=== PATIENT | female | born 1940 | race Caucasian/White ===

== ENCOUNTER 2020-07-22 04:14 | Inpatient (IN) | payer OTHER ==
--- OUTSIDE RECORDS SUMMARY | 2020-07-22 04:17 | XMS REPORT | Continuity of Care Document ---
:1940 Author Organization [facility] Address [address] [place] [address] Dr. Noriega [address] [place] [id number] Care Team Providers Name Role Phone Familia PRIETO Primary Care Physician Unavailable SANDRA Attending Clinician Unavailable Jessica MANCERA Attending Clinician Unavailable Keshia THAKKAR Attending Clinician Unavailable Familia PRIETO Attending Clinician Unavailable Ronaldo BRIZUELA Attending Clinician Unavailable TONY Attending Clinician Unavailable ROSENDA Attending Clinician Unavailable Keshia THAKKAR Admitting Clinician Unavailable Payers Payer Name Policy Type Policy Number Effective Date Expiration Date S estrellita [employer] MEDICARE [id number] 2013 PPO 00:00:00 MEDICARE [id number] ADVANTAGE GENERIC 00:00:00 Problems This patient has no known problems. Allergies, Adverse Reactions, Alerts This patient has no known allergies or adverse reactions. Medications This patient has no known medications. Vital Signs Vital Name Observation Time Observation Value Comments Source HEIGHT 2020-06-14 13:01:08 159 cm WEIGHT 2020-06-14 13:01:08 57.8 kg WEIGHT 2020-05-23 13:15:00 57.9 kg Procedures This patient has no known procedures. Encounters Start End Encounter Admission Attending Care Care Encounter Source Date/Time Date/Time Type Type Clinicians Facility Department ID 2020-07-03 2020-07-03 Outpatient STEPHANIE FLORES MDA MDA [id number] 11:06:14 11:06:14 GIANNI nelson 2020-07-03 2020-07-03 Outpatient STEPHANIE FLORSE MDA MDA [id number] FISCHER 10:21:07 10:21:07 GIANNI nelson 2020-06-14 2020-06-14 Outpatient STEPHANIE CAMARGO MDA, MDA [id number] 14:00:00 23:59:00 S, Sd nelson 2020-06-14 2020-06-14 Outpatient EL MARY JO MDA MDA [id number] 12:55:15 15:26:39 S, Sd nelson 2020-05-23 2020-05-23 Outpatient STEPHANIE THAKKAR, MDA Doretha/Hep/Nu 10 [id number] 12:43:00 19:05:00 CHASTITY nelson 2020-05-22 2020-05-22 Outpatient STEPHANIE PRIETO, MDA MDA [id number] 07:13:44 07:13:44 MATIAS nelson 2020-05-21 2020-05-21 Outpatient STEPHANIE PRIETO, MDA MDA [id number] 11:30:44 12:10:01 MATIAS nelson 2020-05-16 2020-05-16 Outpatient CHELLE BRIZUELA MDA MDA [id number] 08:22:43 08:22:43 Sd nelson 2020-03-29 2020-03-29 Outpatient [facility], MDA MDA [id number] MD 15:10:05 15:10:05 FRED Sd nelson 2020-03-28 2020-03-28 Outpatient CHELLE BRIZUELA MDA MDA [id number] 08:17:03 08:17:03 Sd nelson 2015-10-30 2015-10-30 Outpatient STEPHANIE HERZOG, MDA MDA [id number] 07:45:41 07:45:41 THONY nelson Results This patient has no known results.
[2020-07-22 04:46] LABS: Protime INR 0.95
[2020-07-22 04:47] LABS: Absolute Lymphocytes (CBC) 2.5 K/uL (0.7-4.9); Basophils % 0.8 % (0-1.3); Hematocrit 33.8 % (36.0-45.0); Lymphocytes % 27.5 % (15.3-44.8); MPV 8.5 fL (7.6-11.3); RBC Red Blood Cell Count 3.69 M/uL (3.86-4.86)
[2020-07-22] MEDS ORDERED: ALBUTEROL INHALER 60 PUFF/8 GM IH ONE (04:59)
[2020-07-22 05:05] LABS: ALT/SGPT 57 U/L (12-78); AST/SGOT 50 U/L (15-37); Albumin 2.9 g/dL (3.4-5.0); Alkaline Phosphatase 82 U/L (45-117); BUN Blood Urea Nitrogen 15 mg/dL (7-18); Bicarbonate 26 mmol/L (21-32); Bilirubin Direct 0.1 mg/dL (0-0.2); Bilirubin Total 0.4 mg/dL (0.2-1.0); Glucose Level 120 mg/dL (74-106); Magnesium 2.5 mg/dL (1.8-2.4); NT PRO-BNP 2519 pg/mL (<450); Potassium 3.3 mmol/L (3.5-5.1); Protein, Total 6.3 g/dL (6.4-8.2); Sodium Level 140 mmol/L (136-145); Troponin (Emerg Dept Use Only) < 0.02 ng/mL (0.0-0.045)
--- NOTE | 2020-07-22 05:28 | ER ---
Nurse's Notes [facility] Name: Estefany Ryder Age: 79 yrs Sex: Female : 1940 Arrival Date: 07/22/2020 Time: 04:21 Bed 5 Private MD: Diagnosis: Acute systolic (congestive) heart failure Presentation: 07/22 04:24 Chief complaint: EMS states: she has difficulty breathing all day , on nebs at home. mg2 she is also complaining of bilateral leg swelling. Coronavirus screen: Client denies travel out of the [place] in the last 14 days. Client presents with at least one sign or symptom that may indicate coronavirus-19. Standard/surgical mask placed on the client. Provider contacted for isolation considerations. Ebola Screen: No symptoms or risks identified at this time. Initial Sepsis Screen: Does the patient meet any 2 criteria? No. Patient's initial sepsis screen is negative. Does the patient have a suspected source of infection? No. Patient's initial sepsis screen is negative. Risk Assessment: Do you want to hurt yourself or someone else? Patient reports no desire to harm self or others. Onset of symptoms was July 21, 2020. 04:24 Method Of Arrival: EMS: [facility] mg2 04:24 Acuity: DERIK 3 mg2 Triage Assessment: 04:33 General: Appears in no apparent distress. Behavior is calm, cooperative. Pain: Denies mg2 pain. EENT: No signs and/or symptoms were reported regarding the EENT system. Neuro: Level of Consciousness is awake, alert, obeys commands, Oriented to person, place, time, situation. Cardiovascular: Capillary refill < 3 seconds Patient's skin is warm and dry. Respiratory: Reports shortness of breath at rest Onset: The symptoms/episode began/occurred today, the patient has mild shortness of breath. GI: No signs and/or symptoms were reported involving the gastrointestinal system. : No signs and/or symptoms were reported regarding the genitourinary system. Derm: Skin is intact, is healthy with good turgor, Skin is pink, warm \T\ dry. normal. Musculoskeletal: Circulation, motion, and sensation intact. Capillary refill < 3 seconds. Historical: - Allergies: 04:33 Ibuprofen; mg2 04:33 Indocin; mg2 04:33 Codeine; mg2 04:33 promine; mg2 04:33 E.E.S. 400; mg2 04:33 nalfon 600; mg2 04:33 adenosine; mg2 04:33 chemical stress test; mg2 04:33 caffeine; mg2 04:33 sodium pentaathol; mg2 04:33 fulvicin; mg2 04:33 Naprosyn; mg2 04:33 Clarithromycin; mg2 04:33 sumycin; mg2 04:33 achromycin; mg2 04:33 TETRACYCLINES; mg2 04:33 Keflex; mg2 04:33 keftab; mg2 04:33 Erythromycin; mg2 04:33 Flagyl; mg2 04:33 neodecadron opthalmic soln; mg2 04:33 Maxitrol; mg2 04:33 Cephalosporins; mg2 04:33 Ceclor; mg2 04:33 Cefaclor; mg2 04:33 Cephalexin; mg2 04:33 Biaxin; mg2 04:33 amox TR K CLV; mg2 04:33 Bactrim; mg2 04:33 NSAIDS; mg2 04:33 Advil; mg2 04:33 Aleve; mg2 - PMHx: 04:33 BReast CA; lymphoma; lung CA; COPD; mg2 - PSHx: 04:33 Lobectomy; right breast mastectomy; mg2 - Immunization history:: Flu vaccine status is unknown. - Social history:: Smoking status: Patient/guardian denies using tobacco. Screenin:34 Abuse screen: Denies threats or abuse. Denies injuries from another. Nutritional mg2 screening: No deficits noted. Tuberculosis screening: No symptoms or risk factors identified. Fall Risk IV access (20 points). Assessment: 04:34 General: see triage assessment. mg2 04:35 Cardiovascular: Rhythm is regular. Respiratory: Airway is patent Respiratory effort is mg2 even. 06:24 Respiratory: Breath sounds with crackles bilaterally. rv Vital Signs: 04:24 BP 161 / 82; Pulse 62; Resp 26; Temp 98.5; Pulse Ox 97% on R/A; Weight 57.61 kg; Height mg2 5 ft. 4 in. (162.56 cm); 07:00 BP 124 / 64; Pulse 83; Resp 17; Pulse Ox 100% ; sv 08:00 BP 110 / 50; Pulse 77; Resp 18; Pulse Ox 100% ; sv 09:00 BP 98 / 49; Pulse 87; Resp 19; Pulse Ox 100% ; sv 10:00 BP 99 / 59; Pulse 93; Resp 21; Pulse Ox 100% ; sv 04:24 Body Mass Index 21.80 (57.61 kg, 162.56 cm) mg2 ED Course: 04:20 Inserted saline lock: 20 gauge in right antecubital area, using aseptic technique. rv Blood collected. 04:20 Initial lab(s) drawn, by me, sent to lab. EKG done, by ED staff, reviewed by Federico Torre MD. 04:21 Patient arrived in ED. cf2 04:22 Federico Torre MD is Attending Physician. mh7 04:22 Viet Bishop, RN is Primary Nurse. rv 04:26 Triage completed. mg2 04:34 Arm band placed on. mg2 04:34 Patient has correct armband on for positive identification. consumer insight analyst on. Pulse mg2 ox on. NIBP on. Door closed. Warm blanket given. 04:35 No provider procedures requiring assistance completed. mg2 04:35 COVID swab sent to lab. mg2 04:38 XRAY Chest (1 view) In Process Unspecified. EDMS 05:27 Justina Washburn MD is Hospitalizing Provider. mh7 06:24 IV is patent, with fluids infusing freely, Patient admitted, IV remains in place. rv 06:27 Malone cath inserted, using sterile technique, 16 Fr., by me, balloon inflated, to rv gravity drainage, returned clear yellow urine. Patient tolerated well. 07:33 Basic Metabolic Panel Sent. sv 07:33 CBC with Diff Sent. sv 07:33 LFT's Sent. sv 07:33 Magnesium Sent. sv 09:01 Primary Nurse role handed off by Viet Bishop, MICHEL sv 09:01 Wlima Weir, MICHEL is Primary Nurse. sv Administered Medications: 05:01 Not Given (Patient Refused): Albuterol HFA Inhaler 2 puffs Inhalation once mg2 05:21 Drug: Lasix (furosemide) 20 mg Route: IVP; Site: left antecubital; rv 06:24 Follow up: Response: No adverse reaction rv Outcome: 05:28 Decision to Hospitalize by Provider. mh7 06:24 Admitted to ER Hold. Please see [facility] for further documentation. rv 06:24 Condition: good 06:24 Instructed on the need for admit. 16:03 Patient left the ED. sv Signatures: Dispatcher [employer] EDMS Carmella, Wilma, MICHEL RN Joey Levine RN RN [facility] Viet Bishop RN RN Clemencia Morillo [facility] Federico Torre MD MD 7
--- NOTE | 2020-07-22 05:28 | EDPHYS ---
Physician Documentation [facility] Name: Estefany Ryder Age: 79 yrs Sex: Female : 1940 Arrival Date: 07/22/2020 Time: 04:21 Bed 5 Private MD: ED Physician Federico Torre HPI: 07/22 04:39 This 79 yrs old Female presents to ER via EMS with complaints of Shortness Of mh7 Breath. 04:39 The patient has shortness of breath with light activity. Onset: The symptoms/episode mh7 began/occurred yesterday. Duration: The symptoms are intermittent, with no pattern. The patient's shortness of breath is aggravated by light activity, is alleviated by nothing. Associated signs and symptoms: Pertinent negatives: chest pain, non-productive cough, productive cough, diaphoresis, dizziness, fever, hemoptysis, loss of consciousness, nausea, numbness in extremities, visual changes, vomiting. Severity of symptoms: At their worst the symptoms were moderate last night, in the emergency department the symptoms have improved mildly. Historical: - Allergies: 04:33 Ibuprofen; mg2 04:33 Indocin; mg2 04:33 Codeine; mg2 04:33 promine; mg2 04:33 E.E.S. 400; mg2 04:33 nalfon 600; mg2 04:33 adenosine; mg2 04:33 chemical stress test; mg2 04:33 caffeine; mg2 04:33 sodium pentaathol; mg2 04:33 fulvicin; mg2 04:33 Naprosyn; mg2 04:33 Clarithromycin; mg2 04:33 sumycin; mg2 04:33 achromycin; mg2 04:33 TETRACYCLINES; mg2 04:33 Keflex; mg2 04:33 keftab; mg2 04:33 Erythromycin; mg2 04:33 Flagyl; mg2 04:33 neodecadron opthalmic soln; mg2 04:33 Maxitrol; mg2 04:33 Cephalosporins; mg2 04:33 Ceclor; mg2 04:33 Cefaclor; mg2 04:33 Cephalexin; mg2 04:33 Biaxin; mg2 04:33 amox TR K CLV; mg2 04:33 Bactrim; mg2 04:33 NSAIDS; mg2 04:33 Advil; mg2 04:33 Aleve; mg2 - PMHx: 04:33 BReast CA; lymphoma; lung CA; COPD; mg2 - PSHx: 04:33 Lobectomy; right breast mastectomy; mg2 - Immunization history:: Flu vaccine status is unknown. - Social history:: Smoking status: Patient/guardian denies using tobacco. ROS: 04:39 Constitutional: Negative for fever, chills, and weight loss, Eyes: Negative for injury, mh7 pain, redness, and discharge, ENT: Negative for injury, pain, and discharge, Neck: Negative for injury, pain, and swelling, Cardiovascular: Negative for chest pain, palpitations, and edema, Abdomen/GI: Negative for abdominal pain, nausea, vomiting, diarrhea, and constipation, Back: Negative for injury and pain, : Negative for injury, bleeding, discharge, and swelling. 04:39 Skin: Negative for injury, rash, and discoloration, Neuro: Negative for headache, weakness, numbness, tingling, and seizure, Psych: Negative for depression, anxiety, suicide ideation, homicidal ideation, and hallucinations, Allergy/Immunology: Negative for hives, rash, and allergies, Endocrine: Negative for neck swelling, polydipsia, polyuria, polyphagia, and marked weight changes, Hematologic/Lymphatic: Negative for swollen nodes, abnormal bleeding, and unusual bruising. 04:39 MS/extremity: Positive for swelling. Exam: 04:39 Head/Face: Normocephalic, atraumatic. Eyes: Pupils equal round and reactive to light, mh7 extra-ocular motions intact. Lids and lashes normal. Conjunctiva and sclera are non-icteric and not injected. Cornea within normal limits. Periorbital areas with no swelling, redness, or edema. Neck: Trachea midline, no thyromegaly or masses palpated, and no cervical lymphadenopathy. Supple, full range of motion without nuchal rigidity, or vertebral point tenderness. No Meningismus. Chest/axilla: Normal chest wall appearance and motion. Nontender with no deformity. No lesions are appreciated. Cardiovascular: Regular rate and rhythm with a normal S1 and S2. No gallops, murmurs, or rubs. Normal PMI, no JVD. No pulse deficits. 04:39 Abdomen/GI: Soft, non-tender, with normal bowel sounds. No distension or tympany. No guarding or rebound. No evidence of tenderness throughout. Back: No spinal tenderness. No costovertebral tenderness. Full range of motion. Skin: Warm, dry with normal turgor. Normal color with no rashes, no lesions, and no evidence of cellulitis. MS/ Extremity: Pulses equal, no cyanosis. Neurovascular intact. Full, normal range of motion. Neuro: Awake and alert, GCS 15, oriented to person, place, time, and situation. Cranial nerves II-XII grossly intact. Motor strength 5/5 in all extremities. Sensory grossly intact. Cerebellar exam normal. Normal gait. Psych: Awake, alert, with orientation to person, place and time. Behavior, mood, and affect are within normal limits. 04:39 Constitutional: The patient appears alert, awake, uncomfortable. 04:39 Respiratory: mild respiratory distress is noted, Respirations: tachypnea, that is mild, Breath sounds: rhonchi, that are mild, are scattered, wheezing: expiratory that is mild, is scattered, Respiratory rate: 26 Vital Signs: 04:24 BP 161 / 82; Pulse 62; Resp 26; Temp 98.5; Pulse Ox 97% on R/A; Weight 57.61 kg; Height mg2 5 ft. 4 in. (162.56 cm); 07:00 BP 124 / 64; Pulse 83; Resp 17; Pulse Ox 100% ; sv 08:00 BP 110 / 50; Pulse 77; Resp 18; Pulse Ox 100% ; sv 09:00 BP 98 / 49; Pulse 87; Resp 19; Pulse Ox 100% ; sv 10:00 BP 99 / 59; Pulse 93; Resp 21; Pulse Ox 100% ; sv 04:24 Body Mass Index 21.80 (57.61 kg, 162.56 cm) mg2 MDM: 05:26 Differential diagnosis: Anemia Anxiety Reaction asthma, Bronchitis CHF exacerbation, mh7 Chronic Obstructive Pulmonary Disease Myocardial Infarction pneumonia, Pneumothorax Psychogenic pulmonary edema, reactive airway disease. Data reviewed: vital signs, nurses notes, EMS record, lab test result(s), cardiac enzymes, CBC, electrolytes, EKG, radiologic studies, plain films. Data interpreted: Pulse oximetry: on 2L(s) per nasal canula, is 97 %. Interpretation: acceptable. Counseling: I had a detailed discussion with the patient and/or guardian regarding: the historical points, exam findings, and any diagnostic results supporting the discharge/admit diagnosis, the presence of at least one elevated blood pressure reading (>120/80) during this emergency department visit, lab results, radiology results, the need for further work-up and treatment in the hospital. 05:28 Patient medically screened. [facility] 07/22 04:23 Order name: Basic Metabolic Panel [facility] 07/22 04:23 Order name: CBC with Diff [facility] 07/22 04:23 Order name: LFT's [facility] 07/22 04:23 Order name: Magnesium [facility] 07/22 04:23 Order name: NT PRO-BNP; Complete Time: 05:09 [facility] 07/22 04:23 Order name: PT-INR; Complete Time: 05:09 [facility] 07/22 04:23 Order name: Troponin (emerg Dept Use Only); Complete Time: 05:09 [facility] 07/22 04:23 Order name: Basic Metabolic Panel; Complete Time: 05:09 EDMS 07/22 04:23 Order name: CBC with Automated Diff; Complete Time: 05:09 MS 07/22 04:23 Order name: Liver (Hepatic) Function; Complete Time: 05:09 EDVT 07/22 04:23 Order name: Magnesium; Complete Time: 05:09 MS 07/22 05:36 Order name: SARS-COV-2 RT PCR [facility] 07/22 08:15 Order name: CBC with Automated Diff [facility] 07/22 04:23 Order name: XRAY Chest (1 view) [facility] 07/22 04:23 Order name: EKG; Complete Time: 04:24 [facility] 07/22 08:15 Order name: CONS Physician Consult [facility] 07/22 08:15 Order name: Heart Healthy [facility] 07/22 08:15 Order name: Echo with Doppler [facility] 07/22 08:15 Order name: CBC with Automated Diff [facility] 07/22 08:15 Order name: Comprehensive Metabolic Panel [facility] 07/22 08:15 Order name: Comprehensive Metabolic Panel [facility] 07/22 08:15 Order name: Magnesium EDMS 07/22 08:15 Order name: Magnesium EDMS 07/22 08:15 Order name: NT PRO-BNP MS 07/22 08:15 Order name: NT PRO-BNP EDMS 07/22 08:15 Order name: Phosphorus MS 07/22 08:15 Order name: Phosphorus MS 07/22 04:23 Order name: Cardiac monitoring; Complete Time: 04:32 [facility] 07/22 04:23 Order name: EKG - Nurse/Tech; Complete Time: 04:32 7 07/22 04:23 Order name: IV Saline Lock; Complete Time: :32 7 07/22 04:23 Order name: Labs collected and sent; Complete Time: :32 7 07/22 04:23 Order name: O2 Per Protocol; Complete Time: 04:32 mh7 07/22 04:23 Order name: O2 Sat Monitoring; Complete Time: :32 mh7 Administered Medications: 05:01 Not Given (Patient Refused): Albuterol HFA Inhaler 2 puffs Inhalation once mg2 05:21 Drug: Lasix (furosemide) 20 mg Route: IVP; Site: left antecubital; rv 06:24 Follow up: Response: No adverse reaction rv Disposition: 07/22/20 05:28 Hospitalization ordered by Justina Washburn for Inpatient Admission. Preliminary diagnosis is Acute systolic (congestive) heart failure. - Bed requested for Telemetry/MedSurg (Inpatient). - Status is Inpatient Admission. sv - Condition is Stable. - Problem is new. - Symptoms have improved. Signatures: Dispatcher [employer] EDVT Wilma Weir RN RN sv Webb, Martha, RN RN Teri Madrid RN RN Vivian Garcia Michele RN MICHEL [facility] Viet Bishop RN Federico Hernandez MD MD mh7 Corrections: (The following items were deleted from the chart) 04:46 04:31 CORONAVIRUS+MR.LAB.BRZ ordered. [facility] EDVT 05:33 05:28 Hospitalization Ordered by Justina Washburn MD for Inpatient Admission. Preliminary diagnosis is Acute systolic (congestive) heart failure. Bed requested for Telemetry/MedSurg (Inpatient). Status is Inpatient Admission. Condition is Stable. Problem is new. Symptoms have improved. 7 07:08 05:33 07/22/2020 05:28 Hospitalization Ordered by Justina Washburn MD for Inpatient ss Admission. Preliminary diagnosis is Acute systolic (congestive) heart failure. Bed requested for [facility] ER HOLD. Status is Inpatient Admission. Condition is Stable. Problem is new. Symptoms have improved. mw 07:10 07:08 07/22/2020 05:28 Hospitalization Ordered by Justina Washburn MD for Inpatient ss Admission. Preliminary diagnosis is Acute systolic (congestive) heart failure. Bed requested for Telemetry/MedSurg (observation). Status is Inpatient Admission. Condition is Stable. Problem is new. Symptoms have improved. ss 08:51 07:10 07/22/2020 05:28 Hospitalization Ordered by Justina aWshburn MD for Inpatient eb Admission. Preliminary diagnosis is Acute systolic (congestive) heart failure. Bed requested for Telemetry/MedSurg (Inpatient). Status is Inpatient Admission. Condition is Stable. Problem is new. Symptoms have improved. ss 14:27 08:51 07/22/2020 05:28 Hospitalization Ordered by Justina Washburn MD for Inpatient sv Admission. Preliminary diagnosis is Acute systolic (congestive) heart failure. Bed requested for [facility] ER HOLD. Status is Inpatient Admission. Condition is Stable. Problem is new. Symptoms have improved. eb 16:03 14:27 07/22/2020 05:28 Hospitalization Ordered by Justina Washburn MD for Inpatient sv Admission. Preliminary diagnosis is Acute systolic (congestive) heart failure. Bed requested for Telemetry/MedSurg (Inpatient). Status is Inpatient Admission. Condition is Stable. Problem is new. Symptoms have improved. sv
[2020-07-22] MEDS ORDERED: FUROSEMIDE 20 MG/ 2ML VIAL ONE (05:36)
[2020-07-22] MEDS ORDERED: ONDANSETRON 4 MG/2 ML VIAL IV PRN (08:10)
[2020-07-22] MEDS ORDERED: ACETAMINOPHEN 500 MG TAB PO PRN (08:10)
[2020-07-22] MEDS: FUROSEMIDE 40 MG/4 ML VIAL IV SCH ×2 (09:00→16:56)
[2020-07-22] MEDS ORDERED: NA CHLORIDE 0.9% 1,000 ML IV SCH (09:00)
[2020-07-22] MEDS: ENOXAPARIN 40 MG/0.4 ML SQ SCH (09:00)
--- NOTE | 2020-07-22 10:15 | EKG ---
Test Date: 2020-07-22 Test Time: 04:24:57 Node Js Developer: KARL MEASUREMENT RESULTS: Intervals: Rate: 101 PA: 166 QRSD: 82 QT: 348 QTc: 451 Altair: P: 76 PA: 166 QRS: 71 T: 59 INTERPRETIVE STATEMENTS: Sinus tachycardia with premature atrial complexes Otherwise normal ECG Compared to ECG 01/13/2006 09:54:42 Atrial premature complex(es) now present Sinus rhythm no longer present Electronically Signed On 07-22-20 10:15:03 CDT by Emerson Palacios
[2020-07-22 10:18] VITALS: BMI 21.5
--- NOTE | 2020-07-22 12:19 | RAD REPORT ---
EXAM DESCRIPTION: RAD - Chest Single View - 07/22/2020 4:40 am CLINICAL HISTORY: SOB, lung cancer COMPARISON: February 2017 TECHNIQUE: AP portable chest image was obtained 07/22/2020 4:40 am . FINDINGS: Right lung field fibrotic changes are present. Interstitial and patchy alveolar opacities are present in the lower right lung field increased over the prior study. Stranding in the upper righ t lung field is not clearly different and probably scarring. Fullness of the right hilum is present b ut not clearly different from comparison. Left apical fluid or pleural thickening has not changed. Postsurgical changes are noted in the left h ilum and left suprahilar region. Left-sided Port-A-Cath has been removed since prior imaging. Left he midiaphragm tenting is present. Heart and vasculature are normal. No measurable pleural effusion and no pneumothorax. No acute bony a bnormality seen. No acute aortic findings suspected. IMPRESSION: Suspected patchy pneumonia in the lower right lung field superimposed on a chronic old h as not. Chronic fibrotic and postsurgical changes to the left hemithorax.
[2020-07-22] MEDS ORDERED: POTASSIUM CL SA 10 MEQ TAB PO ONE ×2 (14:46→15:18)
[2020-07-22] MEDS: Levofloxacin500mg IV 500 MG/100 ML BAG IV SCH (15:00)
[2020-07-22] MEDS ORDERED: Levofloxacin500mg IV 500 MG/100 ML BAG IV ONE (15:18)
[2020-07-22] MEDS: ALBUTEROL 2.5 MG/3 ML NEB SOL NEB SCH ×2 (16:00→20:05)
[2020-07-22] MEDS: IPRATROPIUM BROM 0.5MG/2.5ML NEB SCH ×2 (16:00→20:05)
[2020-07-22] MEDS: METHYLPREDNISOLONE 40 MG INJ IV SCH ×2 (16:58→17:00)
[2020-07-22] MEDS: METOPROLOL TAR 50 MG TAB PO SCH (21:16)
[2020-07-23] MEDS: FUROSEMIDE 40 MG/4 ML VIAL IV SCH ×2 (00:49→08:54)
[2020-07-23] MEDS: METHYLPREDNISOLONE 40 MG INJ IV SCH ×2 (00:50→08:54)
[2020-07-23] MEDS: ALBUTEROL 2.5 MG/3 ML NEB SOL NEB SCH ×3 (01:35→13:13)
[2020-07-23] MEDS: IPRATROPIUM BROM 0.5MG/2.5ML NEB SCH ×3 (01:35→13:13)
[2020-07-23 06:10] LABS: Absolute Lymphocytes (CBC) 0.8 K/uL (0.7-4.9); Basophils % 0.2 % (0-1.3); Hematocrit 33.8 % (36.0-45.0); Lymphocytes % 14.3 % (15.3-44.8); MPV 9.2 fL (7.6-11.3); RBC Red Blood Cell Count 3.68 M/uL (3.86-4.86)
[2020-07-23 06:25] LABS: Albumin 2.5 g/dL (3.4-5.0); Bilirubin Total 0.3 mg/dL (0.2-1.0); Magnesium 2.2 mg/dL (1.8-2.4); Phosphorus 2.2 mg/dL (2.5-4.9); Potassium 3.3 mmol/L (3.5-5.1); Protein, Total 5.8 g/dL (6.4-8.2)
[2020-07-23] MEDS: POTASS/SODIUM PHOSPHATE 1 PKT POWD.PACK PO SCH ×3 (08:53→11:04)
[2020-07-23] MEDS: ENOXAPARIN 40 MG/0.4 ML SQ SCH (08:54)
[2020-07-23] MEDS: METOPROLOL TAR 50 MG TAB PO SCH (08:55)
[2020-07-23] MEDS ORDERED: METOPROLOL TAR 50 MG TAB PO SCH (09:00)
[2020-07-23] MEDS ORDERED: POTASSIUM CL SA 10 MEQ TAB PO ONE (09:00)
--- NOTE | 2020-07-23 10:23 | CON ---
Date of Consultation: 07/22/2020 Reason For Consultation: Possible congestive heart failure. History Of Present Illness: Ms. Ryder is a 79-year-old woman, who has not had any previous cardiac history before, except for palpitations. She came in with shortness of breath. Denied any chest leo n. Denied any PND, orthopnea, pedal edema, palpitations, or syncope. She denied any fever or chills . Symptoms have been going on for a couple of weeks. She had already ruled out for an TN. Her BNP was 2519 and she was hypokalemic with a potassium of 3.3. Allergies: HER ALLERGY LIST IS VERY EXTENSIVE, BUT INCLUDE ADHESIVE CAFFEINE, CEFACLOR, AND CEPHALEX IN. Past Medical History: Includes COPD, Martino esophagus, lymphoma, breast cancer, lung cancer. Past Surgical History: She is status post lobectomy. Medications: At home include inhalers, metoprolol, and Synthroid. Review of Systems: Negative. Social History: Negative. Family History: Noncontributory. Physical Examination: Vital Signs: Stable. She was in sinus rhythm with PACs. HEENT: Negative. Neck: Supple without any bruit, lymphadenopathy, JVD, or thyromegaly. Chest: Revealed expiratory wheezing. No rales. Cardiac: Revealed a regular rhythm and rate with occasional ectopy, but no murmurs, gallops, or rubs . Abdomen: Benign. Extremities: Revealed no clubbing, cyanosis, or edema. Diagnostic Data: EKG showed sinus tachycardia with PACs. Chest x-ray was unremarkable. Potassium o f 3.3. BNP was 2519. Troponin was negative. Impression And Plan: Shortness of breath, but I believe is probably more secondary to chronic obstru ctive pulmonary disease rather than congestive heart failure. Echocardiogram is pending. We will co ntinue that as an outpatient. I would continue her on metoprolol and thyroid medicine. I would add nebulizer treatment for her and correct her potassium, give her a low dose Lasix and see how she resp onds, but as far as I am concerned, she can go home today and I will see her in the office and set he r up for an echocardiogram and maybe a Lexiscan. NB/MODL Voice ID: [id number] Report ID: [id number]
--- NOTE | 2020-07-23 13:03 | PN ---
Date of Progress Note: 07/23/2020 Ms. Ryder yesterday was admitted with a combination of COPD, possible congestive heart failure, rece ived Lasix, nebulized treatment. Overnight, she is doing better. I think she is good for discharge today on her home medication plus a low-dose Lasix. I think she should be taking her Advair Diskus i nhalers at home. 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 She should come to my office in the near future and get a 2D echocardiogram and a followup. FILIPPO/VY Voice ID: [id number] Report ID: [id number]
[2020-07-23 13:26] VITALS: BP 149/62; TEMP 97.7
[2020-07-23 14:45] VITALS: O2SAT 98
[2020-07-23] MEDS: Levofloxacin500mg IV 500 MG/100 ML BAG IV SCH (15:00)
--- NOTE | 2020-07-24 07:17 | EKG ---
Test Date: 2020-07-22 Test Time: 20:30:23 Regional Engagement Consultant: RT-O MEASUREMENT RESULTS: Intervals: Rate: 111 AK: 164 QRSD: 76 QT: 346 QTc: 470 [place]: P: 74 AK: 164 QRS: 33 T: 57 INTERPRETIVE STATEMENTS: Sinus tachycardia with frequent premature ventricular complexes Otherwise normal ECG Compared to ECG 07/22/2020 04:24:57 Ventricular premature complex(es) now present Atrial premature complex(es) no longer present Electronically Signed On 07-24-20 07:14:25 CDT by Emerson Palacios
--- NOTE | 2020-07-26 19:40 | P.HP ---
Certification for Inpatient Patient admitted to: Inpatient With expected LOS: >2 Midnights Patient will require the following post-hospital care: None Practitioner: I am a practitioner with admitting privileges, knowledge of patient current condition, hospital course, and medical plan of care. Services: Services provided to patient in accordance with Admission requirements found in Title 42 Section 412.3 of the Code of Federal Regulations Patient History Date of Service: 07/22/20 Reason for admission: Acute COPD exacerbation vs. acute CHF exacerbation History of Present Illness: Patient is a 79-year-old female who came into the hospital with difficulty breathing. Patient had family coming over for her 80th birthday which is tomorrow. She was Brought into the emergency room and chest x-ray revealed pulmonary edema. Patient also with a history of COPD. Patient has wheezing. Patient may have a COPD exacerbation. We will go ahead and start patient on nebs and steroid treatments. Continue with gentle diuresis. Cardiology consultation as well. Patient will be admitted to the hospital for further evaluation. Allergies adenosine Allergy (Verified 07/22/20 07:55) Rash caffeine Allergy (Verified 07/22/20 07:55) Rash cefaclor Allergy (Verified 07/22/20 07:55) Rash cephalexin Allergy (Verified 07/22/20 07:55) Rash Cephalosporins Allergy (Verified 07/22/20 07:55) Rash clarithromycin Allergy (Verified 07/22/20 07:55) Rash codeine Allergy (Verified 07/22/20 07:55) Rash dexamethasone [From Maxitrol] Allergy (Verified 07/22/20 07:55) Rash erythromycin base Allergy (Verified 07/22/20 07:55) Rash ibuprofen Allergy (Verified 07/22/20 07:55) Rash indomethacin [From Indocin] Allergy (Verified 07/22/20 07:55) Rash metronidazole [From Flagyl] Allergy (Verified 07/22/20 07:55) Rash naproxen [From Naprosyn] Allergy (Verified 07/22/20 07:55) Rash neomycin [From Maxitrol] Allergy (Verified 07/22/20 07:55) Rash NSAIDS (Non-Steroidal Anti-Inflamma Allergy (Verified 07/22/20 07:55) Rash polymyxin B [From Maxitrol] Allergy (Verified 07/22/20 07:55) Rash Sulfa (Sulfonamide Antibiotics) Allergy (Verified 07/22/20 07:55) Rash tetracycline [From Sumycin] Allergy (Verified 07/22/20 07:55) Rash Tetracyclines Allergy (Verified 07/22/20 07:55) Rash amox tr-k clv 500-125 Allergy (Uncoded 07/22/20 07:55) Rash Chemical stress test Allergy (Uncoded 07/22/20 07:55) Rash EES 400 Allergy (Uncoded 07/22/20 07:55) Rash fulvicin Allergy (Uncoded 07/22/20 07:55) Rash naflon 600 Allergy (Uncoded 07/22/20 07:55) Rash neodecadron ophthalmic soln Allergy (Uncoded 07/22/20 07:55) Rash promine Allergy (Uncoded 07/22/20 07:55) Rash Sodium pentathol Allergy (Uncoded 07/22/20 07:55) Rash Home Medications: Albuterol Inhaler [Ventolin Inhaler*] 2 puff IH Q6H PRN #1 hfa.aer.ad 07/22/20 Albuterol Sulfate [Albuterol Sulfate 0.083% Neb Soln] 2.5 mg IH PRN PRN 07/22/20 Balanced Essentials 1 tab PO PRN PRN 07/22/20 Colloidal Silver 2 - 4 oz PO TID 07/22/20 Wilberto's 100% Aloe Vera 4.5 misc PO DAILY 07/22/20 Levofloxacin [Levaquin] 500 mg PO DAILY #7 tablet 07/22/20 Levothyroxine Sodium [Levothyroxine] 100 mcg PO DAILY 07/22/20 Metoprolol Succinate [Toprol Xl*] 25 mg PO BID 07/22/20 Multivitamin 1 each PO DAILY 07/22/20 Nutribiotic Defense Plus Vegan 250 mg PO DAILY 07/22/20 Tiotropium [Spiriva Handihaler*] 18 mcg IH BEDTIME 07/22/20 predniSONE [Prednisone*] 20 mg PO BID #11 tab 07/22/20 Furosemide [Lasix] 40 mg PO DAILY 30 Days #30 tab 07/23/20 - Past Medical/Surgical History -: Breast cancer -: Lymphoma -: Lung cancer -: COPD -: Lobectomy -: R breast mastectomy - Family History Father Family History: Reviewed- Non-Contributory - Social History Smoking Status: Unknown if ever smoked Alcohol use: No CD- Drugs: No Review of Systems 10-point ROS is otherwise unremarkable Physical Examination - Vital Signs Temperature: 97.7 F Blood Pressure: 149/62 Pulse: 88 Respirations: 19 Pulse Ox (%): 93 - Physical Exam General: Alert, In no apparent distress, Oriented x3 HEENT: Atraumatic, PERRLA, Mucous membr. moist/pink, EOMI, Sclerae nonicteric Neck: Supple, 2+ carotid pulse no bruit, No LAD, Without JVD or thyroid abnormality Respiratory: Diminished, Expiratory wheezes Cardiovascular: Regular rate/rhythm, Normal S1 S2 Gastrointestinal: Normal bowel sounds, Soft and benign, Non-distended, No tenderness Musculoskeletal: No tenderness Integumentary: No rashes Neurological: Normal gait, Normal speech, Normal strength at 5/5 x4 extr, Normal tone, Sensation intact, Cranial nerves 3-12 intact, Normal affect Lymphatics: No axilla or inguinal lymphadenopathy Assessment & Plan - Problems (Diagnosis) (1) Acute exacerbation of CHF (congestive heart failure) Status: Acute (2) Acute exacerbation of COPD with asthma Status: Acute (3) Anxiety disorder Status: Acute - Plan Plan: 1. Continue with nebs and steroids and antibiotics 2. Continue with diuretics 3. Echocardiogram which if cannot be done this we can outpatient cardiology office 4. Monitor room air oxygenation 5. Monitor orthostatics 6. Out of bed and ambulate 7. GI and DVT prophylaxis Discharge Plan: Home Plan to discharge in: Greater than 2 days - Advance Directives Does patient have a Living Will: Yes Does patient have a Durable POA for Healthcare: Yes - Code Status/Comfort Care Code Status Assessed: Yes Code Status: Full Code Critical Care: No Time Spent Managing PTS Care (In Minutes): 45
--- NOTE | 2020-07-26 19:42 | P.DS ---
Discharge Date: 07/23/20 Disposition: ROUTINE DISCHARGE Discharge Condition: GOOD Reason for Admission: Acute COPD exacerbation vs. acute CHF exacerbation - Problems (1) Acute exacerbation of CHF (congestive heart failure) Status: Acute (2) Acute exacerbation of COPD with asthma Status: Acute (3) Anxiety disorder Status: Acute Brief History of Present Illness: Patient is a 79-year-old female who came into the hospital with difficulty breathing. Patient had family coming over for her 80th birthday which is tomorrow. She was Brought into the emergency room and chest x-ray revealed pulmonary edema. Patient also with a history of COPD. Patient has wheezing. Patient may have a COPD exacerbation. We will go ahead and start patient on nebs and steroid treatments. Continue with gentle diuresis. Cardiology consultation as well. Patient will be admitted to the hospital for further evaluation. Hospital Course: Patient has done well during hospital stay. Patient is clinically improving. Patient is stable for discharge at this time. Patient will continue with low dose diuretics along with steroids and antibiotic creams. Outpatient follow up with cardiology. Vital Signs/Physical Exam: Temp Pulse Resp BP Pulse Ox 97.7 F 88 19 149/62 H 93 07/26/20 19:40 07/26/20 19:40 07/26/20 19:40 07/26/20 19:40 07/26/20 19:40 General: Alert, In no apparent distress, Oriented x3 Laboratory Data at Discharge: WBC 5.60 K/uL (4.3-10.9) D 07/23/20 05:57 Hgb 11.0 g/dL (12.0-15.0) L 07/23/20 05:57 Hct 33.8 % (36.0-45.0) L 07/23/20 05:57 Plt Count 219 K/uL (152-406) 07/23/20 05:57 PT 10.9 SECONDS (9.5-12.5) 07/22/20 04:20 INR 0.95 07/22/20 04:20 Sodium 139 mmol/L (136-145) 07/23/20 15:01 Potassium 4.0 mmol/L (3.5-5.1) 07/23/20 15:01 BUN 21 mg/dL (7-18) H 07/23/20 15:01 Creatinine 1.23 mg/dL (0.55-1.3) 07/23/20 15:01 Glucose 146 mg/dL (74-106) H 07/23/20 15:01 Phosphorus 2.2 mg/dL (2.5-4.9) L 07/23/20 05:57 Magnesium 2.2 mg/dL (1.8-2.4) 07/23/20 05:57 Total Bilirubin 0.3 mg/dL (0.2-1.0) 07/23/20 05:57 AST 34 U/L (15-37) 07/23/20 05:57 ALT 50 U/L (12-78) 07/23/20 05:57 Alkaline Phosphatase 79 U/L (45-117) 07/23/20 05:57 Home Medications: Albuterol Inhaler [Ventolin Inhaler*] 2 puff IH Q6H PRN #1 hfa.aer.ad 07/22/20 Albuterol Sulfate [Albuterol Sulfate 0.083% Neb Soln] 2.5 mg IH PRN PRN 07/22/20 Balanced Essentials 1 tab PO PRN PRN 07/22/20 Colloidal Silver 2 - 4 oz PO TID 07/22/20 Wilberto's 100% Aloe Vera 4.5 misc PO DAILY 07/22/20 Levofloxacin [Levaquin] 500 mg PO DAILY #7 tablet 07/22/20 Levothyroxine Sodium [Levothyroxine] 100 mcg PO DAILY 07/22/20 Metoprolol Succinate [Toprol Xl*] 25 mg PO BID 07/22/20 Multivitamin 1 each PO DAILY 07/22/20 Nutribiotic Defense Plus Vegan 250 mg PO DAILY 07/22/20 Tiotropium [Spiriva Handihaler*] 18 mcg IH BEDTIME 07/22/20 predniSONE [Prednisone*] 20 mg PO BID #11 tab 07/22/20 Furosemide [Lasix] 40 mg PO DAILY 30 Days #30 tab 07/23/20 New Medications: Furosemide [Lasix] 40 mg PO DAILY 30 Days #30 tab Levofloxacin [Levaquin] 500 mg PO DAILY #7 tablet predniSONE [Prednisone*] 20 mg PO BID #11 tab Albuterol Inhaler [Ventolin Inhaler*] 2 puff IH Q6H PRN #1 hfa.aer.ad PRN Reason: Shortness Of Breath Physician Discharge Instructions: OK TO DC IV AND DC HOME FOLLOW-UP WITH PRIMARY CARE PROVIDER IN 1-2 WEEKS FOLLOW-UP WITH CARDIOLOGY & pulmonary IN 1-2 WEEKS RETURN TO THE ER IF symptoms worsen CALL or TEXT DR. GUILLERMO AT [phone] IF ANY QUESTIONS REGARDING HOSPITAL STAY. PLEASE CALL THE FLOOR AT [phone] IF ANY MEDICATION OR NURSING QUESTIONS. Diet: AHA Activity: Fall precautions Followup: Emerson Palacios MD [ACTIVE - CAN ADMIT] - NONE,NONE [Primary Care Provider] - Time spent managing pt's care (in minutes): 35
== END 2020-07-23 15:49 | disposition home or self-care (01) | DRG 190 ==
LOC: ER 04:14 → ERHOLD 08:11 → 2ND 15:27
PROVIDERS: ADMIT Hospitalist; ATTEND Hospitalist
DX: J44.1 Chronic obstructive pulmonary disease with (acute) exacerbation (principal); I50.23 Acute on chronic systolic (congestive) heart failure; B37.81 Candidal esophagitis; E87.6 Hypokalemia; F41.9 Anxiety disorder, unspecified; Z88.1 Allergy status to other antibiotic agents; Z88.5 Allergy status to narcotic agent; Z88.8 Allergy status to other drugs, medicaments and biological substances; Z91.018 Allergy to other foods; Z85.3 Personal history of malignant neoplasm of breast; Z85.118 Personal history of other malignant neoplasm of bronchus and lung; Z79.890 Hormone replacement therapy; Z90.11 Acquired absence of right breast and nipple; Z79.52 Long term (current) use of systemic steroids; Z20.822 Contact with and (suspected) exposure to COVID-19
CPT/HCPCS: 36415; 51702; 71045; 80048; 80053; 80076; 83735; 83880; 84100; 84484; 85025; 85610; 93005; 94640; 96374; 99285; J1650; J1940; J2920; U0003

== ENCOUNTER 2022-05-29 15:38 | Emergency (ER) | payer OTHER ==
--- OUTSIDE RECORDS SUMMARY | 2022-05-29 15:48 | XMS REPORT | Continuity of Care Document ---
:1940 Author Organization [facility] t Address [address] [place] [address] [address]. [address]. [address] [place] [address] Care Team Providers Name Role Phone [phone] Primary Care Physician Unavailable VEENA GOLDBERG Attending Clinician Unavailable Rey Asencio Attending Clinician CHASTITY THAKKAR Attending Clinician Unavailable Bridgette Lara MD Attending Clinician BRIDGETTE LARA Attending Clinician Unavailable Doctor Unassigned, [place] Attending Clinician Unavailable GIANNI CASANOVA Attending Clinician Unavailable MATIAS PRIETO I Attending Clinician Unavailable KARLY BHATIA Attending Clinician Unavailable VINCENZO LORA Attending Clinician Unavailable CHELLE BRIZUELA Attending Clinician Unavailable TOMY MANCERA Attending Clinician Unavailable FRED JIMENEZ Attending Clinician Unavailable THONY HERZOG Attending Clinician Unavailable VEENA GOLDBERG Admitting Clinician Unavailable VINCENZO LORA Admitting Clinician Unavailable CHASTITY THAKKAR Admitting Clinician Unavailable Payers Payer Name Policy Type Policy Number Effective Date Expiration Date S estrellita AETNA MEDICARE [id number] 2021 PPO 00:00:00 MEDICARE [id number] ADVANTAGE GENERIC 00:00:00 Problems Condition Condition Condition Status Onset Resolution Last Treating Co mments Source Name Details Category Date Date Treatment Clinician Date Right arm Right arm Disease Active 2014-04 Uni vers pain pain -06 ity of 00:: [place] [id number] [facility] [place] Back pain Back pain Disease Active 2014-04 Uni vers 04-19 ity of 00:00: [place] 00 [facility] 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:38:36 l failure failure [place] (disorder) (disorder) Active Problem 03/15/2022 [facility] Past Past Problem Active 2022-03-15 Memor ia history of history of 00:38:36 l clinical clinical Ryland n finding finding (context-d (context-d ependent ependent category) category) Active Problem 03/15/2022 [facility] Hypothyroi Problem Active 2022-03-15 M emoria dism Hypothyroi 00:38:36 l (disorder) dism [place] n (disorder) Active Problem 03/15/2022 [facility] Peripheral Periphera Problem Active 2022-03-15 Memoria nerve l nerve 00:38:36 l disease disease [place] (disorder) (disorder) Active Problem 03/15/2022 [facility] Restless Restless Problem Active 2022-03-15 Memoria legs legs 00:38:36 l (disorder) (disorder) He rmann Active Problem 03/15/2022 [facility] Allergies, Adverse Reactions, Alerts Allergy Allergy Status Severity Reaction(s) Onset Inactive Treating Comm ents Source Name Type Date Date Clinician n Propensi Active ty to 6-15 adverse 00:00: reaction 00 to drug Naprosyn Propensi Active - Oral ty to 3-03 adverse 00:00: reaction 00 to drug erythrom Propensi Active ycin ty to 2-23 ethylsuc adverse 00:00: cinate reaction 00 (Not to drug Checked) NYSTATIN DRUG Active 2018- MD INGREDI 7-25 Anderso 00:00: n 00 OMEPRAZO DRUG Active 2019-0 MD LE INGREDI 7-25 Anderso 00:00: n 00 PANTOPRA DRUG Active 2019- MD ZOLE INGREDI 7-25 Anderso 00:00: n 00 SULFAMET DRUG Active 2019-0 MD HOXAZOLE 7-25 Anderso -TRIMETH 00:00: n OPRIM 00 ACHROMYC DRUG Active 2019-0 MD IN 7-25 Anderso 00:00: n 00 NAPROXEN DRUG Active 2018-0 MD SODIUM INGREDI 7-25 Anderso 00:00: n 00 CEPHALEX DRUG Active 2019-0 MD IN HCL INGREDI 7-25 Anderso 00:00: n 00 MAGNESIU DRUG Active 2019-0 MD M INGREDI 7-25 Anderso CITRATE 00:00: n 00 NYSTATIN DRUG Active 2019-0 MD INGREDI 7-25 Anderso 00:00: n 00 OMEPRAZO DRUG Active 2019-0 MD LE INGREDI 7-25 Anderso 00:00: n 00 PANTOPRA DRUG Active 2019-0 MD ZOLE INGREDI 7-25 Anderso 00:00: n 00 SULFAMET DRUG Active 2019-0 MD HOXAZOLE 7-25 Anderso -TRIMETH 00:00: n OPRIM 00 ACHROMYC DRUG Active 2019-0 MD IN 7-25 Anderso 00:00: n 00 NAPROXEN DRUG Active 2019-0 MD SODIUM INGREDI 7-25 Anderso 00:00: n 00 CEPHALEX DRUG Active 2019-0 MD IN HCL INGREDI 7-25 Anderso 00:00: n 00 MAGNESIU DRUG Active 2019-0 MD M INGREDI 7-25 Anderso CITRATE 00:00: n 00 NYSTATIN DRUG Active 2019-0 MD INGREDI 7-25 Anderso 00:00: n 00 OMEPRAZO DRUG Active 2019-0 MD LE INGREDI 7-25 Anderso 00:00: n 00 PANTOPRA DRUG Active 2019-0 MD ZOLE INGREDI 7-25 Anderso 00:00: n 00 SULFAMET DRUG Active 2019-0 MD HOXAZOLE 7-25 Anderso -TRIMETH 00:00: n OPRIM 00 ACHROMYC DRUG Active 2019-0 MD IN 7-25 Anderso 00:00: n 00 NAPROXEN DRUG Active 2019-0 MD SODIUM INGREDI 7-25 Anderso 00:00: n 00 CEPHALEX DRUG Active 2019-0 MD IN HCL INGREDI 7-25 Anderso 00:00: n 00 MAGNESIU DRUG Active 2019-0 MD M INGREDI 7-25 Anderso CITRATE 00:00: n 00 NYSTATIN DRUG Active 2019-0 MD INGREDI 7-25 Anderso 00:00: n 00 OMEPRAZO DRUG Active 2019-0 MD LE INGREDI 7-25 Anderso 00:00: n 00 PANTOPRA DRUG Active 2019-0 MD ZOLE INGREDI 7-25 Anderso 00:00: n 00 SULFAMET DRUG Active 2019-0 MD HOXAZOLE 11-05 Anderso -TRIMETH 00:00: n OPRIM 00 ACHROMYC DRUG Active 2018- MD IN 11-05 Anderso 00:00: n 00 NAPROXEN DRUG Active 2018- MD SODIUM INGREDI 11-05 Anderso 00:00: n 00 CEPHALEX DRUG Active 2018- MD IN HCL INGREDI 11-05 Anderso 00:00: n 00 MAGNESIU DRUG Active MD M INGREDI 11-05 Anderso CITRATE 00:00: n 00 FLUCONAZ DRUG Active 2018- MD OLE INGREDI 11-02 Anderso 00:00: n 00 FLUCONAZ DRUG Active MD OLE INGREDI 11-02 Anderso 00:00: n 00 FLUCONAZ DRUG Active 2018- MD OLE INGREDI 11-02 Anderso 00:00: n 00 FLUCONAZ DRUG Active MD OLE INGREDI 11-02 Anderso 00:00: n 00 NSAIDS Drug Active MD (NON-MICHEAL Class 2-11 Anderso ROIDAL 00:00: n ANTI-INF 00 LAMMATOR Y DRUG) PROTAMIN DRUG Active MD E INGREDI 2-11 Anderso 00:00: n 00 QUINOLON Drug Active MD ES Class 2-11 Anderso 00:00: n 00 TETRACYC DRUG Active 0 MD LINE INGREDI 2-11 Anderso 00:00: n 00 TETRACYN DRUG Active 0 MD 2-11 Anderso 00:00: n 00 THIOPENT DRUG Active Other 2015- MD AL INGREDI 2-11 Anderso SODIUM 00:00: n 00 ERYTHROM DRUG Active Low Rash 2015-0 MD YCIN 2-11 Anderso 00:00: n 00 PREDNISO DRUG Active Low Anxiety 2015-0 MD NE INGREDI 2-11 Anderso 00:00: n 00 ADENOSIN DRUG Active 2015-0 MD E INGREDI 2-11 Anderso 00:00: n 00 CHLORDIA DRUG Active 2015-0 MD ZEPOXIDE INGREDI 2-11 Anderso 00:00: n 00 CLARITHR DRUG Active MD OMYCIN INGREDI 2-11 Anderso 00:00: n 00 CODEINE DRUG Active MD INGREDI 2-11 Anderso 00:00: n 00 DEXAMETH DRUG Active MD ASONE INGREDI 2-11 Anderso 00:00: n 00 GRISEOFU DRUG Active MD LVIN INGREDI 2-11 Anderso ULTRAMIC 00:00: n ROSIZE 00 IBUPROFE DRUG Active MD N INGREDI 2-11 Anderso 00:00: n 00 INDOMETH DRUG Active MD ACIN INGREDI 2-11 Anderso 00:00: n 00 LEVOFLOX DRUG Active MD ACIN INGREDI 2-11 Anderso 00:00: n 00 LINEZOLI DRUG Active MD D INGREDI 2-11 Anderso 00:00: n 00 METHADON DRUG Active Other MD E INGREDI 211 Anderso 00:00: n 00 METRONID DRUG Active MD AZOLE INGREDI 211 Anderso 00:00: n 00 FENOPROF DRUG Active MD EN INGREDI 2-11 Anderso 00:00: n 00 NAPROXEN DRUG Active MD INGREDI 2-11 Anderso 00:00: n 00 NEOMYCIN DRUG Active MD -DEXAMET 2-11 Anderso HASONE 00:00: n 00 NEOMYCIN DRUG Active MD -POLYMYX 2-11 Anderso IN 00:00: n B-DEXAME 00 TH NSAIDS Drug Active MD (NON-MICHEAL Class 2-11 Anderso ROIDAL 00:00: n ANTI-INF 00 LAMMATOR Y DRUG) PROTAMIN DRUG Active MD E INGREDI 2-11 Anderso 00:00: n 00 QUINOLON Drug Active MD ES Class 2-11 Anderso 00:00: n 00 TETRACYC DRUG Active MD LINE INGREDI 2-11 Anderso 00:00: n 00 TETRACYN DRUG Active 2015- MD 2-11 Anderso 00:00: n 00 THIOPENT DRUG Active Other MD AL INGREDI 2-11 Anderso SODIUM 00:00: n 00 ERYTHROM DRUG Active Low Rash MD YCIN 2-11 Anderso 00:00: n 00 PREDNISO DRUG Active Low Anxiety MD NE INGREDI 2-11 Anderso 00:00: n 00 ADENOSIN DRUG Active MD E INGREDI 2-11 Anderso 00:00: n 00 CHLORDIA DRUG Active MD ZEPOXIDE INGREDI 2-11 Anderso 00:00: n 00 CLARITHR DRUG Active MD OMYCIN INGREDI 2-11 Anderso 00:00: n 00 CODEINE DRUG Active MD INGREDI 2-11 Anderso 00:00: n 00 DEXAMETH DRUG Active MD ASONE INGREDI 2-11 Anderso 00:00: n 00 GRISEOFU DRUG Active MD LVIN INGREDI 2-11 Anderso ULTRAMIC 00:00: n ROSIZE 00 IBUPROFE DRUG Active MD N INGREDI 2-11 Anderso 00:00: n 00 INDOMETH DRUG Active MD ACIN INGREDI 2-11 Anderso 00:00: n 00 LEVOFLOX DRUG Active MD ACIN INGREDI 2-11 Anderso 00:00: n 00 LINEZOLI DRUG Active MD D INGREDI 2-11 Anderso 00:00: n 00 METHADON DRUG Active Other MD E INGREDI 2-11 Anderso 00:00: n 00 METRONID DRUG Active MD AZOLE INGREDI 2-11 Anderso 00:00: n 00 FENOPROF DRUG Active MD EN INGREDI 2-11 Anderso 00:00: n 00 NAPROXEN DRUG Active MD INGREDI 2-11 Anderso 00:00: n 00 NEOMYCIN DRUG Active MD -DEXAMET 2-11 Anderso HASONE 00:00: n 00 NEOMYCIN DRUG Active MD -POLYMYX 2-11 Anderso IN 00:00: n B-DEXAME 00 TH NSAIDS Drug Active MD (NON-MICHEAL Class 2-11 Anderso ROIDAL 00:00: n ANTI-INF 00 LAMMATOR Y DRUG) PROTAMIN DRUG Active MD E INGREDI 2-11 Anderso 00:00: n 00 QUINOLON Drug Active MD ES Class 2-11 Anderso 00:00: n 00 TETRACYC DRUG Active MD LINE INGREDI 2-11 Anderso 00:00: n 00 TETRACYN DRUG Active MD 2-11 Anderso 00:00: n 00 THIOPENT DRUG Active Other 2015- MD AL INGREDI 2-11 Anderso SODIUM 00:00: n 00 ERYTHROM DRUG Active Low Rash 2015- MD YCIN 2-11 Anderso 00:00: n 00 PREDNISO DRUG Active Low Anxiety 2015- MD NE INGREDI 2-11 Anderso 00:00: n 00 ADENOSIN DRUG Active MD E INGREDI 2-11 Anderso 00:00: n 00 CAFFEINE DRUG Active MD INGREDI 2-11 Anderso 00:00: n 00 CHLORDIA DRUG Active MD ZEPOXIDE INGREDI 2-11 Anderso 00:00: n 00 CLARITHR DRUG Active MD OMYCIN INGREDI 2-11 Anderso 00:00: n 00 CODEINE DRUG Active MD INGREDI 2-11 Anderso 00:00: n 00 DEXAMETH DRUG Active MD ASONE INGREDI 2-11 Anderso 00:00: n 00 GRISEOFU DRUG Active MD LVIN INGREDI 2-11 Anderso ULTRAMIC 00:00: n ROSIZE 00 IBUPROFE DRUG Active MD N INGREDI 2-11 Anderso 00:00: n 00 INDOMETH DRUG Active MD ACIN INGREDI 2-11 Anderso 00:00: n 00 LEVOFLOX DRUG Active MD ACIN INGREDI 2-11 Anderso 00:00: n 00 LINEZOLI DRUG Active MD D INGREDI 2-11 Anderso 00:00: n 00 METHADON DRUG Active Other 2015- MD E INGREDI 2-11 Anderso 00:00: n 00 METRONID DRUG Active MD AZOLE INGREDI 2-11 Anderso 00:00: n 00 FENOPROF DRUG Active MD EN INGREDI 2-11 Anderso 00:00: n 00 NAPROXEN DRUG Active MD INGREDI 2-11 Anderso 00:00: n 00 NEOMYCIN DRUG Active MD -DEXAMET 2-11 Anderso HASONE 00:00: n 00 NEOMYCIN DRUG Active MD -POLYMYX 2-11 Anderso IN 00:00: n B-DEXAME 00 TH NSAIDS Drug Active MD (NON-MICHEAL Class 2-11 Anderso ROIDAL 00:00: n ANTI-INF 00 LAMMATOR Y DRUG) PROTAMIN DRUG Active MD E INGREDI 2-11 Anderso 00:00: n 00 QUINOLON Drug Active MD ES Class 2-11 Anderso 00:00: n 00 TETRACYC DRUG Active MD LINE INGREDI 2-11 Anderso 00:00: n 00 TETRACYN DRUG Active MD 2-11 Anderso 00:00: n 00 THIOPENT DRUG Active Other MD AL INGREDI 2-11 Anderso SODIUM 00:00: n 00 ERYTHROM DRUG Active Low Rash MD YCIN 2-11 Anderso 00:00: n 00 PREDNISO DRUG Active Low Anxiety MD NE INGREDI 2-11 Anderso 00:00: n 00 ADENOSIN DRUG Active MD E INGREDI 2-11 Anderso 00:00: n 00 CHLORDIA DRUG Active MD ZEPOXIDE INGREDI 2-11 Anderso 00:00: n 00 CLARITHR DRUG Active MD OMYCIN INGREDI 2-11 Anderso 00:00: n 00 CODEINE DRUG Active MD INGREDI 2-11 Anderso 00:00: n 00 DEXAMETH DRUG Active MD ASONE INGREDI 2-11 Anderso 00:00: n 00 GRISEOFU DRUG Active MD LVIN INGREDI 2-11 Anderso ULTRAMIC 00:00: n ROSIZE 00 IBUPROFE DRUG Active MD N INGREDI 2-11 Anderso 00:00: n 00 INDOMETH DRUG Active MD ACIN INGREDI 2-11 Anderso 00:00: n 00 LEVOFLOX DRUG Active MD ACIN INGREDI 2-11 Anderso 00:00: n 00 LINEZOLI DRUG Active MD D INGREDI 2-11 Anderso 00:00: n 00 METHADON DRUG Active Other MD E INGREDI 2-11 Anderso 00:00: n 00 METRONID DRUG Active MD AZOLE INGREDI 2-11 Anderso 00:00: n 00 FENOPROF DRUG Active 2015- MD EN INGREDI 2-11 Anderso 00:00: n 00 NAPROXEN DRUG Active 2015- MD INGREDI 2-11 Anderso 00:00: n 00 NEOMYCIN DRUG Active MD -DEXAMET 2-11 Anderso HASONE 00:00: n 00 NEOMYCIN DRUG Active MD -POLYMYX 2-11 Anderso IN 00:00: n B-DEXAME 00 TH Codeine Propensi Active Unknown - 2014-04 Univ ers ty to See comments 1-06 ity of adverse 00:00: [place] reaction 00 [facility] s Branch ACHROMYC DRUG Active Unknown-Cmnt 2014-04 Un mark IN V 1-06 ity of 00:00: [place] 00 [facility] ADENOSIN DRUG Active Unknown-Cmnt 2014-04 Un mark E INGREDI 1-06 ity of 00:00: [place] 00 [facility] Erythrom Propensi Active Unknown - 2014-04 Uni vers ycin ty to See comments 1-06 ity of adverse 00:00: [place] reaction 00 Medical s Branch NAPROXEN DRUG Active Unknown-Cmnt 2014-04 Un mark SODIUM INGREDI 1-06 ity of 00:00: [place] 00 [facility] CLARITHR DRUG Active Unknown-Cmnt 2014-04 Un mark OMYCIN INGREDI 1-06 ity of 00:00: [place] 00 [facility] CAFFEINE DRUG Active Unknown-Cmnt 2014-04 Un mark INGREDI 1-06 ity of 00:00: [place] 00 [facility] CEFACLOR DRUG Active Unknown-Cmnt 2014-04 Un mark INGREDI 1-06 ity of 00:00: [place] 00 [facility] CEPHALEX DRUG Active Unknown-Cmnt 2014-04 Un mark IN HCL INGREDI 1-06 ity of 00:00: [place] 00 [facility] CEPHALOS Drug Active Unknown-Cmnt 2014-04 Un mark PORINS Class 1-06 ity of 00:00: [place] 00 [facility] CODEINE DRUG Active Unknown-Cmnt 2014-04 Uni vers INGREDI 1-06 ity of 00:00: [place] 00 [facility] ERYTHROM DRUG Active Unknown-Cmnt 2014-04 Un mark YCIN 1-06 ity of 00:00: [place] 00 [facility] METRONID DRUG Active Unknown-Cmnt 2014-04 Un mark AZOLE INGREDI 1-06 ity of HCL 00:00: [place] 00 [facility] FULVICIN DRUG Active Unknown-Cmnt 2014-04 Un mark P/G 1-06 ity of 00:00: [place] 00 [facility] Metronid Propensi Active Unknown - 2014-04 Uni vers azole ty to See comments 04-19 ity of Hcl adverse 00:00: [place] reaction 00 Medical s Branch IBUPROFE DRUG Active Unknown-Cmnt 2014-04 Un mark N INGREDI 1-06 ity of 00:00: [place] 00 [facility] INDOMETH DRUG Active Unknown-Cmnt 2014-04 Un mark ACIN INGREDI 1-06 ity of SODIUM 00:00: [place] 00 [facility] CEPHALEX DRUG Active Unknown-Cmnt 2014-04 Un mark IN INGREDI 1-06 ity of 00:00: [place] 00 [facility] NEOMYCIN DRUG Active Unknown-Cmnt 2014-04 Un mark -POLYMYX -06 ity of IN 00:00: [place] B-DEXAME 00 Medical TH Branch FENOPROF DRUG Active Unknown-Cmnt 2014-04 Un mark EN INGREDI 1-06 ity of CALCIUM 00:00: [place] 00 [facility] NAPROXEN DRUG Active Unknown-Cmnt 2014-04 Un mark INGREDI 1-06 ity of 00:00: [place] 00 [facility] NSAIDS Drug Active Unknown-Cmnt 2014-04 Univ ers (NON-MICHEAL Class 1-06 ity of ROIDAL 00:00: [place] ANTI-INF 00 Medical LAMMATOR Branch Y DRUG) THIOPENT DRUG Active Unknown-Cmnt 2014-04 Un mark AL INGREDI 1-06 ity of SODIUM 00:00: [place] 00 [facility] SULFAMET DRUG Active Unknown-Cmnt 2014-04 Un mark HOXAZOLE INGREDI 1-06 ity of 00:00: [place] 00 [facility] TETRACYC DRUG Active Unknown-Cmnt 2014-04 Un mark LINE HCL INGREDI 1-06 ity of 00:00: [place] 00 [facility] Fulvicin Propensi Active Unknown - 2014-04 Uni vers P/G ty to See comments 06 ity of adverse 00:00: [place] reaction 00 Medical s Branch TETRACYC Drug Active Unknown-Cmnt 2014-04 Un mark LIC Class 1-06 ity of ANTIDEPR 00:00: [place] ESSANTS 00 Medical Branch Indometh Propensi Active Unknown - 2014-04 Uni vers acin ty to See comments 04-19 ity of Sodium adverse 00:00: [place] reaction 00 Medical s Branch Cephalex Propensi Active Unknown - 2014-04 Uni vers in ty to See comments 04-19 ity of adverse 00:00: [place] reaction 00 Medical s Branch Neomycin Propensi Active Unknown - 2014-04 Uni vers -Polymyx ty to See comments 04-19 it y of in adverse 00:00: [place] B-Dexame reaction 00 Medica l th s Branch Ibuprofe Propensi Active Unknown - 2014-04 Motrin Pt Univers n ty to See comments 04-19 stated ity of adverse 00:00: that she [place] reaction 00 thinks it Medic al s made her Branch "[employer] stop working" Fenoprof Propensi Active Unknown - 2014-04 Uni vers en ty to See comments 04-19 ity of Calcium adverse 00:00: [place] reaction 00 Medical s Branch Naproxen Propensi Active Unknown - 2014-04 Uni vers ty to See comments 04-19 ity of adverse 00:00: [place] reaction 00 Medical s Branch Achromyc Propensi Active Unknown - 2014-04 Uni vers in V ty to See comments 04-19 ity of adverse 00:00: [place] reaction 00 Medical s Branch Nsaids Propensi Active Unknown - 2014-04 Unive rs (Non-Micheal ty to See comments 04-19 it y of roidal adverse 00:00: [place] Anti-Inf reaction 00 Medica l lammator s Branch y Drug) Thiopent Propensi Active Unknown - 2014-04 Uni vers al ty to See comments 04-19 ity of Sodium adverse 00:00: [place] reaction 00 Medical s Branch Sulfamet Propensi Active Unknown - 2014-04 Uni vers hoxazole ty to See comments 04-19 it y of adverse 00:00: [place] reaction 00 [facility] s Branch Tetracyc Propensi Active Unknown - 2014-04 Uni vers line Hcl ty to See comments 04-19 it y of adverse 00:00: [place] reaction 00 Medical s Branch Tetracyc Propensi Active Unknown - 2014-04 Uni vers lic ty to See comments 04-19 ity of Antidepr adverse 00:00: [place] essants reaction 00 Medical s Branch Adenosin Propensi Active Unknown - 2014-04 Uni vers e ty to See comments 04-19 ity of adverse 00:00: [place] reaction 00 Medical s Branch Naproxen Propensi Active Unknown - 2014-04 Uni vers Sodium ty to See comments 04-19 ity of adverse 00:00: [place] reaction 00 Medical s Branch Clarithr Propensi Active Unknown - 2014-04 Uni vers omycin ty to See comments 04-19 ity of adverse 00:00: [place] reaction Medical s Branch Caffeine Propensi Active Unknown - 2014-04 Uni vers ty to See comments 04-19 ity of adverse 00:00: [place] reaction 00 Medical s Branch Cefaclor Propensi Active Unknown - 2014-04 Uni vers ty to See comments 04-19 ity of adverse 00:00: [place] reaction 00 [facility] s Branch Cephalex Propensi Active - 2014-04 Uni vers in Hcl ty to See comments 04-19 ity of adverse 00:00: [place] reaction 00 Medical s Branch Cephalos Propensi Active Unknown 2014-04 Uni vers porins ty to See comments 04-19 ity of adverse 00:00: [place] reaction Medical s Branch ibuprofe ibuprofe Active Memori a n n l [place] tetracyc tetracyc Active Memori a line line l [place] erythrom erythrom Active Memori a ycin ycin l [place] cefaclor cefaclor Active Memori a l [place] amoxicil amoxicil Active Memori a rey rey l [place] cephalex cephalex Active Memori a in in l [place] roger coryithr Active Memori a omycin omycin l [place] omeprazo omeprazo Active Memori a le le l [place] magnesiu magnesiu Active Memori a m m l citrate citrate [place] nystatin nystatin Active Memori a l [place] caffeine caffeine Active Memori a l [place] Maxitrol Maxitrol Active Memori a l [place] Flagyl Flagyl Active Memoria l [place] Nalfon Nalfon Active Memoria l [place] Naprosyn Naprosyn Active Memori a l [place] Indocin Indocin Active Memoria l [place] pantopra pantopra Active Memori a zole zole l [place] NSAIDs NSAIDs Active Memoria l [place] cephalos cephalos Active Memori a porins porins l [place] codeine codeine Active Memoria l [place] Social History Social Habit Start Date Stop Date Quantity Comments Source Social History 2022-03-05 2022-03-05 Brian isaacs 15:51:11 15:51:11 Exposure to 2021-09-23 2021-10-03 Not sure [facility] SARS-CoV-2 (event) 00:00:00 07:56:00 Medica l Branch Alcohol intake 2021-09-12 2021-09-12 0 /d [facility] 00:00:00 00:00:00 Medical Branch Tobacco use and 2021-09-12 2021-09-12 Never used [facility] exposure 00:00:00 00:00:00 Medical Branch Smoking Status Start Date Stop Date Source Tobacco smoking status 2022-01-23 13:34:37 2022-01-23 13:34:37 [facility] [place] Medications Ordered Filled Start Stop Current Ordering Indication Dosage Frequency Signature Comments Components Source Medication Medication Date Date Medication? Clinician (SIG) Name Name Chanell 2021-04 Yes 20 mg = 1 M [facility]oria mg oral 0-12 cap, PO, l delayed 14:24: Daily, # Ryland n release 00 30 cap, 2 capsule Refill(s), Pharmacy: [id number], 160.02, cm, 01/23/22 8:38:00 CDT, Height, 54.091, kg, 01/23/22 8:38:00 CDT, Weight Chanell 2021-04 Yes 20 mg = 1 M emoria mg oral 0-12 cap, PO, l delayed 14:24: Daily, # Ryland n release 00 30 cap, 2 capsule Refill(s), Pharmacy: [id number], 160.02, cm, 01/23/22 8:38:00 CDT, Height, 54.091, kg, 01/23/22 8:38:00 CDT, Weight Chanell 2021-04 Yes 20 mg = 1 M emoria mg oral 0-12 cap, PO, l delayed 14:24: Daily, # Ryland n release 00 30 cap, 2 capsule Refill(s), Pharmacy: [id number], 160.02, cm, 01/23/22 8:38:00 CDT, Height, 54.091, kg, 01/23/22 8:38:00 CDT, Weight Chanell 20 2021-04 Yes 20 mg = 1 M emoria mg oral 0-12 cap, PO, l delayed 14:24: Daily, # Ryland n release 00 30 cap, 2 capsule Refill(s), Pharmacy: [id number], 160.02, cm, 01/23/22 8:38:00 CDT, Height, 54.091, kg, 01/23/22 8:38:00 CDT, Weight Vitamin D3 0 Yes 0 Memoria 8-31 Refill(s) l 22:27: [place] lutein 2021-0 Yes PO, Daily, Memor ia 8-31 0 l 22:27: Refill(s) Vitamin D3 0 Yes 0 Memoria 8-31 Refill(s) l 22:27: [place] lutein 2021-0 Yes PO, Daily, Memor ia 8-31 0 l 22:27: Refill(s) Vitamin D3 0 Yes 0 Memoria 8-31 Refill(s) l 22:27: [place] lutein 2021-0 Yes PO, Daily, Memor ia 8-31 0 l 22:27: Refill(s) Vitamin D3 0 Yes 0 Memoria 8-31 Refill(s) l 22:27: [place] lutein 2021-0 Yes PO, Daily, Memor ia 8-31 0 l 22:27: Refill(s) Spiriva 2021-0 Yes 18 Memoria 8-31 microgram, l 22:26: INHALATION [place] 00 , Daily, # 30 ea, 0 Refill(s) Spiriva 0 Yes 18 Memoria 8-31 microgram, l 22:26: INHALATION [place] 00 , Daily, # 30 ea, 0 Refill(s) Spiriva 2021-0 Yes 18 Memoria 8-31 microgram, l 22:26: INHALATION [place] 00 , Daily, # 30 ea, 0 Refill(s) Spiriva 2021-0 Yes 18 Memoria 8-31 microgram, l 22:26: INHALATION [place] 00 , Daily, # 30 ea, 0 Refill(s) albuterol-i 2022-0 Yes 3 mL, NEB, Memoria pratropium 8-31 QID, 0 l 2.5-0.5 mg 22:25: Refill(s) [place] r[place] inhalation 00 solution metoprolol 2021-0 Yes 25 mg = 1 Me moria succinate 8-31 cap, PO, l 25 mg oral 22:25: Daily, 0 Her westfall capsule, 00 Refill(s) extended release albuterol-i 2021-0 Yes 3 mL, NEB, Memoria pratropium 8-31 QID, 0 l 2.5-0.5 mg 22:25: Refill(s) [place] r[place] inhalation 00 solution metoprolol 2021-0 Yes 25 mg = 1 Me moria succinate 8-31 cap, PO, l 25 mg oral 22:25: Daily, 0 Her [place] capsule, 00 Refill(s) extended release albuterol-i 2021-0 Yes 3 mL, NEB, Memoria pratropium 8-31 QID, 0 l 2.5-0.5 mg 22:25: Refill(s) He rmann inhalation 00 solution metoprolol 2021-0 Yes 25 mg = 1 Me moria succinate 8-31 cap, PO, l 25 mg oral 22:25: Daily, 0 Her [place] capsule, 00 Refill(s) extended release albuterol-i 2021-0 Yes 3 mL, NEB, Memoria pratropium 8-31 QID, 0 l 2.5-0.5 mg 22:25: Refill(s) [place] r[place] inhalation 00 solution metoprolol 2021-0 Yes 25 mg = 1 Me moria succinate 8-31 cap, PO, l 25 mg oral 22:25: Daily, 0 Her [place] capsule, 00 Refill(s) extended release metoprolol 2021-0 Yes BID, 0 Memor ia tartrate 8-30 Refill(s) l 19:34: [place] 00 citric 2021-0 Yes 2 tab, PO, Memor ia acid/potass 8-30 Q4H, 0 l ium 19:34: Refill(s) [place] bicarbonate 00 /Na bicarb 1000 mg-344 mg-1050 mg oral tablet, effervescen t potassium 0 Yes 0 Memoria chloride 8-30 Refill(s) l 19:34: [place] 00 Spiriva 0 Yes 18 Memoria 8-30 microgram, l 19:34: INHALATION [place] 00 , Daily, # 30 ea, 0 Refill(s) metoprolol 2021-0 Yes BID, 0 Memor ia tartrate 8-30 Refill(s) l 19:34: [place] citric 0 Yes 2 tab, PO, Memor ia acid/potass 8-30 Q4H, 0 l ium 19:34: Refill(s) [place] bicarbonate 00 /Na bicarb 1000 mg-344 mg-1050 mg oral tablet, effervescen t potassium 0 Yes 0 Memoria chloride 8-30 Refill(s) l 19:34: [place] 00 Spiriva 0 Yes 18 Memoria 8-30 microgram, l 19:34: INHALATION [place] 00 , Daily, # 30 ea, 0 Refill(s) metoprolol 2021-0 Yes BID, 0 [facility] ia tartrate 8-30 Refill(s) l 19:34: [place] citric 0 Yes 2 tab, PO, Memor ia acid/potass 8-30 Q4H, 0 l ium 19:34: Refill(s) [place] bicarbonate 00 /Na bicarb 1000 mg-344 mg-1050 mg oral tablet, effervescen t potassium 0 Yes 0 [facility] chloride 8-30 Refill(s) l 19:34: [place] 00 Spiriva 0 Yes 18 Memoria 8-30 microgram, l 19:34: INHALATION [place] 00 , Daily, # 30 ea, 0 Refill(s) metoprolol 2021-0 Yes BID, 0 Memor ia tartrate 8-30 Refill(s) l 19:34: [place] 00 citric 2021-0 Yes 2 tab, PO, Mem[facility] ia acid/potass 8-30 Q4H, 0 l ium 19:34: Refill(s) [place] bicarbonate 00 /Na bicarb 1000 mg-344 mg-1050 mg oral tablet, effervescen t potassium 0 Yes 0 [facility] chloride 8-30 Refill(s) l 19:34: [place] 00 Spiriva 2021-0 Yes 18 [facility] 8-30 microgram, l 19:34: INHALATION [place] 00 , Daily, # 30 ea, 0 Refill(s) levothyroxi 2021-0 Yes 88 Memori a ne 88 mcg 8-30 microgram l (0.088 mg) 19:33: = 1 tab, [facility] [place] oral tablet 00 PO, Daily, 0 Refill(s) Advair 2021-0 Yes INHALATION Memor ia Diskus 250 8-30 , BID, 0 l mcg-50 mcg 19:33: Refill(s) [place] [facility] inhalation 00 powder levothyroxi 2021-0 Yes 88 Memori a ne 88 mcg 8-30 microgram l (0.088 mg) 19:33: = 1 tab, Her [place] oral tablet 00 PO, Daily, 0 Refill(s) Advair 2021-0 Yes INHALATION [facility] Diskus 250 8-30 , BID, 0 l mcg-50 mcg 19:33: Refill(s) [facility] inhalation 00 powder levothyroxi 2021-0 Yes 88 Mem[facility] a ne 88 mcg 8-30 microgram l (0.088 mg) 19:33: = 1 tab, [facility] [place] oral tablet 00 PO, Daily, 0 Refill(s) Advair 2021-0 Yes INHALATION [facility] Diskus 250 8-30 , BID, 0 l mcg-50 mcg 19:33: Refill(s) [place] inhalation 00 powder levothyroxi 2021-0 Yes 88 Memori a ne 88 mcg 8-30 microgram l (0.088 mg) 19:33: = 1 tab, [facility] [place] oral tablet 00 PO, Daily, 0 Refill(s) Advair 2021-0 Yes INHALATION [facility] Diskus 250 8-30 , BID, 0 l mcg-50 mcg 19:33: Refill(s) [place] inhalation 00 powder Dose 2021-0 No Unknown 8-12 00:00: 00 Dose 2021-0 No Unknown - 00:00: 00 Advair 2021-0 No 1mcg/do Diskus 250 6-22 se mcg-50 00:00: mcg/dose 00 powder for inhalation Lasix 40 mg 2021-0 No 1mg tablet 6- 00:00: 00 metoprolol 2021-0 No 1mg succinate 6- ER 25 mg 00:00: tablet,exte 00 nded release 24 hr levothyroxi 2022-0 No 1mcg ne 88 mcg 6-22 tablet 00:00: 00 potassium 0 No 1mEq chloride ER 622 10 mEq 00:00: tablet,exte 00 nded release Spiriva No 1mcg with 10-03 HandiHaler 00:00: 18 mcg and 00 inhalation capsules sodium 0 No 1% chloride 7 6-22 % for 00:00: nebulizatio 00 n albuterol 0 No 3/3 mL sulfate 2.5 6-22 (0.083 mg/3 mL 00:00: %) (0.083 %) 00 solution for nebulizatio n levalbutero No 3mg/3 l 1.25 mg/3 6-22 mL mL solution 00:00: for 00 nebulizatio n &lt 2021-0 No 6-22 00:00: 00 &lt 2021-0 No 6-15 00:00: 00 &lt 2021-0 No 6-15 00:00: 00 pantoprazol Yes Take by Uni vers e sodium 6-01 mouth. ity of (PROTONIX 14:38: [place] ORAL) [facility] pantoprazol Yes Take by Uni vers e sodium 6-01 mouth. ity of (PROTONIX 14:38: [place] ORAL) [facility] pantoprazol Yes Take by Uni vers e sodium 6-01 mouth. ity of (PROTONIX 14:38: [place] ORAL) [facility] ADVAIR Yes Univers DISKUS 5-24 ity of 250-50 00:00: [place] mcg/dose 00 Medical inhalation Branch disk ADVAIR Yes [facility] DISKUS 5-24 ity of 250-50 00:00: [place] mcg/dose 00 Medical inhalation Branch disk ADVAIR Yes Univers DISKUS 5-24 ity of 250-50 00:00: [place] mcg/dose 00 Medical inhalation Branch disk Advair No 1mcg/do Diskus 250 3-23 se mcg-50 00:00: mcg/dose 00 powder for inhalation Lasix 40 mg 0 No 1mg tablet 3-23 00:00: 00 metoprolol 0 No 1mg succinate 3-23 ER 25 mg 00:00: tablet,exte 00 nded release 24 hr potassium 2-0 No 1mEq chloride ER 3-23 10 mEq 00:00: tablet,exte 00 nded release levothyroxi 2-0 No 1mcg ne 88 mcg 3-23 tablet 00:00: 00 gabapentin 2-0 No 1mg 100 mg 3-23 capsule 00:00: 00 Spiriva 2-0 No 1mcg with 3-23 HandiHaler 00:00: 18 mcg and 00 inhalation capsules sodium 2021-0 No 1% chloride 7 3-23 % for 00:00: nebulizatio 00 n albuterol 2021-0 No 3/3 mL sulfate 2.5 3-23 (0.083 mg/3 mL 00:00: %) (0.083 %) 00 solution for nebulizatio n levothyroxi 2021-0 No 1mcg ne 88 mcg 3-19 tablet 00:00: 00 Lasix 40 mg 2021-0 No 1mg tablet 3-18 00:00: 00 metoprolol 2-0 No 1mg succinate 3-18 ER 25 mg 00:00: tablet,exte 00 nded release 24 hr potassium 2021-0 No 1mEq chloride ER 3-18 10 mEq 00:00: tablet,exte 00 nded release Dose 2021-0 No Unknown 3-16 00:00: 00 Dose 2-0 No Unknown 3-16 00:00: 00 Dose 2-0 No Unknown 3-16 00:00: 00 Dose 2-0 No Unknown 3-16 00:00: 00 Dose 2022-0 No Unknown 3-16 00:00: 00 Dose 2-0 No Unknown 3-16 00:00: 00 Dose 2-0 No Unknown 3-16 00:00: 00 Dose 2-0 No Unknown 3-16 00:00: 00 Dose 2-0 No Unknown 3-16 00:00: 00 Dose 2-0 No Unknown 3-16 00:00: 00 Dose 2-0 No Unknown 3-16 00:00: 00 Dose 2-0 No Unknown 3-16 00:00: 00 Dose 2022-0 No Unknown 3-16 00:00: 00 Dose 2022-0 No Unknown 3-16 00:00: 00 Dose 2022-0 No Unknown 3-16 00:00: 00 Dose 2022-0 No Unknown 3-16 00:00: 00 Dose 2022-0 No Unknown 3-16 00:00: 00 Dose 2022-0 No Unknown 3-16 00:00: 00 Dose 2022-0 No Unknown 3-16 00:00: 00 Dose 2022-0 No Unknown 3-16 00:00: 00 Dose 2022-0 No Unknown 3-16 00:00: 00 Dose 2022-0 No Unknown 3-16 00:00: 00 Dose 2022-0 No Unknown 3-16 00:00: 00 Dose 2022-0 No Unknown 3-16 00:00: 00 Dose 2022-0 No Unknown 3-16 00:00: 00 Dose 2022-0 No Unknown 3-16 00:00: 00 Dose 2022-0 No Unknown 3-16 00:00: 00 Dose 2022-0 No Unknown 3-16 00:00: 00 Dose 2022-0 No Unknown 3-16 00:00: 00 Dose 2022-0 No Unknown 3-16 00:00: 00 Dose 2022-0 No Unknown 3-16 00:00: 00 Dose 2022-0 No Unknown 3-16 00:00: 00 Dose 2022-0 No Unknown 3-16 00:00: 00 Dose 2022-0 No Unknown 3-16 00:00: 00 Dose 2022-0 No Unknown 3-16 00:00: 00 Dose 2022-0 No Unknown 3-16 00:00: 00 Dose 2022-0 No Unknown 3-16 00:00: 00 Dose 2022-0 No Unknown 3-16 00:00: 00 Dose 2022-0 No Unknown 3-16 00:00: 00 Dose 2022-0 No Unknown 3-16 00:00: 00 Dose 2022-0 No Unknown 3-16 00:00: 00 Dose 2022-0 No Unknown 3-16 00:00: 00 Dose 2022-0 No Unknown 3-16 00:00: 00 Dose 2022-0 No Unknown 3-16 00:00: 00 Dose 2022-0 No Unknown 3-16 00:00: 00 Dose 2022-0 No Unknown 3-16 00:00: 00 Dose 2022-0 No Unknown 3-16 00:00: 00 Dose 2022-0 No Unknown 3-16 00:00: 00 Dose 2022-0 No Unknown 3-16 00:00: 00 Dose 2022-0 No Unknown 3-16 00:00: 00 Dose 2022-0 No Unknown 3-16 00:00: 00 Dose 2022-0 No Unknown 3-16 00:00: 00 Dose 2022-0 No Unknown 3-16 00:00: 00 Dose 2022-0 No Unknown 3-16 00:00: 00 Dose 2022-0 No Unknown 3-16 00:00: 00 Dose 2022-0 No Unknown 3-16 00:00: 00 Dose 2022-0 No Unknown 3-16 00:00: 00 Dose 2022-0 No Unknown 3-16 00:00: 00 Dose 2022-0 No Unknown 3-16 00:00: 00 Dose 2022-0 No Unknown 3-16 00:00: 00 Dose 2022-0 No Unknown 3-16 00:00: 00 Dose 2022-0 No Unknown 3-16 00:00: 00 Dose 2022-0 No Unknown 3-16 00:00: 00 Dose 2022-0 No Unknown 3-16 00:00: 00 Dose 2022-0 No Unknown 3-16 00:00: 00 Dose 2022-0 No Unknown 3-16 00:00: 00 Dose 2022-0 No Unknown 3-16 00:00: 00 Dose 2022-0 No Unknown 3-16 00:00: 00 Dose 2022-0 No Unknown 3-16 00:00: 00 Dose 2022-0 No Unknown 3-16 00:00: 00 Dose 2022-0 No Unknown 3-16 00:00: 00 Dose 2022-0 No Unknown 3-16 00:00: 00 Dose 2022-0 No Unknown 3-16 00:00: 00 Dose 2022-0 No Unknown 3-16 00:00: 00 Dose 2022-0 No Unknown 3-16 00:00: 00 Dose 2022-0 No Unknown 3-16 00:00: 00 Dose 2022-0 No Unknown 3-16 00:00: 00 Dose 2022-0 No Unknown 3-16 00:00: 00 Dose 2022-0 No Unknown 3-16 00:00: 00 Dose 2022-0 No Unknown 3-16 00:00: 00 Dose 2022-0 No Unknown 3-16 00:00: 00 Dose 2022-0 No Unknown 3-16 00:00: 00 Dose 2-0 No Unknown 3-16 00:00: 00 Dose 2-0 No Unknown 3-16 00:00: 00 Dose 2-0 No Unknown 3-16 00:00: 00 Dose 2-0 No Unknown 3-16 00:00: 00 Dose 2-0 No Unknown 3-16 00:00: 00 Dose 2-0 No Unknown 3-16 00:00: 00 Dose 2-0 No Unknown 3-16 00:00: 00 Dose 2-0 No Unknown 3-16 00:00: 00 Dose 2-0 No Unknown 3-16 00:00: 00 Dose 2-0 No Unknown 3-16 00:00: 00 Dose 2-0 No Unknown 3-16 00:00: 00 Dose 2-0 No Unknown 3-16 00:00: 00 Dose 2-0 No Unknown 3-16 00:00: 00 Dose 2-0 No Unknown 3-16 00:00: 00 Dose 2-0 No Unknown 3-16 00:00: 00 Dose 2-0 No Unknown 3-16 00:00: 00 Advair 2021-0 No 1mcg/do Diskus 250 2-22 se mcg-50 00:00: mcg/dose 00 powder for inhalation Dose 2021-0 No Unknown 2-22 00:00: 00 Dose 2021-0 No Unknown 2-22 00:00: 00 gabapentin 2-0 No 1mg 100 mg 2-22 capsule 00:00: 00 Spiriva 2021-0 No 1mcg with 2-22 HandiHaler 00:00: 18 mcg and 00 inhalation capsules sodium 2021-0 No 1% chloride 7 2-22 % for 00:00: nebulizatio 00 n albuterol 2021-0 No 3/3 mL sulfate 2.5 2-22 (0.083 mg/3 mL 00:00: %) (0.083 %) 00 solution for nebulizatio n amoxicillin 2020-04 No 1mg 500 mg 1-22 capsule 00:00: 00 Dose 2020-1 No Unknown 1-18 00:00: 00 Dose 2020-1 No Unknown 1-18 00:00: 00 Dose 2020- No Unknown 1-18 00:00: 00 Dose 2020- No Unknown 1-18 00:00: 00 Dose 2020- No Unknown 1-18 00:00: 00 Dose 2020- No Unknown 1-18 00:00: 00 Dose 2020- No Unknown 1-18 00:00: 00 Advair 2020-04 No 1mcg/do Diskus 250 1-17 se mcg-50 00:00: mcg/dose 00 powder for inhalation potassium 2020-04 No 1mEq chloride ER 1-17 10 mEq 00:00: tablet,exte 00 nded release levothyroxi 2020-04 No 1mcg ne 100 mcg 1-17 tablet 00:00: 00 gabapentin 2020-04 No 1mg 100 mg 1-17 capsule 00:00: 00 Spiriva 2020-04 No 1mcg with 1-17 HandiHaler 00:00: 18 mcg and 00 inhalation capsules sodium 2020-04 No 1% chloride 7 1-17 % for 00:00: nebulizatio 00 n sodium 2020-04 No 1% chloride 7 1-17 % for 00:00: nebulizatio 00 n albuterol 2020-04 No 3/3 mL sulfate 2.5 1-17 (0.083 mg/3 mL 00:00: %) (0.083 %) 00 solution for nebulizatio n Dose 0 No Unknown 5-26 00:00: 00 Advair 0 No 1mcg/do Diskus 250 5-26 se mcg-50 00:00: mcg/dose 00 powder for inhalation Dose 0 No Unknown 5-26 00:00: 00 potassium 2020-0 No 1mEq chloride ER 5-26 10 mEq 00:00: tablet,exte 00 nded release levothyroxi 0 No 1mcg ne 100 mcg 5-26 tablet 00:00: 00 gabapentin 2020-0 No 1mg 100 mg 5-26 capsule 00:00: 00 Spiriva 2020-0 No 1mcg with 5-26 HandiHaler 00:00: 18 mcg and 00 inhalation capsules sodium 2020-0 No 1% chloride 7 5-26 % for 00:00: nebulizatio 00 n levalbutero 0 No 3mg/3 l 1.25 mg/3 5-26 mL mL solution 00:00: for 00 nebulizatio n albuterol 2020-0 No 3/3 mL sulfate 2.5 5-26 (0.083 mg/3 mL 00:00: %) (0.083 %) 00 solution for nebulizatio n Lasix 40 mg 2020-0 No 1mg tablet 08-08 00:00: 00 tramadol 50 2020-0 No 1mg mg tablet 08-08 00:00: 00 potassium 2020-0 No 1mEq chloride ER 08-08 10 mEq 00:00: tablet,exte 00 nded release ProAir HFA 2020-0 No 1mcg/ac 90 3-31 tuation mcg/actuati 00:00: on aerosol 00 inhaler Advair 2020-0 No 1mcg/do Diskus 250 -31 se mcg-50 00:00: mcg/dose 00 powder for inhalation posaconazol 2020-0 No 3mg e 100 mg - tablet,boyd 00:00: yed release 00 metoprolol 2020-0 No 1mg succinate 3-31 ER 25 mg 00:00: tablet,exte 00 nded release 24 hr levothyroxi 2020-0 No 1mcg ne 100 mcg -31 tablet 00:00: 00 gabapentin 2020-0 No 1mg 100 mg 3-31 capsule 00:00: 00 Spiriva 2020-0 No 1mcg with 3-31 HandiHaler 00:00: 18 mcg and 00 inhalation capsules sodium 2020-0 No 1% chloride 7 3-31 % for 00:00: nebulizatio 00 n albuterol 2020-0 No 3/3 mL sulfate 2.5 3-31 (0.083 mg/3 mL 00:00: %) (0.083 %) 00 solution for nebulizatio n levalbutero 2020-0 No 3mg/3 l 1.25 mg/3 3-31 mL mL solution 00:00: for 00 nebulizatio n albuterol 2020-0 No 1/3 mL sulfate 2.5 1-26 (0.083 mg/3 mL 00:00: %) (0.083 %) 00 solution for nebulizatio n Alphagan P 2020-1 No 1% 0.1 % eye 2-01 drops 00:00: 00 ProAir HFA 2020-1 No 1mcg/ac 90 2-01 tuation mcg/actuati 00:00: on aerosol 00 inhaler Advair 2020-1 No 1mcg/do Diskus 250 2-01 se mcg-50 00:00: mcg/dose 00 powder for inhalation metoprolol 2020-1 No 1mg succinate 2-01 ER 25 mg 00:00: tablet,exte 00 nded release 24 hr levothyroxi 2020-1 No 1mcg ne 100 mcg 2-01 tablet 00:00: 00 gabapentin 2020-1 No 1mg 100 mg 2-01 capsule 00:00: 00 Spiriva 2020-1 No 1mcg with 2-01 HandiHaler 00:00: 18 mcg and 00 inhalation capsules sodium 2019-1 No 1% chloride 7 2-01 % for 00:00: nebulizatio 00 n albuterol 2020-1 No 1/3 mL sulfate 2.5 2-01 (0.083 mg/3 mL 00:00: %) (0.083 %) 00 solution for nebulizatio n levalbutero 2020-1 No 1mg/3 l 1.25 mg/3 2-01 mL mL solution 00:00: for 00 nebulizatio n Alphagan P 2020-0 No 1% 0.1 % eye 9-08 drops 00:00: 00 ProAir HFA 2020-0 No 1mcg/ac 90 9-08 tuation mcg/actuati 00:00: on aerosol 00 inhaler Advair 2020-0 No 1mcg/do Diskus 250 9-08 se mcg-50 00:00: mcg/dose 00 powder for inhalation metoprolol 2020-0 No 1mg succinate 9-08 ER 25 mg 00:00: tablet,exte 00 nded release 24 hr levothyroxi 2020-0 No 1mcg ne 100 mcg 9-08 tablet 00:00: 00 gabapentin 2020-0 No 1mg 100 mg 9-08 capsule 00:00: 00 Spiriva 2020-0 No 1mcg with 9-08 HandiHaler 00:00: 18 mcg and 00 inhalation capsules sodium 2020-0 No 1% chloride 7 9-08 % for 00:00: nebulizatio 00 n albuterol 2020-0 No 1/3 mL sulfate 2.5 9-08 (0.083 mg/3 mL 00:00: %) (0.083 %) 00 solution for nebulizatio n levalbutero 2020-0 No 1mg/3 l 1.25 mg/3 9-08 mL mL solution 00:00: for 00 nebulizatio n Alphagan P 2020-0 No 1% 0.1 % eye 6-17 drops 00:00: 00 ProAir HFA 2020-0 No 1mcg/ac 90 6-17 tuation mcg/actuati 00:00: on aerosol 00 inhaler Advair 2020-0 No 1mcg/do Diskus 250 6-17 se mcg-50 00:00: mcg/dose 00 powder for inhalation metoprolol 2020-0 No 1mg succinate 6-17 ER 25 mg 00:00: tablet,exte 00 nded release 24 hr levothyroxi 2020-0 No 1mcg ne 100 mcg 6-17 tablet 00:00: 00 gabapentin 2020-0 No 1mg 100 mg 6-17 capsule 00:00: 00 Spiriva 2020-0 No 1mcg with 6-17 HandiHaler 00:00: 18 mcg and 00 inhalation capsules sodium 2020-0 No 1% chloride 7 6-17 % for 00:00: nebulizatio 00 n albuterol 2020-0 No 1/3 mL sulfate 2.5 6-17 (0.083 mg/3 mL 00:00: %) (0.083 %) 00 solution for nebulizatio n levalbutero 2020-0 No 1mg/3 l 1.25 mg/3 6-17 mL mL solution 00:00: for 00 nebulizatio n Alphagan P 2020-0 No 1% 0.1 % eye 4-30 drops 00:00: 00 ProAir HFA 2020-0 No 1mcg/ac 90 4-30 tuation mcg/actuati 00:00: on aerosol 00 inhaler Advair 2020-0 No 1mcg/do Diskus 250 4-30 se mcg-50 00:00: mcg/dose 00 powder for inhalation metoprolol 2020-0 No 1mg succinate 4-30 ER 25 mg 00:00: tablet,exte 00 nded release 24 hr levothyroxi 2020-0 No 1mcg ne 100 mcg 4-30 tablet 00:00: 00 gabapentin 2020-0 No 1mg 100 mg 4-30 capsule 00:00: 00 Spiriva 2020-0 No 1mcg with 4-30 HandiHaler 00:00: 18 mcg and 00 inhalation capsules sodium 2020-0 No 1% chloride 7 4-30 % for 00:00: nebulizatio 00 n albuterol 2020-0 No 1/3 mL sulfate 2.5 4-30 (0.083 mg/3 mL 00:00: %) (0.083 %) 00 solution for nebulizatio n Advair 2020-0 No 1mcg/do Diskus 250 2-24 se mcg-50 00:00: mcg/dose 00 powder for inhalation Advair 2020-0 No 1mcg/do Diskus 250 2-24 se mcg-50 00:00: mcg/dose 00 powder for inhalation sodium 2020-0 No 1% chloride 7 2-24 % for 00:00: nebulizatio 00 n sodium 2020-0 No 1% chloride 7 2-24 % for 00:00: nebulizatio 00 n albuterol 2020-0 No 1/3 mL sulfate 2.5 2-24 (0.083 mg/3 mL 00:00: %) (0.083 %) 00 solution for nebulizatio n albuterol 2020-0 No 1/3 mL sulfate 2.5 2-24 (0.083 mg/3 mL 00:00: %) (0.083 %) 00 solution for nebulizatio n albuterol 2020-0 No 1mg/3 sulfate 2-24 mL 0.63 mg/3 00:00: mL solution 00 for nebulizatio n albuterol 2020-0 No 1mg/3 sulfate 2-24 mL 0.63 mg/3 00:00: mL solution 00 for nebulizatio n Advair 2020-0 No 1mcg/do Diskus 250 2-06 se mcg-50 00:00: mcg/dose 00 powder for inhalation metoprolol 2020-0 No 1mg succinate 2-06 ER 25 mg 00:00: tablet,exte 00 nded release 24 hr levothyroxi 2020-0 No 1mcg ne 100 mcg 2-06 tablet 00:00: 00 gabapentin 2020-0 No 1mg 100 mg 2-06 capsule 00:00: 00 Spiriva 2020-0 No 1mcg with 2-06 HandiHaler 00:00: 18 mcg and 00 inhalation capsules Spiriva 2020-0 No 1mcg with 2-06 HandiHaler 00:00: 18 mcg and 00 inhalation capsules albuterol 2020-0 No 1/3 mL sulfate 2.5 2-06 (0.083 mg/3 mL 00:00: %) (0.083 %) 00 solution for nebulizatio n levalbutero 2020-0 No 1mg/3 l 1.25 mg/3 2-06 mL mL solution 00:00: for 00 nebulizatio n Spiriva 2020-0 No 1mcg with 1-09 HandiHaler 00:00: 18 mcg and 00 inhalation capsules albuterol 2020-0 No 1/3 mL sulfate 2.5 1-09 (0.083 mg/3 mL 00:00: %) (0.083 %) 00 solution for nebulizatio n cefpodoxime 2019-0 No 1mg 200 mg - tablet 00:00: 00 Advair 2019-0 No 1mcg/do Diskus 250 04-22 se mcg-50 00:00: mcg/dose 00 powder for inhalation metoprolol 2019-0 No 1mg succinate 04-22 ER 25 mg 00:00: tablet,exte 00 nded release 24 hr levothyroxi 2019-0 No 1mcg ne 100 mcg - tablet 00:00: 00 Nitrofurant 2019-0 Yes [id number] 100mg Take 1 Univers oin&Nit. 5-07 capsule by ity o [place] 00:[place] ([place]CR[place] (two) Medical 100 mg times Branch capsule daily. Nitrofurant 2018- Yes [id number] 100mg Take 1 Univers oin&Nit. 5-07 capsule by ity o f [place] 00:[place]: [place] (MACROBID[place] 00 (two) Medical 100 mg times Branch capsule daily. Nitrofurant 2018- Yes [id number] 100mg Take 1 Univers oin&Nit. 5-07 capsule by ity o f [place] 00:[place]: [place] 2 [place] (MACROBID[place] 00 (two) Medical 100 mg times Branch capsule daily. methylPREDN 2014-04 Yes 84mg Take 21 Uni vers ISolone 1-06 Tabs by ity of (MEDROL, 00:00: mouth [place] CORY,) 4 mg 00 SEE-INSTRU Med ical tablets CTIONS. Branch follow package directions methylPREDN 2014-04 Yes 84mg Take 21 Uni vers ISolone 1-06 Tabs by ity of (MEDROL, 00:00: mouth [place] CORY,) 4 mg 00 SEE-INSTRU Med ical tablets CTIONS. Branch follow package directions methylPREDN 2014-04 Yes 84mg Take 21 Uni vers ISolone 1-06 Tabs by ity of (MEDROL, 00:00: mouth [place] CORY,) 4 mg 00 SEE-INSTRU Med ical tablets CTIONS. Branch follow package directions metoprolol 2014-04 Yes Univers succinate 0-19 ity of XL (TOPROL 00:00: [place] XL) 25 mg 00 Medical 24 hr Branch tablet metoprolol 2014-04 Yes Univers succinate 0-19 ity of XL (TOPROL 00:00: [place] XL) 25 mg 00 Medical 24 hr Branch tablet metoprolol 2014-04 Yes Univers succinate 0-19 ity of XL (TOPROL 00:00: [place] XL) 25 mg 00 Medical 24 hr Branch tablet levothyroxi 2014-04 Yes Univer s ne 0-05 ity of (SYNTHROID) 00:00: [place] 100 mcg 00 Medical tablet Branch levothyroxi 2014-04 Yes Univer s ne 0-05 ity of (SYNTHROID) 00:00: [place] 100 mcg 00 Medical tablet Branch levothyroxi 2014-04 Yes Univer s ne 0-05 ity of (SYNTHROID) 00:00: [place] 100 mcg 00 Medical tablet Branch levalbutero Yes Univer s l (XOPENEX) 9-11 ity of 0.63 mg/3 00:00: [place] mL 00 Medical nebulizer Branch solution levalbutero Yes Univer s l (XOPENEX) 9-11 ity of 0.63 mg/3 00:00: [place] mL 00 Medical nebulizer Branch solution levalbutero Yes Univer s l (XOPENEX) 9-11 ity of 0.63 mg/3 00:00: [place] mL 00 Medical nebulizer Branch solution albuterol Yes Univers (ACCUNEB) 8-25 ity of 0.63 mg/3 00:00: [place] mL 00 Medical nebulizer Branch solution ipratropium Yes Univer s (ATROVENT) 8-25 ity of 0.02 % 00:00: [place] nebulizer 00 Medical solution Branch albuterol Yes Univers (ACCUNEB) 8-25 ity of 0.63 mg/3 00:00: [place] mL 00 Medical nebulizer Branch solution ipratropium Yes Univer s (ATROVENT) 8-25 ity of 0.02 % 00:00: [place] nebulizer 00 Medical solution Branch albuterol Yes Univers (ACCUNEB) 8-25 ity of 0.63 mg/3 00:00: [place] mL 00 Medical nebulizer Branch solution ipratropium Yes Univer s (ATROVENT) 8-25 ity of 0.02 % 00:00: [place] nebulizer 00 Medical solution Branch Immunizations Ordered Immunization Name Filled Immunization Name Date Status Comments Source Pneumococcal conjugate P Unknown Completed Vital Signs Vital Name Observation Time Observation Value Comments Source Systolic blood 2021-09-12 19:34:00 115 mm[Hg] [facility] Diastolic blood 2021-09-12 19:34:00 70 mm[Hg] [facility] Heart rate 2021-09-12 19:34:00 89 /min [facility] Respiratory rate 2021-09-12 19:34:00 16 /min [facility] Body height 2021-09-12 19:34:00 157.5 cm [facility] Body weight 2021-09-12 19:34:00 56.246 kg [facility] BMI 2021-09-12 19:34:00 22.68 kg/m2 [facility] Oxygen saturation in 2021-09-12 19:34:00 99 /min [facility] Arterial blood by [facility] Pulse oximetry Branch HEIGHT 2020-06-14 13:01:08 159 cm WEIGHT 2020-06-14 13:01:08 57.8 kg WEIGHT 2020-05-23 13:15:00 57.9 kg Systolic (mm Hg) 2022-01-23 13:34:00 Heliowillie cohenl [place] Diastolic (mm Hg) 2022-01-23 13:34:00 Mem [facility] [place] Heart Rate 2022-01-23 13:34:00 [facility] [place] Height 2022-01-23 13:34:00 5 [ft_i] [facility] [place] Weight 2022-01-23 13:34:00 [facility] [place] BMI Calculated 2022-01-23 13:34:00 Florecita del angel [place] BP Systolic 2022-01-07 14:51:00 111 mm[Hg] BP Diastolic 2022-01-07 14:51:00 71 mm[Hg] Weight Measured 2022-01-07 14:51:00 118.20 pounds Height Measured 2022-01-07 14:51:00 64.50 inches Body Temperature 2022-01-07 14:51:00 98.10 degrees Heart Rate 2022-01-07 14:51:00 95.00 /min Respiratory Rate 2022-01-07 14:51:00 Systolic (mm Hg) 2021-12-11 18:30:00 Heliowillie cohenl [place] Diastolic (mm Hg) 2021-12-11 18:30:00 [facility] mesha [place] Height 2021-12-11 18:30:00 157.48 cm [facility] [place] Weight 2021-12-11 18:30:00 [facility] [place] BMI Calculated 2021-12-11 18:30:00 Florecita al [place] BP Systolic 2021-09-26 10:45:00 112 mm[Hg] BP Diastolic 2021-09-26 10:45:00 68 mm[Hg] Weight Measured 2021-09-26 10:45:00 124.20 pounds Height Measured 2021-09-26 10:45:00 64.50 inches Body Temperature 2021-09-26 10:45:00 98.10 degrees Heart Rate 2021-09-26 10:45:00 93.00 /min Respiratory Rate 2021-09-26 10:45:00 BP Systolic 2021-06-27 14:43:00 101 mm[Hg] BP Diastolic 2021-06-27 14:43:00 61 mm[Hg] Weight Measured 2021-06-27 14:43:00 122.00 pounds Height Measured 2021-06-27 14:43:00 64.50 inches Body Temperature 2021-06-27 14:43:00 98.10 degrees Heart Rate 2021-06-27 14:43:00 102.00 /min Respiratory Rate 2021-06-27 14:43:00 BP Systolic 2021-02-28 14:11:00 123 mm[Hg] BP Diastolic 2021-02-28 14:11:00 69 mm[Hg] Weight Measured 2021-02-28 14:11:00 118.00 pounds Height Measured 2021-02-28 14:11:00 64.50 inches Body Temperature 2021-02-28 14:11:00 99.10 degrees Heart Rate 2021-02-28 14:11:00 109.00 /min Respiratory Rate 2021-02-28 14:11:00 BP Systolic 2020-10-26 09:14:00 117 mm[Hg] BP Diastolic 2020-10-26 09:14:00 68 mm[Hg] Weight Measured 2020-10-26 09:14:00 Height Measured 2020-10-26 09:14:00 64.50 inches Body Temperature 2020-10-26 09:14:00 97.80 degrees Heart Rate 2020-10-26 09:14:00 96.00 /min Respiratory Rate 2020-10-26 09:14:00 16.00 /min BP Systolic 2020-09-06 07:58:00 108 mm[Hg] BP Diastolic 2020-09-06 07:58:00 69 mm[Hg] Weight Measured 2020-09-06 07:58:00 126.00 pounds Height Measured 2020-09-06 07:58:00 64.50 inches Body Temperature 2020-09-06 07:58:00 97.70 degrees Heart Rate 2020-09-06 07:58:00 91.00 /min Respiratory Rate 2020-09-06 07:58:00 BP Systolic 2020-08-08 15:12:00 109 mm[Hg] BP Diastolic 2020-08-08 15:12:00 67 mm[Hg] Weight Measured 2020-08-08 15:12:00 124.20 pounds Height Measured 2020-08-08 15:12:00 64.50 inches Body Temperature 2020-08-08 15:12:00 98.20 degrees Heart Rate 2020-08-08 15:12:00 98.00 /min Respiratory Rate 2020-08-08 15:12:00 BP Systolic 2020-07-06 09:06:00 120 mm[Hg] BP Diastolic 2020-07-06 09:06:00 73 mm[Hg] Weight Measured 2020-07-06 09:06:00 126.00 pounds Height Measured 2020-07-06 09:06:00 64.50 inches Body Temperature 2020-07-06 09:06:00 97.90 degrees Heart Rate 2020-07-06 09:06:00 103.00 /min Respiratory Rate 2020-07-06 09:06:00 BP Systolic 2020-03-14 14:31:00 100 mm[Hg] BP Diastolic 2020-03-14 14:31:00 63 mm[Hg] Weight Measured 2020-03-14 14:31:00 128.00 pounds Height Measured 2020-03-14 14:31:00 64.50 inches Body Temperature 2020-03-14 14:31:00 97.90 degrees Heart Rate 2020-03-14 14:31:00 96.00 /min Respiratory Rate 2020-03-14 14:31:00 BP Systolic 2019-08-12 11:45:00 107 mm[Hg] BP Diastolic 2019-08-12 11:45:00 69 mm[Hg] Weight Measured 2019-08-12 11:45:00 125.00 pounds Height Measured 2019-08-12 11:45:00 64.50 inches Body Temperature 2019-08-12 11:45:00 Heart Rate 2019-08-12 11:45:00 90.00 /min Respiratory Rate 2019-08-12 11:45:00 Procedures This patient has no known procedures. Plan of Care Planned Activity Planned Date Details Comments Source Goal Plan of Care Note [code = 09898-9] Goal Plan of Care Note [code = 23873-2] Goal Plan of Care Note [code = 43570-6] Goal Plan of Care Note [code = 14218-3] Goal Plan of Care Note [code = 49184-5] Goal Plan of Care Note [code = 77690-0] Goal Plan of Care Note [code = 60977-5] Goal Plan of Care Note [code = 35775-9] Goal Plan of Care Note [code = 06649-0] Goal Plan of Care Note [code = 83416-5] Goal Plan of Care Note [code = 45860-9] Goal Plan of Care Note [code = 25851-0] Goal Plan of Care Note [code = 97898-8] Goal Plan of Care Note [code = 66106-9] Goal Plan of Care Note [code = 90082-9] Goal Plan of Care Note [code = 44454-2] Goal Plan of Care Note [code = 16164-5] Goal Plan of Care Note [code = 97621-7] Goal Plan of Care Note [code = 67642-6] Goal Plan of Care Note [code = 07255-8] Goal Plan of Care Note [code = 95263-3] Goal Plan of Care Note [code = 61035-5] Goal Plan of Care Note [code = 59057-2] Goal Plan of Care Note [code = 00622-5] Goal Plan of Care Note [code = 62965-6] Encounters Start End Encounter Admission Attending Care Care Encounter Source Date/Time Date/Time Type Type Clinicians Facility Department ID 2021-05-17 Outpatient ALAN PHILLIPS [id number] 17:39:46 Anderso omar 2021-05-17 Outpatient ALAN PHILLIPS [id number] 17:39:46 Andchan nelson 2021-04-19 Outpatient VEENA ESCOBAR MDA Pul Med [id number] 13:08:45 Anderso n 2022-04-11 2022-04-11 Outpatient SFA SFA [id number] Jonah 08:48:50 08:48:50 1229 F 2022-04-03 2022-04-03 Outpatient SFA SFA [id number] Jonah 17:24:14 17:24:14 1221 F 2022-03-12 2022-03-12 Ambulatory MHIE MNA [id number] Memoria 16:45:00 16:45:00 Pre-Reg Neurology 02 l Whiting Hayes 2022-03-12 2022-03-12 Ambulatory MHIE MNA [id number] Memoria 16:45:00 16:45:00 Pre-Reg Neurology 02 l Eben Koo 2022-03-12 2022-03-12 Outpatient MHIE MHIE [id number] Memoria 10:45:00 10:45:00 02 [place] 2022-03-12 2022-03-12 Outpatient ESTELITA [facility]QUI[facility] [id number] 10:45:00 10:45:00 Rey 02 Zaki 2022-02-04 2022-02-04 Outpatient SFA [facility] [id number] Jonah 10:13:41 10:13:41 1024 Taras Avila 2022-01-23 2022-01-24 Outpatient nullFlavo MNA [id number] Memoria 13:15:00 04:59:59 r Neurology 01 l Eben Gonzalezann 2022-01-23 2022-01-24 Outpatient nullFlavo MNA [id number] Memoria 13:15:00 04:59:59 r Neurology 01 l Whitingmarielena Gonzalezann 2022-01-23 2022-01-23 [facility] [id number] 08:15:00 23:59:59 Rey Zaki 2022-01-23 2022-01-23 Outpatient MHIE MHIE [id number] Memoria 08:15:00 08:15:00 01 benigno GonzalezHayes 2022-01-07 2022-01-07 Outpatient [id number] 00:00:00 00:00:00 Visit [id number] 2021-12-11 2021-12-12 Outpatient nullFlavo MNA [id number] Memoria 18:15:00 04:59:59 r Neurology 00 l Eben Gonzalezann 2021-12-11 2021-12-12 Outpatient nullFlavo MNA [id number] Memoria 18:15:00 04:59:59 r Neurology 00 l Eben Gonzalezann 2021-12-11 2021-12-11 Outpatient ESTELITA AsencioOKSCHSHARON [facility] [id number] 13:15:00 23:59:59 Rey Zaki 2021-12-11 2021-12-11 Outpatient MHIE MHIE [id number] Memoria 13:15:00 13:15:00 00 l Hayes 2021-11-21 2021-11-21 Outpatient STEPHANIE THAKKAR MDA MDA [id number] 13:48:34 13:48:34 MOIRAPARMINDER [place] willie nelson 2021-10-09 2021-10-09 Telephone [facility] [id number] Univers 00:00:00 00:00:00 [facility] [id number] [place] [id number] [address] OFFICE [facility] 2021-10-09 2021-10-09 Telephone [facility] [id number] Univers 00:00:00 00:00:00 [facility] [id number] [place] [id number] [address] OFFICE [facility] 2021-10-03 2021-10-03 Outpatient R [facility] [id number] Univers 08:00:00 08:00:00 [facility] 2021-09-12 2021-09-12 Outpatient R [facility] [id number] Univers 13:20:00 15:01:08 [facility] 2021-09-12 2021-09-12 Office [facility] [id number] Univers 13:20:00 15:01:08 [facility] [id number] [place] [id number] Ak dical [address] 2021-09-12 2021-09-12 Orders Doctor HUGO [id number] Univers 00:00:00 00:00:00 Only Unassigned, BREEZY 350.1.13.10 ity of [place] [facility] 4.2.7.2.686 [place] [id number] [place] [address] [place] 2021-07-12 2021-07-12 Outpatient STEPHANIE CASANOVA MDA MDA [id number] 14:45:00 23:59:00 GIANNI nelson 2021-07-12 2021-07-12 Outpatient STEPHANIE PRIETO, MDA MDA [id number] 15:50:53 16:36:10 MATIAS nelson 2021-07-12 2021-07-12 Outpatient STEPHANIE CASANOVA, MDA MDA [id number] 12:27:00 14:44:00 GIANNI nelson 2021-04-26 2021-04-26 Outpatient STEPHANIE PRIETO, MDA MDA [id number] MD 06:58:09 06:58:09 MATIAS nelson 2021-04-25 2021-04-25 Outpatient EL JANNETTE, MDA MDA [id number] 12:59:58 23:59:00 KARLY nelson 2021-04-25 2021-04-25 Outpatient STEPHANIE GOLDBERG VEENA MDA MDA [id number] 13:33:41 14:38:58 Sd nelson 2021-04-25 2021-04-25 Outpatient JANNETTE, MDA MDA [id number] 12:48:06 12:52:35 KARLY nelson 2021-04-17 2021-04-17 Outpatient STEPHANIE LORA, MDA Doretha/Hep/Nu [id number] 12:03:00 17:16:00 VINCENZO nelson 2021-04-17 2021-04-17 Outpatient CHELLE BRIZUELA MDA MDA [id number] 08:36:58 08:36:58 Sd nelson 2021-04-16 2021-04-16 Outpatient STEPHANIE PRIETO, MDA MDA [id number] 10:35:22 10:44:11 MATIAS nelson 2021-04-16 2021-04-16 Outpatient STEPHANIE PRIETO, MDA MDA [id number] 08:36:45 08:36:45 MATIAS nelson 2020-08-15 2020-08-15 Outpatient EL ARIANE, MDA MDA [id number] 08:23:38 08:23:38 CHASTITY nelson 2020-07-03 2020-07-03 Outpatient EL EDILBERTO, MDA MDA [id number] 11:06:14 11:06:14 GIANNI nelson 2020-07-03 2020-07-03 Outpatient STEPHANIE CASANOVA, MDA MDA [id number] 10:21:07 10:21:07 GIANNI Be[place] o omar 2020-06-14 2020-06-14 Outpatient EL MARY JO MDA MDA [id number] 14:00:00 23:59:00 S, Sd nelson 2020-06-14 2020-06-14 Outpatient EL MARY JO MDA MDA [id number] 12:55:15 15:26:39 S, Sd nelson 2020-05-23 2020-05-23 Outpatient EL ARIANE, MDA Doretha/Hep/Nu 10 [id number] 12:43:00 19:05:00 CHASTITY nelson 2020-05-22 2020-05-22 Outpatient STEPHANIE PRIETO, MDA MDA [id number] 07:13:44 07:13:44 MATIAS nelson 2020-05-21 2020-05-21 Outpatient STEPHANIE PRIETO, MDA MDA [id number] 11:30:44 12:10:01 MATIAS nelson 2020-05-16 2020-05-16 Outpatient CHELLE LENZ MDA MDA [id number] 08:22:43 08:22:43 Sd nelson 2020-03-29 2020-03-29 Outpatient STEPHANIE JIMENEZ, MDA MDA [id number] MD 15:10:05 15:10:05 FRED nelson 2020-03-28 2020-03-28 Outpatient CHELLE LENZ MDA MDA [id number] 08:17:03 08:17:03 Sd nelson 2015-10-30 2015-10-30 Outpatient STEPHANIE HERZOG, MDA MDA [id number] 07:45:41 07:45:41 THONY nelson Results Test Description Test Time Test Comments Results Result Comments Source TSH, THIRD GENERATION 2022-04-12 06:52:33 Test Item Value Reference Range Interpretation Comme nts TSH, THIRD GENERATION (test 0.129 UIU/ML 0.400-4.100 L UNLESS OTHERWISE INDICATED, code = 2821) ALL TESTING PER FORMED ATCLINICAL PATH OLOGY LABORATORIES, [place]. [address], [place] [address] LABORATORY DIRE CTOR: JOSSY STARR M.D. CLIA NUMBER [id number] [place]. [id number] TSH REFLEX TO FREE [id number] 06:47:38 Test Item Value Reference Range Interpretation Comments TSH REFLEX TO FREE T4 (test code 0.176 UIU/ML 0.400-4.100 L = 2834) FREE T4 (THYROXINE)2022-01-08 06:47:38 Test Item Value Reference Range Interpretation Comments FREE T4 1.67 NG/DL 0.80-1.90 UNLESS OTHERWI SE (THYROXINE) (test INDICATED, ALL TESTING code = 2823) [facility]. [address] [place] [address] [facility] DIRECTOR: Carlos GIMENEZIA NUMBER [id number] CAP ACCREDITATION N O. [id number] BASIC METABOLIC [id number] 05:43:14 Test Item Value Reference Range Interpretation Comments GLUCOSE (test code 88 MG/DL 70-99 = 2217) BUN (test code = 27 MG/DL 8-23 H 2207) CREATININE (test 1.11 MG/DL 0.60-1.30 code = 2214) eGFR (2020 CKD-EPI) 50 ML/MIN/1.73 >60 L The N KF-ASN (test code = 07829) Taskforc e recommends use of Cystatin C to confirm eGFR in adults at risk for CKD . [facility] offers eGFR wit h Cystatin C-Creatinineusi ng the 2020 CKD-EPI eGFR_creat-cyst at equation (order code 3057) toincreas e the accuracy of est imated GFR. For more information, contactyour acc ount executive or se e announcement [email or web address] SODIUM (test code = 142 MEQ/L [phone]) POTASSIUM (test 4.9 MEQ/L 3.5-5.4 code = 2228) CHLORIDE (test code 107 MEQ/L 95-107 = 2215) CARBON DIOXIDE 27 MEQ/L 19-31 (test code = 2206) CALCIUM (test code 9.5 MG/DL 8.5-10.5 = 2209) BASIC METABOLIC [id number] 00:00:00 Test Item Value Reference Range Interpretation Comments GLUCOSE (test code = 2217) 88 MG/DL BUN (test code = 2208) 27 MG/DL CREATININE (test code = 2214) 1.11 MG/DL eGFR (2020 CKD-EPI) (test code 50 ML/MIN/1.73 = 24617) SODIUM (test code = 2231) 142 MEQ/L POTASSIUM (test code = 2228) 4.9 MEQ/L CHLORIDE (test code = 2215) 107 MEQ/L CARBON DIOXIDE (test code = 27 MEQ/L 2206) CALCIUM (test code = 2209) 9.5 MG/DL BASIC METABOLIC [id number] 00:00:00 Test Item Value Reference Range Interpretation Comments GLUCOSE (test code = 2217) 88 MG/DL BUN (test code = 2208) 27 MG/DL CREATININE (test code = 2214) 1.11 MG/DL eGFR (2020 CKD-EPI) (test code 50 ML/MIN/1.73 = 68492) SODIUM (test code = 2231) 142 MEQ/L POTASSIUM (test code = 2228) 4.9 MEQ/L CHLORIDE (test code = 2215) 107 MEQ/L CARBON DIOXIDE (test code = 27 MEQ/L 2206) CALCIUM (test code = 2209) 9.5 MG/DL TSH REFLEX TO FREE [id number] 00:00:00 Test Item Value Reference Range Interpretation Comments TSH REFLEX TO FREE T4 (test code 0.176 UIU/ML = 2834) TSH REFLEX TO FREE [id number] 00:00:00 Test Item Value Reference Range Interpretation Comments TSH REFLEX TO FREE T4 (test code 0.176 UIU/ML = 2834) FREE T4 (THYROXINE) [REFLEX]2022-01-08 00:00:00 Test Item Value Reference Range Interpretation Comments FREE T4 (THYROXINE) (test code = 1.67 NG/DL 2823) FREE T4 (THYROXINE) [REFLEX]2022-01-08 00:00:00 Test Item Value Reference Range Interpretation Comments FREE T4 (THYROXINE) (test code = 1.67 NG/DL 2823) FREE T4 (THYROXINE) [REFLEX]2022-01-08 00:00:00 Test Item Value Reference Range Interpretation Comments FREE T4 (THYROXINE) (test code = 1.67 NG/DL 2823) [id number] 20:06:00 Test Item Value Reference Range Interpretation Comments Sed Rate (test code = Sed Rate) 11 [id number] 20:06:00 Test Item Value Reference Range Interpretation Comments CERULOPLASMIN (test code = 28 18-53 CERULOPLASMIN) [id number] 20:06:00 Test Item Value Reference Range Interpretation Comments Sed Rate (test code = Sed Rate) 11 [facility] [id number] 20:06:00 Test Item Value Reference Range Interpretation Comments CERULOPLASMIN (test code = 28 18-53 CERULOPLASMIN) [facility] [id number] 20:06:00 Test Item Value Reference Range Interpretation Comments Sed Rate (test code = Sed Rate) 11 [facility] [id number] 20:06:00 Test Item Value Reference Range Interpretation Comments CERULOPLASMIN (test code = 28 18-53 CERULOPLASMIN) [facility] [id number] 20:06:00 Test Item Value Reference Range Interpretation Comments Sed Rate (test code = Sed Rate) 11 [facility] [id number] 20:06:00 Test Item Value Reference Range Interpretation Comments CERULOPLASMIN (test code = 28 18-53 CERULOPLASMIN) [facility], THIRD [id number] 06:19:01 Test Item Value Reference Range Interpretation Comments TSH, THIRD GENERATION (test code 0.633 UIU/ML 0.400-4.100 = 2821) FREE T4 (THYROXINE)2021-09-27 06:19:01 Test Item Value Reference Range Interpretation Comments FREE T4 (THYROXINE) (test code = 1.74 NG/DL 0.80-1.90 2823) RENAL FUNCTION [id number] 05:24:32 Test Item Value Reference Range Interpretation Comments GLUCOSE (test code 93 MG/DL 70-99 = 2217) BUN (test code = 24 MG/DL 8-23 H 2207) CREATININE (test 1.17 MG/DL 0.60-1.30 code = 2214) eGFR (2020 CKD-EPI) 47 ML/MIN/1.73 >60 L (test code = 19667) CALC BUN/CREAT 21 RATIO 6-28 (test code = 2235) SODIUM (test code = 142 MEQ/L 830-330 9092) POTASSIUM (test 5.0 MEQ/L 3.5-5.4 code = 2228) CHLORIDE (test code 107 MEQ/L 95-107 = 2215) CARBON DIOXIDE 27 MEQ/L 19-31 (test code = 2206) CALCIUM (test code 9.4 MG/DL 8.5-10.5 = 2209) PHOSPHORUS (test 4.2 MG/DL 2.5-4.5 code = 2227) ALBUMIN (test code 3.9 G/DL 3.5-5.2 UNLESS O THERWISE = 2201) INDICATED, ALL TESTING PERFORM ED ATCLINICAL PATH OLOG LABORATORIES, [facility]. [address] [place] [id number] [place] [address] DIRECTOR: JOSSY STARR M.D. CLIA NUMBER [id number] CAP ACCREDITATION N O. [id number] 00:00:00 Test Item Value Reference Range Interpretation Comments TSH, THIRD GENERATION (test code 0.633 UIU/ML = 2821) [id number] 00:00:00 Test Item Value Reference Range Interpretation Comments TSH, THIRD GENERATION (test code 0.633 UIU/ML = 2821) [id number] 00:00:00 Test Item Value Reference Range Interpretation Comments TSH, THIRD GENERATION (test code 0.633 UIU/ML = 2821) FREE T4 (THYROXINE)2021-09-27 00:00:00 Test Item Value Reference Range Interpretation Comments FREE T4 (THYROXINE) (test code = 1.74 NG/DL 2823) FREE T4 (THYROXINE)2021-09-27 00:00:00 Test Item Value Reference Range Interpretation Comments FREE T4 (THYROXINE) (test code = 1.74 NG/DL 2823) FREE T4 (THYROXINE)2021-09-27 00:00:00 Test Item Value Reference Range Interpretation Comments FREE T4 (THYROXINE) (test code = 1.74 NG/DL 2823) KIDNEY (RENAL) FUNCTION [id number] 00:00:00 Test Item Value Reference Range Interpretation Comments GLUCOSE (test code = 2217) 93 MG/DL BUN (test code = 2208) 24 MG/DL CREATININE (test code = 2214) 1.17 MG/DL eGFR (2020 CKD-EPI) (test code 47 ML/MIN/1.73 = 05491) CALC BUN/CREAT (test code = 21 RATIO 2235) SODIUM (test code = 2231) 142 MEQ/L POTASSIUM (test code = 2228) 5.0 MEQ/L CHLORIDE (test code = 2215) 107 MEQ/L CARBON DIOXIDE (test code = 27 MEQ/L 2206) CALCIUM (test code = 2209) 9.4 MG/DL PHOSPHORUS (test code = 2227) 4.2 MG/DL ALBUMIN (test code = 2201) 3.9 G/DL KIDNEY (RENAL) FUNCTION [id number] 00:00:00 Test Item Value Reference Range Interpretation Comments GLUCOSE (test code = 2217) 93 MG/DL BUN (test code = 2208) 24 MG/DL CREATININE (test code = 2214) 1.17 MG/DL eGFR (2020 CKD-EPI) (test code 47 ML/MIN/1.73 = 25027) CALC BUN/CREAT (test code = 21 RATIO 2235) SODIUM (test code = 2231) 142 MEQ/L POTASSIUM (test code = 2228) 5.0 MEQ/L CHLORIDE (test code = 2215) 107 MEQ/L CARBON DIOXIDE (test code = 27 MEQ/L 2206) CALCIUM (test code = 2209) 9.4 MG/DL PHOSPHORUS (test code = 2227) 4.2 MG/DL ALBUMIN (test code = 2201) 3.9 G/DL OCCULT BLD,FECAL,IMMUNOASSAY [id number] 09:45:23 Test Item Value Reference Range Interpretation Comments OCCULT BLD, FECAL NEGATIVE NEGATIVE UNLESS OT HERWISE (test code = 04905) INDICATE D, ALL TESTING PERFORMED [facility] [address] [place] [address] [facility] DIRECT[facility]: Carlos GIMENEZIA NUMBER [id number] CAP ACCREDITATION N O. [id number] OCCULT BLD,FECAL,IMMUNOASSAY [id number] 00:00:00 Test Item Value Reference Range Interpretation Comments OCCULT BLD, FECAL (test code = NEGATIVE 68211) OCCULT BLD,FECAL,IMMUNOASSAY [id number] 00:00:00 Test Item Value Reference Range Interpretation Comments OCCULT BLD, FECAL (test code = NEGATIVE 46374) OCCULT BLD,FECAL,IMMUNOASSAY [id number] 00:00:00 Test Item Value Reference Range Interpretation Comments OCCULT BLD, FECAL (test code = NEGATIVE 92448) TSH + FREE T4 [id number] 06:41:17 Test Item Value Reference Range Interpretation Comments TSH, THIRD GENERATION (test code 0.311 UIU/ML 0.400-4.100 L = 2821) FREE T4 (THYROXINE) (test code = 1.79 NG/DL 0.80-1.90 2823) VITAMIN [id number] 06:41:17 Test Item Value Reference Range Interpretation Comments VITAMIN B-12 (test code = 2840) 417 PG/ML 200-950 LIPID [id number] 03:28:23 Test Item Value Reference Range Interpretation Comments CHOLESTEROL (test 210 MG/DL <200 H code = 2210) TRIGLYCERIDES (test 68 MG/DL <150 code = 2232) HDL CHOLESTEROL (test 70 MG/DL >39 code = 2220) CALC LDL CHOL (test 124 MG/DL <100 H NOTE: C ALCULATED LDL code = 2237) IS BASED ON DAQUAN-TOWNSEND METHOD WHICHINCLUDES ADJUSTABLE TRIGLYCERIDE:VL DL CHOLESTEROL RAT IO.THIS FACTOR VARIES B Y MEASURED TRIGLY CERIDE AND NON-HDLCHOL ESTEROL CONCENTRATIONS WITH INCREASED CALCU LATED LDL SEENIN HIGH ER TRIGLYCERIDE OR LOWER NON-HDL SPECIME NS. FOR MOREINFORMATION , SEE CLIENT ANNOUNCE MENT AT [email or web address] RISK RATIO LDL/HDL 1.77 RATIO <3.22 (test code = 2238) COMPREHENSIVE METABOLIC [id number] 03:28:23 Test Item Value Reference Range Interpretation Comments GLUCOSE (test code = 95 MG/DL 70-99 2216) BUN (test code = 22 MG/DL 12-04) CREATININE (test 1.13 MG/DL 0.60-1.30 code = 2214) eGFR (2020 CKD-EPI) 49 ML/MIN/1.73 >60 L (test code = 56086) CALC BUN/CREAT (test 19 RATIO 10-09 code = 2235) SODIUM (test code = 142 MEQ/L 663-128 4036) POTASSIUM (test code 4.8 MEQ/L 3.5-5.4 = 2228) CHLORIDE (test code 108 MEQ/L 95-107 H = 2215) CARBON DIOXIDE (test 24 MEQ/L 19-31 code = 2206) CALCIUM (test code = 9.5 MG/DL 8.5-10.5 2208) PROTEIN, TOTAL (test 6.4 G/DL 6.1-8.3 code = 2229) ALBUMIN (test code = 3.9 G/DL 3.5-5.2 2200) CALC GLOBULIN (test 2.5 G/DL 1.9-3.7 code = 2240) CALC A/G RATIO (test 1.6 RATIO 1.0-2.6 code = 2234) BILIRUBIN, TOTAL 0.4 MG/DL See_Comment [Automated message] (test code = 2207) The syste m which generated this result transmit jie reference range : <=1.2. The refe rence range was not u sed to interpret th is result as normal/abnormal . ALKALINE PHOSPHATASE 66 U/L 40-142 (test code = 2203) AST (test code = 21 U/L 9-40 2217) ALT (test code = 20 U/L 5-40 2218) [id number] 03:27:28 Test Item Value Reference Range Interpretation Comments MAGNESIUM (test code 2.3 MG/DL 1.6-2.6 UNLESS OTHERWISE = 2226) INDICATED, ALL TESTING PERFORMED [facility] PATHOLOGY [facility], [facility]. [address] [place] [address] 4 LABORATORY DIRE CTOR: JOSSY PIMENTEL M.D. CLIA NUMBER [id number] [place] [id number] HEMOGLOBIN [id number] 02:15:57 Test Item Value Reference Range Interpretation Comments HEMOGLOBIN A1c (test code = 49457) 5.5 % 4.2-5.6 CBC W/AUTO DIFF WITH [id number] 02:13:29 Test Item Value Reference Range Interpretation Comments WBC (test code = 7.1 K/UL 3.5-11.0 1001) RBC (test code = 4.26 M/UL 3.80-5.40 1002) HEMOGLOBIN (test code 13.1 G/DL 11.5-15.5 = 1003) HEMATOCRIT (test code 37.9 % 34.0-45.0 = 1004) MCV (test code = 89.0 fL 80.0-99.0 1005) MCH (test code = 30.8 PG 25.0-33.0 1006) MCHC (test code = 34.6 G/DL 31.0-36.0 1007) RDW (test code = 13.0 % 11.5-15.0 1038) NEUTROPHILS (test 46.8 % code = 1008) LYMPHOCYTES (test 39.9 % code = 1010) MONOCYTES (test code 9.9 % = 1011) EOSINOPHILS (test 2.4 % code = 1012) BASOPHILS (test code 0.7 % = 1013) IMMATURE GRANULOCYTES 0.3 % (test code = 1036) NUCLEATED RBCS (test 0.0 /100 WBC'S See_Comment [Aut omated code = 1065) message] The sy stem which generated this result transmitted reference range : 0.0. The refere nce range was not u sed to interpret th is result as normal/abnormal . PLATELET COUNT (test 280 K/UL 130-400 code = 1015) ABSOLUTE NEUTROPHILS 3.30 K/UL 1.50-7.50 (test code = 1066) ABSOLUTE LYMPHOCYTES 2.82 K/UL 1.00-4.00 (test code = 1067) ABSOLUTE MONOCYTES 0.70 K/UL 0.20-1.00 (test code = 1068) ABSOLUTE EOSINOPHILS 0.17 K/UL 0.00-0.50 (test code = 1040) ABSOLUTE BASOPHILS 0.05 K/UL 0.00-0.20 (test code = 1069) ABS IMMATURE 0.02 K/UL 0.00-0.10 GRANULOCYTES (test code = 1020) ABS NUCLEATED RBCS 0.00 K/UL 0.00-0.11 (test code = 58733) CBC W/AUTO [id number] 00:00:00 Test Item Value Reference Range Interpretation Comments WBC (test code = 1001) 7.1 K/UL RBC (test code = 1002) 4.26 M/UL HEMOGLOBIN (test code = 1003) 13.1 G/DL HEMATOCRIT (test code = 1004) 37.9 % MCV (test code = 1005) 89.0 fL MCH (test code = 1006) 30.8 PG MCHC (test code = 1007) 34.6 G/DL RDW (test code = 1038) 13.0 % NEUTROPHILS (test code = 1008) 46.8 % LYMPHOCYTES (test code = 1010) 39.9 % MONOCYTES (test code = 1011) 9.9 % EOSINOPHILS (test code = 1012) 2.4 % BASOPHILS (test code = 1013) 0.7 % IMMATURE GRANULOCYTES (test 0.3 % code = 1036) NUCLEATED RBCS (test code = 0.0 /100WBC'S 1065) PLATELET COUNT (test code = 280 K/UL 1015) ABSOLUTE NEUTROPHILS (test code 3.30 K/UL = 1066) ABSOLUTE LYMPHOCYTES (test code 2.82 K/UL = 1067) ABSOLUTE MONOCYTES (test code = 0.70 K/UL 1068) ABSOLUTE EOSINOPHILS (test code 0.17 K/UL = 1040) ABSOLUTE BASOPHILS (test code = 0.05 K/UL 1069) ABS IMMATURE GRANULOCYTES (test 0.02 K/UL code = 1020) ABS NUCLEATED RBCS (test code = 0.00 K/UL 03755) CBC W/AUTO [id number] 00:00:00 Test Item Value Reference Range Interpretation Comments WBC (test code = 1001) 7.1 K/UL RBC (test code = 1002) 4.26 M/UL HEMOGLOBIN (test code = 1003) 13.1 G/DL HEMATOCRIT (test code = 1004) 37.9 % MCV (test code = 1005) 89.0 fL MCH (test code = 1006) 30.8 PG MCHC (test code = 1007) 34.6 G/DL RDW (test code = 1038) 13.0 % NEUTROPHILS (test code = 1008) 46.8 % LYMPHOCYTES (test code = 1010) 39.9 % MONOCYTES (test code = 1011) 9.9 % EOSINOPHILS (test code = 1012) 2.4 % BASOPHILS (test code = 1013) 0.7 % IMMATURE GRANULOCYTES (test 0.3 % code = 1036) NUCLEATED RBCS (test code = 0.0 /100WBC'S 1065) PLATELET COUNT (test code = 280 K/UL 1015) ABSOLUTE NEUTROPHILS (test code 3.30 K/UL = 1066) ABSOLUTE LYMPHOCYTES (test code 2.82 K/UL = 1067) ABSOLUTE MONOCYTES (test code = 0.70 K/UL 1068) ABSOLUTE EOSINOPHILS (test code 0.17 K/UL = 1040) ABSOLUTE BASOPHILS (test code = 0.05 K/UL 1069) ABS IMMATURE GRANULOCYTES (test 0.02 K/UL code = 1020) ABS NUCLEATED RBCS (test code = 0.00 K/UL 41931) CBC W/AUTO [id number] 00:00:00 Test Item Value Reference Range Interpretation Comments WBC (test code = 1001) 7.1 K/UL RBC (test code = 1002) 4.26 M/UL HEMOGLOBIN (test code = 1003) 13.1 G/DL HEMATOCRIT (test code = 1004) 37.9 % MCV (test code = 1005) 89.0 fL MCH (test code = 1006) 30.8 PG MCHC (test code = 1007) 34.6 G/DL RDW (test code = 1038) 13.0 % NEUTROPHILS (test code = 1008) 46.8 % LYMPHOCYTES (test code = 1010) 39.9 % MONOCYTES (test code = 1011) 9.9 % EOSINOPHILS (test code = 1012) 2.4 % BASOPHILS (test code = 1013) 0.7 % IMMATURE GRANULOCYTES (test 0.3 % code = 1036) NUCLEATED RBCS (test code = 0.0 /100WBC'S 1065) PLATELET COUNT (test code = 280 K/UL 1015) ABSOLUTE NEUTROPHILS (test code 3.30 K/UL = 1066) ABSOLUTE LYMPHOCYTES (test code 2.82 K/UL = 1067) ABSOLUTE MONOCYTES (test code = 0.70 K/UL 1068) ABSOLUTE EOSINOPHILS (test code 0.17 K/UL = 1040) ABSOLUTE BASOPHILS (test code = 0.05 K/UL 1069) ABS IMMATURE GRANULOCYTES (test 0.02 K/UL code = 1020) ABS NUCLEATED RBCS (test code = 0.00 K/UL 58868) HEMOGLOBIN [id number] 00:00:00 Test Item Value Reference Range Interpretation Comments HEMOGLOBIN A1c (test code = 71185) 5.5 % HEMOGLOBIN [id number] 00:00:00 Test Item Value Reference Range Interpretation Comments HEMOGLOBIN A1c (test code = 65106) 5.5 % HEMOGLOBIN [id number] 00:00:00 Test Item Value Reference Range Interpretation Comments HEMOGLOBIN A1c (test code = 16746) 5.5 % LIPID [id number] 00:00:00 Test Item Value Reference Range Interpretation Comments CHOLESTEROL (test code = 2210) 210 MG/DL TRIGLYCERIDES (test code = 2232) 68 MG/DL HDL CHOLESTEROL (test code = 2220) 70 MG/DL CALC LDL CHOL (test code = 2237) 124 MG/DL RISK RATIO LDL/HDL (test code = 1.77 RATIO 2238) LIPID [id number] 00:00:00 Test Item Value Reference Range Interpretation Comments CHOLESTEROL (test code = 2210) 210 MG/DL TRIGLYCERIDES (test code = 2232) 68 MG/DL HDL CHOLESTEROL (test code = 2220) 70 MG/DL CALC LDL CHOL (test code = 2237) 124 MG/DL RISK RATIO LDL/HDL (test code = 1.77 RATIO 2238) COMPREHENSIVE METABOLIC [id number] 00:00:00 Test Item Value Reference Range Interpretation Comments GLUCOSE (test code = 2217) 95 MG/DL BUN (test code = 2208) 22 MG/DL CREATININE (test code = 2214) 1.13 MG/DL eGFR (2020 CKD-EPI) (test code 49 ML/MIN/1.73 = 19528) CALC BUN/CREAT (test code = 19 RATIO 2235) SODIUM (test code = 2231) 142 MEQ/L POTASSIUM (test code = 2228) 4.8 MEQ/L CHLORIDE (test code = 2215) 108 MEQ/L CARBON DIOXIDE (test code = 24 MEQ/L 2205) CALCIUM (test code = 2209) 9.5 MG/DL PROTEIN, TOTAL (test code = 6.4 G/DL 2228) ALBUMIN (test code = 2201) 3.9 G/DL CALC GLOBULIN (test code = 2.5 G/DL 0) CALC A/G RATIO (test code = 1.6 RATIO 2234) BILIRUBIN, TOTAL (test code = 0.4 MG/DL 2206) ALKALINE PHOSPHATASE (test 66 U/L code = 2204) AST (test code = 2218) 21 U/L ALT (test code = 2219) 20 U/L COMPREHENSIVE METABOLIC [id number] 00:00:00 Test Item Value Reference Range Interpretation Comments GLUCOSE (test code = 2217) 95 MG/DL BUN (test code = 2208) 22 MG/DL CREATININE (test code = 2214) 1.13 MG/DL eGFR (2020 CKD-EPI) (test code 49 ML/MIN/1.73 = 36708) CALC BUN/CREAT (test code = 19 RATIO 2234) SODIUM (test code = 2231) 142 MEQ/L POTASSIUM (test code = 2228) 4.8 MEQ/L CHLORIDE (test code = 2215) 108 MEQ/L CARBON DIOXIDE (test code = 24 MEQ/L 2205) CALCIUM (test code = 2209) 9.5 MG/DL PROTEIN, TOTAL (test code = 6.4 G/DL 2228) ALBUMIN (test code = 220) 3.9 G/DL CALC GLOBULIN (test code = 2.5 G/DL 2239) CALC A/G RATIO (test code = 1.6 RATIO 2233) BILIRUBIN, TOTAL (test code = 0.4 MG/DL 2206) ALKALINE PHOSPHATASE (test 66 U/L code = 220) AST (test code = 2218) 21 U/L ALT (test code = 2219) 20 U/L TSH + FREE T4 [id number] 00:00:00 Test Item Value Reference Range Interpretation Comments TSH, THIRD GENERATION (test code 0.311 UIU/ML = 2821) FREE T4 (THYROXINE) (test code = 1.79 NG/DL 2823) TSH + FREE T4 [id number] 00:00:00 Test Item Value Reference Range Interpretation Comments TSH, THIRD GENERATION (test code 0.311 UIU/ML = 2821) FREE T4 (THYROXINE) (test code = 1.79 NG/DL 2823) TSH + FREE T4 [id number] 00:00:00 Test Item Value Reference Range Interpretation Comments TSH, THIRD GENERATION (test code 0.311 UIU/ML = 2821) FREE T4 (THYROXINE) (test code = 1.79 NG/DL 2823) VITAMIN [id number] 00:00:00 Test Item Value Reference Range Interpretation Comments VITAMIN B-12 (test code = 2840) 417 PG/ML VITAMIN [id number] 00:00:00 Test Item Value Reference Range Interpretation Comments VITAMIN B-12 (test code = 2840) 417 PG/ML VITAMIN [id number] 00:00:00 Test Item Value Reference Range Interpretation Comments VITAMIN B-12 (test code = 2840) 417 PG/ML [id number] 00:00:00 Test Item Value Reference Range Interpretation Comments MAGNESIUM (test code = 2226) 2.3 MG/DL [id number] 00:00:00 Test Item Value Reference Range Interpretation Comments MAGNESIUM (test code = 2226) 2.3 MG/DL [id number] 00:00:00 Test Item Value Reference Range Interpretation Comments MAGNESIUM (test code = 2226) 2.3 MG/DL CBC W/AUTO [id number] 00:00:00 Test Item Value Reference Range Interpretation Comments WBC (test code = 1001) 9.2 K/UL RBC (test code = 1002) 4.00 M/UL HEMOGLOBIN (test code = 1003) 12.3 G/DL HEMATOCRIT (test code = 1004) 36.1 % MCV (test code = 1005) 90.3 fL MCH (test code = 1006) 30.8 PG MCHC (test code = 1007) 34.1 G/DL RDW (test code = 1038) 12.6 % NEUTROPHILS (test code = 1008) 49.7 % LYMPHOCYTES (test code = 1010) 35.8 % MONOCYTES (test code = 1011) 10.4 % EOSINOPHILS (test code = 1012) 3.1 % BASOPHILS (test code = 1013) 0.7 % IMMATURE GRANYLOCYTES (test 0.3 % code = 1036) NUCLEATED RBCS (test code = 0.0 /100WBC'S 1065) PLATELET COUNT (test code = 369 K/UL 1015) ABSOLUTE NEUTROPHILS (test code 4.56 K/UL = 1066) ABSOLUTE LYMPHOCYTES (test code 3.28 K/UL = 1067) ABSOLUTE MONOCYTES (test code = 0.95 K/UL 1068) ABSOLUTE EOSINOPHILS (test code 0.28 K/UL = 1040) ABSOLUTE BASOPHILS (test code = 0.06 K/UL 1069) ABS IMMATURE GRANULOCYTES (test 0.03 K/UL code = 1020) ABS NUCLEATED RBCS (test code = 0.00 K/UL 97715) CBC W/AUTO [id number] 00:00:00 Test Item Value Reference Range Interpretation Comments WBC (test code = 1001) 9.2 K/UL RBC (test code = 1002) 4.00 M/UL HEMOGLOBIN (test code = 1003) 12.3 G/DL HEMATOCRIT (test code = 1004) 36.1 % MCV (test code = 1005) 90.3 fL MCH (test code = 1006) 30.8 PG MCHC (test code = 1007) 34.1 G/DL RDW (test code = 1038) 12.6 % NEUTROPHILS (test code = 1008) 49.7 % LYMPHOCYTES (test code = 1010) 35.8 % MONOCYTES (test code = 1011) 10.4 % EOSINOPHILS (test code = 1012) 3.1 % BASOPHILS (test code = 1013) 0.7 % IMMATURE GRANYLOCYTES (test 0.3 % code = 1036) NUCLEATED RBCS (test code = 0.0 /100WBC'S 1065) PLATELET COUNT (test code = 369 K/UL 1015) ABSOLUTE NEUTROPHILS (test code 4.56 K/UL = 1066) ABSOLUTE LYMPHOCYTES (test code 3.28 K/UL = 1067) ABSOLUTE MONOCYTES (test code = 0.95 K/UL 1068) ABSOLUTE EOSINOPHILS (test code 0.28 K/UL = 1040) ABSOLUTE BASOPHILS (test code = 0.06 K/UL 1069) ABS IMMATURE GRANULOCYTES (test 0.03 K/UL code = 1020) ABS NUCLEATED RBCS (test code = 0.00 K/UL 59953) CBC W/AUTO [id number] 00:00:00 Test Item Value Reference Range Interpretation Comments WBC (test code = 1001) 9.2 K/UL RBC (test code = 1002) 4.00 M/UL HEMOGLOBIN (test code = 1003) 12.3 G/DL HEMATOCRIT (test code = 1004) 36.1 % MCV (test code = 1005) 90.3 fL MCH (test code = 1006) 30.8 PG MCHC (test code = 1007) 34.1 G/DL RDW (test code = 1038) 12.6 % NEUTROPHILS (test code = 1008) 49.7 % LYMPHOCYTES (test code = 1010) 35.8 % MONOCYTES (test code = 1011) 10.4 % EOSINOPHILS (test code = 1012) 3.1 % BASOPHILS (test code = 1013) 0.7 % IMMATURE GRANYLOCYTES (test 0.3 % code = 1036) NUCLEATED RBCS (test code = 0.0 /100WBC'S 1065) PLATELET COUNT (test code = 369 K/UL 1015) ABSOLUTE NEUTROPHILS (test code 4.56 K/UL = 1066) ABSOLUTE LYMPHOCYTES (test code 3.28 K/UL = 1067) ABSOLUTE MONOCYTES (test code = 0.95 K/UL 1068) ABSOLUTE EOSINOPHILS (test code 0.28 K/UL = 1040) ABSOLUTE BASOPHILS (test code = 0.06 K/UL 1069) ABS IMMATURE GRANULOCYTES (test 0.03 K/UL code = 1020) ABS NUCLEATED RBCS (test code = 0.00 K/UL 41326) CBC W/AUTO [id number] 00:00:00 Test Item Value Reference Range Interpretation Comments WBC (test code = 1001) 17.3 K/UL RBC (test code = 1002) 4.27 M/UL HEMOGLOBIN (test code = 1003) 13.6 G/DL HEMATOCRIT (test code = 1004) 39.5 % MCV (test code = 1005) 92.5 fL MCH (test code = 1006) 31.9 PG MCHC (test code = 1007) 34.4 G/DL RDW (test code = 1038) 12.9 % NEUTROPHILS (test code = 1008) 75.3 % LYMPHOCYTES (test code = 1010) 15.3 % MONOCYTES (test code = 1011) 8.3 % EOSINOPHILS (test code = 1012) 0.5 % BASOPHILS (test code = 1013) 0.3 % IMMATURE GRANULOCYTES (test 0.3 % code = 1036) NUCLEATED RBCS (test code = 0.0 /100WBC'S 1065) PLATELET COUNT (test code = 274 K/UL 1015) ABSOLUTE NEUTROPHILS (test code 13.01 K/UL = 1066) ABSOLUTE LYMPHOCYTES (test code 2.65 K/UL = 1067) ABSOLUTE MONOCYTES (test code = 1.44 K/UL 1068) ABSOLUTE EOSINOPHILS (test code 0.09 K/UL = 1040) ABSOLUTE BASOPHILS (test code = 0.06 K/UL 1069) ABS IMMATURE GRANULOCYTES (test 0.06 K/UL code = 1020) ABS NUCLEATED RBCS (test code = 0.02 K/UL 67561) CBC W/AUTO [id number] 00:00:00 Test Item Value Reference Range Interpretation Comments WBC (test code = 1001) 17.3 K/UL RBC (test code = 1002) 4.27 M/UL HEMOGLOBIN (test code = 1003) 13.6 G/DL HEMATOCRIT (test code = 1004) 39.5 % MCV (test code = 1005) 92.5 fL MCH (test code = 1006) 31.9 PG MCHC (test code = 1007) 34.4 G/DL RDW (test code = 1038) 12.9 % NEUTROPHILS (test code = 1008) 75.3 % LYMPHOCYTES (test code = 1010) 15.3 % MONOCYTES (test code = 1011) 8.3 % EOSINOPHILS (test code = 1012) 0.5 % BASOPHILS (test code = 1013) 0.3 % IMMATURE GRANULOCYTES (test 0.3 % code = 1036) NUCLEATED RBCS (test code = 0.0 /100WBC'S 1065) PLATELET COUNT (test code = 274 K/UL 1015) ABSOLUTE NEUTROPHILS (test code 13.01 K/UL = 1066) ABSOLUTE LYMPHOCYTES (test code 2.65 K/UL = 1067) ABSOLUTE MONOCYTES (test code = 1.44 K/UL 1068) ABSOLUTE EOSINOPHILS (test code 0.09 K/UL = 1040) ABSOLUTE BASOPHILS (test code = 0.06 K/UL 1069) ABS IMMATURE GRANULOCYTES (test 0.06 K/UL code = 1020) ABS NUCLEATED RBCS (test code = 0.02 K/UL 10939) CBC W/AUTO [id number] 00:00:00 Test Item Value Reference Range Interpretation Comments WBC (test code = 1001) 17.3 K/UL RBC (test code = 1002) 4.27 M/UL HEMOGLOBIN (test code = 1003) 13.6 G/DL HEMATOCRIT (test code = 1004) 39.5 % MCV (test code = 1005) 92.5 fL MCH (test code = 1006) 31.9 PG MCHC (test code = 1007) 34.4 G/DL RDW (test code = 1038) 12.9 % NEUTROPHILS (test code = 1008) 75.3 % LYMPHOCYTES (test code = 1010) 15.3 % MONOCYTES (test code = 1011) 8.3 % EOSINOPHILS (test code = 1012) 0.5 % BASOPHILS (test code = 1013) 0.3 % IMMATURE GRANULOCYTES (test 0.3 % code = 1036) NUCLEATED RBCS (test code = 0.0 /100WBC'S 1065) PLATELET COUNT (test code = 274 K/UL 1015) ABSOLUTE NEUTROPHILS (test code 13.01 K/UL = 1066) ABSOLUTE LYMPHOCYTES (test code 2.65 K/UL = 1067) ABSOLUTE MONOCYTES (test code = 1.44 K/UL 1068) ABSOLUTE EOSINOPHILS (test code 0.09 K/UL = 1040) ABSOLUTE BASOPHILS (test code = 0.06 K/UL 1069) ABS IMMATURE GRANULOCYTES (test 0.06 K/UL code = 1020) ABS NUCLEATED RBCS (test code = 0.02 K/UL 05321) COMPREHENSIVE METABOLIC [id number] 00:00:00 Test Item Value Reference Range Interpretation Comments GLUCOSE (test code = 2217) 106 MG/DL BUN (test code = 2208) 19 MG/DL CREATININE (test code = 2214) 1.05 MG/DL eGFR AMER. (test code 58 ML/MIN/1.73 = 42447) eGFR NON- AMER. (test 50 ML/MIN/1.73 code = 06215) CALC BUN/CREAT (test code = 18 RATIO 2235) SODIUM (test code = 2231) 142 MEQ/L POTASSIUM (test code = 2228) 5.2 MEQ/L CHLORIDE (test code = 2215) 109 MEQ/L CARBON DIOXIDE (test code = 21 MEQ/L 2206) CALCIUM (test code = 2209) 9.6 MG/DL PROTEIN, TOTAL (test code = 6.3 G/DL 2228) ALBUMIN (test code = 2201) 4.2 G/DL CALC GLOBULIN (test code = 2.1 G/DL 2240) CALC A/G RATIO (test code = 2.0 RATIO 2234) BILIRUBIN, TOTAL (test code = 0.2 MG/DL 220) ALKALINE PHOSPHATASE (test 60 U/L code = 2204) AST (test code = 2218) 24 U/L ALT (test code = 2219) 14 U/L COMPREHENSIVE METABOLIC [id number] 00:00:00 Test Item Value Reference Range Interpretation Comments GLUCOSE (test code = 2217) 106 MG/DL BUN (test code = 2208) 19 MG/DL CREATININE (test code = 2214) 1.05 MG/DL eGFR AMER. (test code 58 ML/MIN/1.73 = 74732) eGFR NON- AMER. (test 50 ML/MIN/1.73 code = 54980) CALC BUN/CREAT (test code = 18 RATIO 5) SODIUM (test code = 2231) 142 MEQ/L POTASSIUM (test code = 2228) 5.2 MEQ/L CHLORIDE (test code = 2215) 109 MEQ/L CARBON DIOXIDE (test code = 21 MEQ/L 2205) CALCIUM (test code = 2209) 9.6 MG/DL PROTEIN, TOTAL (test code = 6.3 G/DL 2228) ALBUMIN (test code = 2201) 4.2 G/DL CALC GLOBULIN (test code = 2.1 G/DL 2239) CALC A/G RATIO (test code = 2.0 RATIO 2233) BILIRUBIN, TOTAL (test code = 0.2 MG/DL 2206) ALKALINE PHOSPHATASE (test 60 U/L code = 2204) AST (test code = 2218) 24 U/L ALT (test code = 2219) 14 U/L HEMOGLOBIN [id number] 00:00:00 Test Item Value Reference Range Interpretation Comments HEMOGLOBIN A1c (test code = 28537) 5.6 % HEMOGLOBIN [id number] 00:00:00 Test Item Value Reference Range Interpretation Comments HEMOGLOBIN A1c (test code = 68860) 5.6 % HEMOGLOBIN [id number] 00:00:00 Test Item Value Reference Range Interpretation Comments HEMOGLOBIN A1c (test code = 85245) 5.6 % FREE T4 (THYROXINE)2020-10-27 00:00:00 Test Item Value Reference Range Interpretation Comments FREE T4 (THYROXINE) (test code = 1.39 NG/DL 2823) FREE T4 (THYROXINE)2020-10-27 00:00:00 Test Item Value Reference Range Interpretation Comments FREE T4 (THYROXINE) (test code = 1.39 NG/DL 2823) FREE T4 (THYROXINE)2020-10-27 00:00:00 Test Item Value Reference Range Interpretation Comments FREE T4 (THYROXINE) (test code = 1.39 NG/DL 2823) [id number] 00:00:00 Test Item Value Reference Range Interpretation Comments TSH, THIRD GENERATION (test code 1.710 UIU/ML = 2821) [id number] 00:00:00 Test Item Value Reference Range Interpretation Comments TSH, THIRD GENERATION (test code 1.710 UIU/ML = 2821) [id number] 00:00:00 Test Item Value Reference Range Interpretation Comments TSH, THIRD GENERATION (test code 1.710 UIU/ML = 2821) VITAMIN D, 25 [id number] 00:00:00 Test Item Value Reference Range Interpretation Comments VITAMIN D, 25 OH (test code = 4958) 46 NG/ML VITAMIN D, 25 [id number] 00:00:00 Test Item Value Reference Range Interpretation Comments VITAMIN D, 25 OH (test code = 4958) 46 NG/ML BASIC METABOLIC [id number] 00:00:00 Test Item Value Reference Range Interpretation Comments GLUCOSE (test code = 2217) 92 MG/DL BUN (test code = 2208) 21 MG/DL CREATININE (test code = 2214) 1.23 MG/DL eGFR AMER. (test code 48 ML/MIN/1.73 = 51165) eGFR NON- AMER. (test 41 ML/MIN/1.73 code = 21635) SODIUM (test code = 2231) 142 MEQ/L POTASSIUM (test code = 2228) 5.2 MEQ/L CHLORIDE (test code = 2215) 103 MEQ/L CARBON DIOXIDE (test code = 25 MEQ/L 2206) CALCIUM (test code = 2209) 9.7 MG/DL BASIC METABOLIC [id number] 00:00:00 Test Item Value Reference Range Interpretation Comments GLUCOSE (test code = 2217) 92 MG/DL BUN (test code = 2208) 21 MG/DL CREATININE (test code = 2214) 1.23 MG/DL eGFR AMER. (test code 48 ML/MIN/1.73 = 31603) eGFR NON- AMER. (test 41 ML/MIN/1.73 code = 24346) SODIUM (test code = 2231) 142 MEQ/L POTASSIUM (test code = 2228) 5.2 MEQ/L CHLORIDE (test code = 2215) 103 MEQ/L CARBON DIOXIDE (test code = 25 MEQ/L 2206) CALCIUM (test code = 2209) 9.7 MG/DL [id number] 00:00:00 Test Item Value Reference Range Interpretation Comments MAGNESIUM (test code = 2226) 2.5 MG/DL [id number] 00:00:00 Test Item Value Reference Range Interpretation Comments MAGNESIUM (test code = 2226) 2.5 MG/DL [id number] 00:00:00 Test Item Value Reference Range Interpretation Comments MAGNESIUM (test code = 2226) 2.5 MG/DL LIVER (HEPATIC) FUNCTION [id number] 00:00:00 Test Item Value Reference Range Interpretation Comments PROTEIN, TOTAL (test code = 2229) 6.4 G/DL ALBUMIN (test code = 2201) 4.1 G/DL BILIRUBIN, TOTAL (test code = 2207) 0.3 MG/DL BILIRUBIN, DIRECT (test code = 0.1 MG/DL 2021) ALKALINE PHOSPHATASE (test code = 80 U/L 2203) AST (test code = 2218) 38 U/L ALT (test code = 2219) 35 U/L LIVER (HEPATIC) FUNCTION [id number] 00:00:00 Test Item Value Reference Range Interpretation Comments PROTEIN, TOTAL (test code = 2229) 6.4 G/DL ALBUMIN (test code = 2201) 4.1 G/DL BILIRUBIN, TOTAL (test code = 2207) 0.3 MG/DL BILIRUBIN, DIRECT (test code = 0.1 MG/DL 2021) ALKALINE PHOSPHATASE (test code = 80 U/L 2203) AST (test code = 2218) 38 U/L ALT (test code = 2219) 35 U/L OCCULT BLD,FECAL,IMMUNOASSAY [id number] 00:00:00 Test Item Value Reference Range Interpretation Comments OCCULT BLD, FECAL (test code = NEGATIVE 37193) OCCULT BLD,FECAL,IMMUNOASSAY [id number] 00:00:00 Test Item Value Reference Range Interpretation Comments OCCULT BLD, FECAL (test code = NEGATIVE 16133) OCCULT BLD,FECAL,IMMUNOASSAY [id number] 00:00:00 Test Item Value Reference Range Interpretation Comments OCCULT BLD, FECAL (test code = NEGATIVE 26908) CULTURE, URINE [ADDED]2020-03-16 00:00:00 Test Item Value Reference Range Interpretation Comments CULTURE, URINE (test SPECIMEN NUMBER: code = [id number] CULTURE, URINE [ADDED]2020-03-16 00:00:00 Test Item Value Reference Range Interpretation Comments CULTURE, URINE (test SPECIMEN NUMBER: code = 45157) [id number] LIPID [id number] 00:00:00 Test Item Value Reference Range Interpretation Comments CHOLESTEROL (test code = 2210) 186 MG/DL TRIGLYCERIDES (test code = 2232) 122 MG/DL HDL CHOLESTEROL (test code = 2220) 62 MG/DL CALC LDL CHOL (test code = 2237) 102 MG/DL RISK RATIO LDL/HDL (test code = 1.65 RATIO 2238) LIPID [id number] 00:00:00 Test Item Value Reference Range Interpretation Comments CHOLESTEROL (test code = 2210) 186 MG/DL TRIGLYCERIDES (test code = 2232) 122 MG/DL HDL CHOLESTEROL (test code = 2220) 62 MG/DL CALC LDL CHOL (test code = 2237) 102 MG/DL RISK RATIO LDL/HDL (test code = 1.65 RATIO 2238) COMPREHENSIVE METABOLIC [id number] 00:00:00 Test Item Value Reference Range Interpretation Comments GLUCOSE (test code = 2217) 130 MG/DL BUN (test code = 2208) 23 MG/DL CREATININE (test code = 2214) 1.22 MG/DL eGFR AMER. (test code 49 ML/MIN/1.73 = 74677) eGFR NON- AMER. (test 42 ML/MIN/1.73 code = 65970) CALC BUN/CREAT (test code = 19 RATIO 2235) SODIUM (test code = 2231) 142 MEQ/L POTASSIUM (test code = 2228) 4.5 MEQ/L CHLORIDE (test code = 2215) 106 MEQ/L CARBON DIOXIDE (test code = 27 MEQ/L 2205) CALCIUM (test code = 2209) 9.5 MG/DL PROTEIN, TOTAL (test code = 6.0 G/DL 2228) ALBUMIN (test code = 2201) 3.9 G/DL CALC GLOBULIN (test code = 2.1 G/DL 2240) CALC A/G RATIO (test code = 1.9 RATIO 2234) BILIRUBIN, TOTAL (test code = 0.4 MG/DL 2206) ALKALINE PHOSPHATASE (test 57 U/L code = 2204) AST (test code = 2218) 21 U/L ALT (test code = 2219) 15 U/L COMPREHENSIVE METABOLIC [id number] 00:00:00 Test Item Value Reference Range Interpretation Comments GLUCOSE (test code = 2217) 130 MG/DL BUN (test code = 2208) 23 MG/DL CREATININE (test code = 2214) 1.22 MG/DL eGFR AMER. (test code 49 ML/MIN/1.73 = 39660) eGFR NON- AMER. (test 42 ML/MIN/1.73 code = 43491) CALC BUN/CREAT (test code = 19 RATIO 2235) SODIUM (test code = 2231) 142 MEQ/L POTASSIUM (test code = 2228) 4.5 MEQ/L CHLORIDE (test code = 2215) 106 MEQ/L CARBON DIOXIDE (test code = 27 MEQ/L 2205) CALCIUM (test code = 2209) 9.5 MG/DL PROTEIN, TOTAL (test code = 6.0 G/DL 2228) ALBUMIN (test code = 2201) 3.9 G/DL CALC GLOBULIN (test code = 2.1 G/DL 2239) CALC A/G RATIO (test code = 1.9 RATIO 4) BILIRUBIN, TOTAL (test code = 0.4 MG/DL 2206) ALKALINE PHOSPHATASE (test 57 U/L code = 2204) AST (test code = 2218) 21 U/L ALT (test code = 2219) 15 U/L [id number] 00:00:00 Test Item Value Reference Range Interpretation Comments TSH, THIRD GENERATION (test code 0.646 UIU/ML = 2821) [id number] 00:00:00 Test Item Value Reference Range Interpretation Comments TSH, THIRD GENERATION (test code 0.646 UIU/ML = 2821) [id number] 00:00:00 Test Item Value Reference Range Interpretation Comments TSH, THIRD GENERATION (test code 0.646 UIU/ML = 2821) FREE T4 (THYROXINE)2020-03-15 00:00:00 Test Item Value Reference Range Interpretation Comments FREE T4 (THYROXINE) (test code = 1.74 NG/DL 2823) FREE T4 (THYROXINE)2020-03-15 00:00:00 Test Item Value Reference Range Interpretation Comments FREE T4 (THYROXINE) (test code = 1.74 NG/DL 2823) FREE T4 (THYROXINE)2020-03-15 00:00:00 Test Item Value Reference Range Interpretation Comments FREE T4 (THYROXINE) (test code = 1.74 NG/DL 2823) VITAMIN D, 25 [id number] 00:00:00 Test Item Value Reference Range Interpretation Comments VITAMIN D, 25 OH (test code = 4958) 38 NG/ML VITAMIN D, 25 [id number] 00:00:00 Test Item Value Reference Range Interpretation Comments VITAMIN D, 25 OH (test code = 4958) 38 NG/ML CBC W/AUTO DIFF WITH PLATELETS [ADDED]2020-03-15 00:00:00 Test Item Value Reference Range Interpretation Comments WBC (test code = 1001) 8.1 K/UL RBC (test code = 1002) 4.12 M/UL HEMOGLOBIN (test code = 1003) 12.6 G/DL HEMATOCRIT (test code = 1004) 37.7 % MCV (test code = 1005) 91.5 fL MCH (test code = 1006) 30.6 PG MCHC (test code = 1007) 33.4 G/DL RDW (test code = 1038) 13.0 % NEUTROPHILS (test code = 1008) 52.3 % LYMPHOCYTES (test code = 1010) 35.1 % MONOCYTES (test code = 1011) 9.6 % EOSINOPHILS (test code = 1012) 2.1 % BASOPHILS (test code = 1013) 0.9 % PLATELET COUNT (test code = 1015) 257 K/UL CBC W/AUTO DIFF WITH PLATELETS [ADDED]2020-03-15 00:00:00 Test Item Value Reference Range Interpretation Comments WBC (test code = 1001) 8.1 K/UL RBC (test code = 1002) 4.12 M/UL HEMOGLOBIN (test code = 1003) 12.6 G/DL HEMATOCRIT (test code = 1004) 37.7 % MCV (test code = 1005) 91.5 fL MCH (test code = 1006) 30.6 PG MCHC (test code = 1007) 33.4 G/DL RDW (test code = 1038) 13.0 % NEUTROPHILS (test code = 1008) 52.3 % LYMPHOCYTES (test code = 1010) 35.1 % MONOCYTES (test code = 1011) 9.6 % EOSINOPHILS (test code = 1012) 2.1 % BASOPHILS (test code = 1013) 0.9 % PLATELET COUNT (test code = 1015) 257 K/UL CBC W/AUTO DIFF WITH PLATELETS [ADDED]2020-03-15 00:00:00 Test Item Value Reference Range Interpretation Comments WBC (test code = 1001) 8.1 K/UL RBC (test code = 1002) 4.12 M/UL HEMOGLOBIN (test code = 1003) 12.6 G/DL HEMATOCRIT (test code = 1004) 37.7 % MCV (test code = 1005) 91.5 fL MCH (test code = 1006) 30.6 PG MCHC (test code = 1007) 33.4 G/DL RDW (test code = 1038) 13.0 % NEUTROPHILS (test code = 1008) 52.3 % LYMPHOCYTES (test code = 1010) 35.1 % MONOCYTES (test code = 1011) 9.6 % EOSINOPHILS (test code = 1012) 2.1 % BASOPHILS (test code = 1013) 0.9 % PLATELET COUNT (test code = 1015) 257 K/UL
--- NOTE | 2022-05-29 16:58 | RAD REPORT ---
EXAM DESCRIPTION: RAD - Wrist Left 3 View - 05/29/2022 4:52 pm CLINICAL HISTORY: PAIN COMPARISON: No comparisons FINDINGS/IMPRESSION: No acute fracture. No malalignment. Subchondral cystic changes are present with in the carpus and distal radius consistent with degenerative changes. Degenerative changes also prese nt the base of the thumb and at the STT joint.
--- NOTE | 2022-05-29 17:17 | ER ---
Nurse's Notes [facility] Name: Estefany Ryder Age: 81 yrs Sex: Female : 1940 Arrival Date: 05/29/2022 Time: 15:44 Bed IW2 Private MD: Diagnosis: Pain in left wrist Presentation: 05/29 16:11 Chief complaint: Patient states: L wrist pain that began 2-3 days ago. Coronavirus ss screen: Client denies travel out of the [place] in the last 14 days. Ebola Screen: Patient denies exposure to infectious person. Patient denies travel to an Ebola-affected area in the 21 days before illness onset. Initial Sepsis Screen: Does the patient meet any 2 criteria? No. Patient's initial sepsis screen is negative. Does the patient have a suspected source of infection? No. Patient's initial sepsis screen is negative. Risk Assessment: Do you want to hurt yourself or someone else? Patient reports no desire to harm self or others. Onset of symptoms was May 26, 2022. 16:11 Method Of Arrival: Ambulatory ss 16:11 Acuity: DERIK 4 ss Historical: - Allergies: 16:10 achromycin; ss 16:10 adenosine; ss 16:10 Advil; ss 16:10 Aleve; ss 16:10 amox TR K CLV; ss 16:10 Bactrim; ss 16:10 Biaxin; ss 16:10 caffeine; ss 16:10 Ceclor; ss 16:10 Cefaclor; ss 16:10 Cephalexin; ss 16:10 CEPHALOSPORINS; ss 16:10 chemical stress test; ss 16:10 Clarithromycin; ss 16:10 Codeine; ss 16:10 E.E.S. 400; ss 16:10 Erythromycin; ss 16:10 Flagyl; ss 16:10 fulvicin; ss 16:10 Ibuprofen; ss 16:10 Indocin; ss 16:10 Keflex; ss 16:10 keftab; ss 16:10 Maxitrol; ss 16:10 nalfon 600; ss 16:10 Naprosyn; ss 16:10 neodecadron opthalmic soln; ss 16:10 NSAIDS; ss 16:10 promine; ss 16:10 sodium pentaathol; ss 16:10 sumycin; ss 16:10 TETRACYCLINES; ss - PMHx: 16:10 BREAST CA; COPD; Lung CA; LYMPHOMA; ss Screenin:40 Abuse screen: Denies threats or abuse. Denies injuries from another. Nutritional ss screening: No deficits noted. Assessment: 17:40 General: Appears in no apparent distress. comfortable, Behavior is calm, cooperative. ss Pain: Complains of pain in left hand, L wrist. Neuro: Level of Consciousness is awake, alert, obeys commands, Oriented to person, place, time, situation. Respiratory: Airway is patent Respiratory effort is even, unlabored. Derm: Skin is intact, is healthy with good turgor, Skin is pink, warm \T\ dry. normal. Vital Signs: 16:11 BP 111 / 70; Pulse 106; Resp 18; Temp 98.6(TE); Pulse Ox 99% on R/A; Weight 51.71 kg; ss Height 5 ft. 2 in. (157.48 cm); Pain 10/10; 16:11 Body Mass Index 20.85 (51.71 kg, 157.48 cm) ED Course: 15:44 Patient arrived in ED. mr 16:06 Stevo Rizvi MD is Attending Physician. bs3 16:11 Arm band placed on right wrist. ss 16:12 Triage completed. ss 17:16 Charli Balderas MD is Referral Physician. bs3 17:40 Teri Madrid RN is Primary Nurse. ss 17:40 No provider procedures requiring assistance completed. Patient did not have IV access ss during this emergency room visit. Administered Medications: No medications were administered Outcome: 17:16 Discharge ordered by . bs3 17:40 Discharged to home ambulatory, with family. ss 17:40 Condition: good 17:40 Discharge instructions given to patient, family, Instructed on discharge instructions, follow up and referral plans. Demonstrated understanding of instructions, follow-up care. 17:41 Patient left the ED. Signatures: Kimberly Villela mr Teri Madrid, MICHEL RN Stevo Rizvi MD MD bs3
--- NOTE | 2022-05-29 17:17 | EDPHYS ---
Physician Documentation [facility] Name: Estefany Ryder Age: 81 yrs Sex: Female : 1940 Arrival Date: 05/29/2022 Time: 15:44 Bed IW2 Private MD: HERNANDO Physician Stevo Rizvi HPI: 05/29 16:14 This 81 yrs old Female presents to ER via Ambulatory with complaints of Hand bs3 Pain. 16:14 81-year-old female history of breast cancer, COPD, lung cancer, lymphoma presents with bs3 left wrist pain she notes that it started a couple days ago she thinks that she was lifting heavy garbage out of her house and may have injured it although she did not have pain at that time it started the day after she is taking Tylenol with some relief it also helps if she puts it in her wrist brace she denies any fevers or chills she denies any other trauma she notes that after she put on the wrist brace she has some swelling in her fingers no redness no warmth nothing else is bothering her. Historical: - Allergies: 16:10 achromycin; ss 16:10 adenosine; ss 16:10 Advil; ss 16:10 Aleve; ss 16:10 amox TR K CLV; ss 16:10 Bactrim; ss 16:10 Biaxin; ss 16:10 caffeine; ss 16:10 Ceclor; ss 16:10 Cefaclor; ss 16:10 Cephalexin; ss 16:10 CEPHALOSPORINS; ss 16:10 chemical stress test; ss 16:10 Clarithromycin; ss 16:10 Codeine; ss 16:10 E.E.S. 400; ss 16:10 Erythromycin; ss 16:10 Flagyl; ss 16:10 fulvicin; ss 16:10 Ibuprofen; ss 16:10 Indocin; ss 16:10 Keflex; ss 16:10 keftab; ss 16:10 Maxitrol; ss 16:10 nalfon 600; ss 16:10 Naprosyn; ss 16:10 neodecadron opthalmic soln; ss 16:10 NSAIDS; ss 16:10 promine; ss 16:10 sodium pentaathol; ss 16:10 sumycin; ss 16:10 TETRACYCLINES; ss - PMHx: 16:10 BREAST CA; COPD; Lung CA; LYMPHOMA; ss ROS: 16:14 Constitutional: Negative for fever, chills bs3 16:14 All other systems are negative. Exam: 16:14 Constitutional: This is a well developed, well nourished patient who is awake, alert, bs3 and in no acute distress. Head/Face: Normocephalic, atraumatic. Chest/axilla: Normal chest wall appearance and motion. Nontender with no deformity. No lesions are appreciated. Cardiovascular: Regular rate and rhythm with a normal S1 and S2. symmetric pulses in upper extremities Respiratory: Lungs have equal breath sounds bilaterally, clear to auscultation, no respiratory distress MS/ Extremity: Pulses equal, no cyanosis. Neurovascular intact. Full, normal range of motion., She is able to bend her wrist however she has exquisite pain even to light palpation, there is no significant erythema or swelling of the wrist, no rash Vital Signs: 16:11 BP 111 / 70; Pulse 106; Resp 18; Temp 98.6(TE); Pulse Ox 99% on R/A; Weight 51.71 kg; ss Height 5 ft. 2 in. (157.48 cm); Pain 10/10; 16:11 Body Mass Index 20.85 (51.71 kg, 157.48 cm) ss MDM: 16:06 Patient medically screened. bs3 16:14 Differential diagnosis: Possible fracture although less likely I considered septic bs3 joint however she has no significant swelling of the joint no erythema or warmth possible arthritis possible tendinitis she is very limited in terms of what pain management she can take we will get an x-ray and reassess. Data reviewed: vital signs, nurses notes. 17:15 Independent interpretation of the following test(s) in the Emergency Department X-Ray: bs3 My interpretation is No acute fracture. ED course: X-ray not consistent with fracture advised ice, compression follow-up with orthopedics unfortunately patient cannot take NSAIDs. 05/29 16:13 Order name: XRAY Wrist LEFT 3 view bs3 05/29 16:58 Order name: RAD; Complete Time: 17:14 EDMS Administered Medications: No medications were administered Disposition Summary: 05/29/22 17:16 Discharge Ordered Location: Home bs3 Condition: Stable bs3 Problem: new bs3 Symptoms: are unchanged bs3 Diagnosis - Pain in left wrist bs3 Followup: bs3 - With: Private Physician - When: 48 Hours - Reason: Re-evaluation by your physician Followup: bs3 - With: Charli Balderas MD - When: 2 - 3 days - Reason: Recheck today's complaints Discharge Instructions: - Discharge Summary Sheet bs3 - Arthritis bs3 - Wrist Pain, Adult bs3 - How to Use Cold Therapy, [id number] bs3 Forms: - Medication Reconciliation Form bs3 - Thank You Letter bs3 - Antibiotic Education bs3 - Prescription Opioid Use bs3 Signatures: Dispatcher [employer] Teri Carmona, MICHEL RN ss Stevo Rizvi MD MD bs3
[2022-05-29 17:53] VITALS: BP 111/70; TEMP 98.6; O2SAT 99
== END 2022-05-29 17:41 | disposition home or self-care (01) ==
LOC: ER 15:38
DX: M25.532 Pain in left wrist (principal); Z88.1 Allergy status to other antibiotic agents; Z88.3 Allergy status to other anti-infective agents; Z88.5 Allergy status to narcotic agent; Z88.6 Allergy status to analgesic agent; Z88.8 Allergy status to other drugs, medicaments and biological substances

== ENCOUNTER 2023-08-08 20:44 | Inpatient (IN) | payer OTHER ==
[2023-08-08] MEDS ORDERED: IPRATROPIUM BROM 0.5MG/2.5ML ONE (21:21)
[2023-08-08] MEDS ORDERED: METHYLPREDNISOLONE 125 MG INJ ONE (21:21)
[2023-08-08] MEDS ORDERED: FAMOTIDINE 20 MG/2 ML VIAL IV ONE (21:21)
[2023-08-08] MEDS ORDERED: LEVALBUTEROL 1.25 MG/3 ML NEB ONE (21:21)
[2023-08-08] MEDS ORDERED: NA CHLORIDE 0.9% 500 ML ONE (21:22)
[2023-08-08] MEDS ORDERED: Levofloxacin500mg IV 500 MG/100 ML BAG IV ONE (21:22)
[2023-08-08] MEDS ORDERED: NA CHLORIDE 0.9% 1,000 ML ONE (21:22)
--- NOTE | 2023-08-08 22:01 | RAD REPORT ---
EXAM DESCRIPTION: Jolie Single View08/08/2023 9:41 pm CLINICAL HISTORY: cough COMPARISON: 2019 FINDINGS: Postsurgical changes left lung with volume loss. Chronic opacification left lung apex may represent parenchymal/pulmonary scarring. Right upper lobe v olume loss is present The lungs appear clear of acute infiltrate. Heart is normal size
--- NOTE | 2023-08-08 22:33 | ER ---
Nurse's Notes [facility] Name: Estefany Ryder Age: 83 yrs Sex: Female : 1940 Arrival Date: 08/08/2023 Time: 20:44 Bed 15 Private MD: Diagnosis: COPD/ Chronic obstructive pulmonary disease with (acute) exacerbation;Dyspnea;Elevated white blood cell count Presentation: 08/07 20:56 Chief complaint: Patient states: SOB with left sided rib pain X3 days. Coronavirus lg3 screen: Client denies travel out of the [place] in the last 14 days. At this time, the client does not indicate any symptoms associated with coronavirus-19. Ebola Screen: No symptoms or risks identified at this time. Initial Sepsis Screen: Does the patient meet any 2 criteria? No. Patient's initial sepsis screen is negative. Does the patient have a suspected source of infection? No. Patient's initial sepsis screen is negative. Risk Assessment: Do you want to hurt yourself or someone else? Patient reports no desire to harm self or others. Onset of symptoms was August 05, 2023. 20:56 Method Of Arrival: EMS: [facility] lg3 20:56 Acuity: DERIK 3 lg3 Triage Assessment: 20:57 General: Appears in no apparent distress. uncomfortable, Behavior is calm, cooperative. lg3 Pain: Denies pain. EENT: No deficits noted. No signs and/or symptoms were reported regarding the EENT system. Neuro: No deficits noted. Chavez Agitation-Sedation Scale (RASS): 0 - Alert and Calm Level of Consciousness is awake, alert, obeys commands, Oriented to person, place, time, situation. Cardiovascular: Denies chest pain. Respiratory: Reports shortness of breath cough that is. GI: No deficits noted. No signs and/or symptoms were reported involving the gastrointestinal system. : No deficits noted. No signs and/or symptoms were reported regarding the genitourinary system. Derm: No deficits noted. No signs and/or symptoms reported regarding the dermatologic system. Skin is intact, is healthy with good turgor, Skin is dry, Skin is normal, Skin temperature is warm. Musculoskeletal: No deficits noted. No signs and/or symptoms reported regarding the musculoskeletal system. Circulation, motion, and sensation intact. Range of motion: intact in all extremities. Historical: - Allergies: 20:57 Ibuprofen; lg3 20:57 Indocin; lg3 20:57 Codeine; lg3 20:57 promine; lg3 20:57 E.E.S. 400; lg3 20:57 Nalfon; lg3 20:57 Adenosine; lg3 20:57 chemical stress test; lg3 20:57 caffeine; lg3 20:57 sodium pentathol; lg3 20:57 fulvicin; lg3 20:57 Naprosyn; lg3 20:57 Clarithromycin; lg3 20:57 sumycin; lg3 20:57 achromycin; lg3 20:57 Tetracycline; lg3 20:57 Biaxin; lg3 20:57 Keflex; lg3 20:57 ceftab; lg3 20:57 Erythromycin; lg3 20:57 Flagyl; lg3 20:57 neodecadron opth; lg3 20:57 Maxitrol; lg3 20:57 CEPHALOSPORINS; lg3 20:57 Ceclor; lg3 20:57 Cefaclor; lg3 20:57 cephalexin; lg3 20:57 amox TR-K CLV; lg3 20:57 Bactrim; lg3 20:57 NSAIDS; lg3 20:57 Advil; lg3 20:57 Motrin; lg3 20:57 Aleve; lg3 20:57 NYSTATIN; lg3 20:57 MAGNESIUM CITRATE; lg3 20:57 flugonazole; lg3 20:57 Omeprazole; lg3 20:57 pantoprazole; lg3 - Home Meds: 20:57 Advair Diskus 250-50 mcg/dose inhalation Blister, With Inhalation Device 1 inhalation 2 lg3 times per day [Active]; albuterol sulfate 2.5 mg/0.5 mL Inhl Solution for Nebulization [Active]; levothyroxine 100 mcg capsule daily [Active]; metoprolol succinate 25 mg oral Tablet, Extended Release 24 hr 1 tab 2 times per day [Active]; Spiriva with HandiHaler 18 mcg inhalation Capsule, With Inhalation Device daily [Active]; colloidal silver [Active]; - PMHx: 20:57 BREAST CA; COPD; Lung CA; LYMPHOMA; lg3 - PSHx: 20:57 right mastectomy (LYMPHOMA); left lobectomy (LYMPHOMA); Cholecystectomy; Total lg3 abdominal hysterectomy; - Immunization history:: Adult Immunizations up to date, Client reports having NOT received the Covid vaccine. Flu vaccine is not up to date. - Infectious Disease History:: Denies. - Social history:: Smoking status: Patient denies any tobacco usage or history of. Patient/guardian denies using alcohol, street drugs. - Family history:: not pertinent. Screenin:40 [facility] ED Fall Risk Assessment (Adult) History of falling in the last 3 months, cm10 including since admission No falls in past 3 months (0 pts) Confusion or Disorientation No (0 pts) Intoxicated or Sedated No (0 pts) Impaired Gait Yes (1 pt) Mobility Assist Device Used Yes (1 pt) Altered Elimination No (0 pt) Score/Fall Risk Level 0 - 2 = Low Risk Oriented to surroundings, Maintained a safe environment, Hourly rounding (assess needs \T\ fall precautionary measures) done. Abuse screen: Denies threats or abuse. Denies injuries from another. Nutritional screening: No deficits noted. Tuberculosis screening: No symptoms or risk factors identified. Assessment: 21:00 General: Appears in no apparent distress. comfortable, well groomed, well developed, pf1 Behavior is calm, cooperative, appropriate for age, quiet. 21:00 Pain: Complains of pain in left side rib cage pain Pain currently is 5 out of 10 on a pf1 pain scale. Neuro: No deficits noted. Level of Consciousness is awake, alert, obeys commands, Oriented to person, place, time, situation. Cardiovascular: Reports shortness of breath, Capillary refill < 3 seconds Patient's skin is warm and dry. Respiratory: Reports shortness of breath cough that is Airway is patent Respiratory effort is even, unlabored, Respiratory pattern is regular, symmetrical, Breath sounds with wheezes bilaterally. GI: No deficits noted. No signs and/or symptoms were reported involving the gastrointestinal system. : No deficits noted. No signs and/or symptoms were reported regarding the genitourinary system. EENT: No deficits noted. No signs and/or symptoms were reported regarding the EENT system. Derm: No deficits noted. No signs and/or symptoms reported regarding the dermatologic system. Musculoskeletal: Reports pain in left side rib cage pain. 22:00 Reassessment: Patient appears in no apparent distress at this time. Patient and/or pf1 family updated on plan of care and expected duration. Pain level reassessed. Patient is alert, oriented x 3, equal unlabored respirations, skin warm/dry/pink. 23:00 Reassessment: Patient appears in no apparent distress at this time. Patient and/or pf1 family updated on plan of care and expected duration. Pain level reassessed. Patient is alert, oriented x 3, equal unlabored respirations, skin warm/dry/pink. 08/08 00:00 Reassessment: Patient appears in no apparent distress at this time. Patient and/or pf1 family updated on plan of care and expected duration. Pain level reassessed. Patient is alert, oriented x 3, equal unlabored respirations, skin warm/dry/pink. 01:00 Reassessment: Patient appears in no apparent distress at this time. Patient and/or pf1 family updated on plan of care and expected duration. Pain level reassessed. Patient is alert, oriented x 3, equal unlabored respirations, skin warm/dry/pink. Patient states feeling better. Patient states symptoms have improved. Vital Signs: 08/07 20:56 BP 133 / 76; Pulse 133; Resp 19 S; Pulse Ox 100% on R/A; Weight 48.53 kg (R); Height 5 lg3 ft. 2 in. ; Pain 0/10; 22:00 BP 131 / 66; Pulse 121; Resp 23; Pulse Ox 98% ; pf1 23:00 BP 132 / 70; Pulse 121; Resp 24; Pulse Ox 98% on R/A; cm10 08/08 00:00 BP 117 / 63; Pulse 115; Resp 23; Pulse Ox 98% on R/A; Pain 0/10; pf1 01:00 BP 114 / 69; Pulse 109; Resp 22; Temp 98; Pulse Ox 98% on R/A; Pain 0/10; pf1 08/07 20:56 Body Mass Index 19.57 (48.53 kg, 157.48 cm) lg3 08/07 20:56 Pain Scale: Adult lg3 08/08 00:00 Pain Scale: Adult pf1 01:00 Pain Scale: Adult pf1 ED Course: 08/07 20:53 Patient arrived in ED. ty 20:57 Triage completed. lg3 20:57 Arm band placed on right wrist. lg3 21:00 Nirmal Orta MD is Attending Physician. henok 21:00 Door closed. Noise minimized. Warm blanket given. pf1 21:00 No provider procedures requiring assistance completed. EKG done, by ED staff, reviewed pf1 by Nirmal Orta MD. 21:43 XRAY Chest (1 view) In Process Unspecified. EDMS 22:10 Initial lab(s) drawn, by me, sent to lab. First set of blood cultures drawn by me. pf1 22:10 Inserted saline lock: 22 gauge in left antecubital area, using aseptic technique. Blood pf1 collected. 22:29 Sylvain Rush is Hospitalizing Provider. [facility] 22:30 Second set of blood cultures drawn by me. pf1 22:32 Lai Duffy MD is Hospitalizing Provider. henok 22:33 Ginny Kidd MD is Hospitalizing Provider. henok 22:53 SARS RAPID Sent. pf1 22:53 Flu Sent. pf1 22:53 COVID swab sent to lab. flu swab sent to lab. pf1 23:40 Patient has correct armband on for positive identification. Placed in gown. Bed in low cm10 position. Call light in reach. Side rails up X2. Provided Education on: Need for admit. 23:41 Patient admitted, IV remains in place. cm10 23:45 Report faxed at [phone]. Attempted to call for confirmation at [phone] with no answer. cm10 23:52 US Extremity Venous W Compression Noe In Process Unspecified. EDMS Administered Medications: 21:29 Drug: Levalbuterol Inhalation 2.5 mg Inhalation once Route: Inhalation; pf1 22:20 Follow up: Response: No adverse reaction; Marked relief of symptoms pf1 21:29 Drug: Ipratropium Inhalation Aerosol 0.5 mg Inhalation once Route: Inhalation; pf1 22:20 Follow up: Response: No adverse reaction; Marked relief of symptoms pf1 22:10 Drug: NS 0.9% IV 500 ml IV at bolus once Route: IV; Rate: bolus; Site: left antecubital;pf1 23:00 Follow up: Response: No adverse reaction; IV Status: Completed infusion; IV Intake: pf1 500ml 22:20 Drug: Famotidine IVP 20 mg IVP once; dilute with 10 mL 0.9% NaCl; give over 2 minutes pf1 Route: IVP; Site: left antecubital; 23:20 Follow up: Response: No adverse reaction pf1 22:40 Drug: MethylPrednisoLONE IVP 2 mg/kg IVP once Route: IVP; Site: left antecubital; pf1 23:40 Follow up: Response: No adverse reaction; Marked relief of symptoms pf1 22:40 Drug: levofloxacin IVPB 250 mg 50 ml IVPB once over 60 mins Volume: 50 ml; Route: IVPB; pf1 Infused Over: 60 mins; Site: left antecubital; 23:40 Follow up: Response: No adverse reaction; IV Status: Completed infusion; IV Intake: [id number] 08/08 00:00 Drug: NS 0.9% IV 1000 ml IV at 125 ml/hr continuous Route: IV; Rate: 125 ml/hr; Site: pf1 left antecubital; 01:28 Follow up: Response: No adverse reaction; Marked relief of symptoms; IV Status: pf1 Completed infusion Medication: 08/07 23:40 VIS not applicable for this client. cm10 Intake: 23:00 IV: 500ml; Total: 500ml. pf1 23:40 IV: 50ml; Total: 550ml. pf1 Outcome: 22:32 Decision to Hospitalize by Provider. henok 23:41 Admitted to Med/surg accompanied by tech, via stretcher, room 225, cm10 23:41 Condition: good 23:41 Instructed on the need for admit, 08/08 01:28 Patient left the ED. pf1 Signatures: Dispatcher [employer] EDNirmal Arellano MD MD cha Able, Lacie, RN RN lg3 Trudy Mo RN RN pf1 Gaby Bautista RN RN cm10 [place] Corrections: (The following items were deleted from the chart) 08/07 21:09 20:57 Allergies: Sodium Phosphate; lg3 lg3
--- NOTE | 2023-08-08 22:33 | EDPHYS ---
Physician Documentation [facility] Name: Estefany Ryder Age: 83 yrs Sex: Female : 1940 Arrival Date: 08/08/2023 Time: 20:44 Bed 15 Private MD: ED Physician Nirmal Orta HPI: 08/07 21:14 This 83 yrs old Female presents to ER via EMS with complaints of sob , henok wheezing. 21:14 The patient has shortness of breath at rest, with light activity. Onset: The henok symptoms/episode began/occurred 3 day(s) ago. Duration: The symptoms are continuous, and are steadily getting worse. The patient's shortness of breath is aggravated by coughing. The patient or guardian reports chest pain that is located primarily in the anterior chest wall, bilaterally. The patient presents to the emergency department with wheezing, Current therapy: albuterol nebs, that began without any particular precipitating event. Modifying factors: The symptoms are alleviated by nothing, the symptoms are aggravated by nothing. Historical: - Allergies: 20:57 Ibuprofen; lg3 20:57 Indocin; lg3 20:57 Codeine; lg3 20:57 promine; lg3 20:57 E.E.S. 400; lg3 20:57 Nalfon; lg3 20:57 Adenosine; lg3 20:57 chemical stress test; lg3 20:57 caffeine; lg3 20:57 sodium pentathol; lg3 20:57 fulvicin; lg3 20:57 Naprosyn; lg3 20:57 Clarithromycin; lg3 20:57 sumycin; lg3 20:57 achromycin; lg3 20:57 Tetracycline; lg3 20:57 Biaxin; lg3 20:57 Keflex; lg3 20:57 ceftab; lg3 20:57 Erythromycin; lg3 20:57 Flagyl; lg3 20:57 neodecadron opth; lg3 20:57 Maxitrol; lg3 20:57 CEPHALOSPORINS; lg3 20:57 Ceclor; lg3 20:57 Cefaclor; lg3 20:57 cephalexin; lg3 20:57 amox TR-K CLV; lg3 20:57 Bactrim; lg3 20:57 NSAIDS; lg3 20:57 Advil; lg3 20:57 Motrin; lg3 20:57 Aleve; lg3 20:57 NYSTATIN; lg3 20:57 MAGNESIUM CITRATE; lg3 20:57 flugonazole; lg3 20:57 Omeprazole; lg3 20:57 pantoprazole; lg3 - Home Meds: 20:57 Advair Diskus 250-50 mcg/dose inhalation Blister, With Inhalation Device 1 inhalation 2 lg3 times per day [Active]; albuterol sulfate 2.5 mg/0.5 mL Inhl Solution for Nebulization [Active]; levothyroxine 100 mcg capsule daily [Active]; metoprolol succinate 25 mg oral Tablet, Extended Release 24 hr 1 tab 2 times per day [Active]; Spiriva with HandiHaler 18 mcg inhalation Capsule, With Inhalation Device daily [Active]; colloidal silver [Active]; - PMHx: 20:57 BREAST CA; COPD; Lung CA; LYMPHOMA; lg3 - PSHx: 20:57 right mastectomy (LYMPHOMA); left lobectomy (LYMPHOMA); Cholecystectomy; Total lg3 abdominal hysterectomy; - Immunization history:: Adult Immunizations up to date, Client reports having NOT received the Covid vaccine. Flu vaccine is not up to date. - Infectious Disease History:: Denies. - Social history:: Smoking status: Patient denies any tobacco usage or history of. Patient/guardian denies using alcohol, street drugs. - Family history:: not pertinent. ROS: 21:14 Constitutional: Negative for fever, chills, and weight loss, Eyes: Negative for injury, henok pain, redness, and discharge, ENT: Negative for injury, pain, and discharge, Neck: Negative for injury, pain, and swelling, Abdomen/GI: Negative for abdominal pain, nausea, vomiting, diarrhea, and constipation, Back: Negative for injury and pain, : Negative for injury, bleeding, discharge, and swelling, MS/Extremity: Negative for injury and deformity, Skin: Negative for injury, rash, and discoloration, Neuro: Negative for headache, weakness, numbness, tingling, and seizure, Psych: Negative for depression, anxiety, suicide ideation, homicidal ideation, and hallucinations, Allergy/Immunology: Negative for hives, rash, and allergies, Endocrine: Negative for neck swelling, polydipsia, polyuria, polyphagia, and marked weight changes, Hematologic/Lymphatic: Negative for swollen nodes, abnormal bleeding, and unusual bruising, 21:14 Cardiovascular: Positive for palpitations, 21:14 Respiratory: Positive for cough, wheezing, inspiratory, expiratory, Exam: 21:14 Constitutional: This is a well developed, well nourished patient who is awake, alert, henok and in no acute distress. Head/Face: Normocephalic, atraumatic. Eyes: Pupils equal round and reactive to light, extra-ocular motions intact. Lids and lashes normal. Conjunctiva and sclera are non-icteric and not injected. Cornea within normal limits. Periorbital areas with no swelling, redness, or edema. ENT: Nares patent. No nasal discharge, no septal abnormalities noted. Tympanic membranes are normal and external auditory canals are clear. Oropharynx with no redness, swelling, or masses, exudates, or evidence of obstruction, uvula midline. Mucous membranes moist. Neck: Trachea midline, no thyromegaly or masses palpated, and no cervical lymphadenopathy. Supple, full range of motion without nuchal rigidity, or vertebral point tenderness. No Meningismus. Chest/axilla: Normal chest wall appearance and motion. Nontender with no deformity. No lesions are appreciated. Abdomen/GI: Soft, non-tender, with normal bowel sounds. No distension or tympany. No guarding or rebound. No evidence of tenderness throughout. Back: No spinal tenderness. No costovertebral tenderness. Full range of motion. Female : Normal external genitalia. Skin: Warm, dry with normal turgor. Normal color with no rashes, no lesions, and no evidence of cellulitis. MS/ Extremity: Pulses equal, no cyanosis. Neurovascular intact. Full, normal range of motion. Neuro: Awake and alert, GCS 15, oriented to person, place, time, and situation. Cranial nerves II-XII grossly intact. Motor strength 5/5 in all extremities. Sensory grossly intact. Cerebellar exam normal. Normal gait. Psych: Awake, alert, with orientation to person, place and time. Behavior, mood, and affect are within normal limits. 21:14 Cardiovascular: Rate: tachycardic, actual rate is 133 bpm, Rhythm: regular, Pulses: Pulses are 4+ in bilateral radial, brachial, femoral, popliteal, posterior tibial and and dorsalis pedis arteries.. Heart sounds: normal, Edema: is not appreciated, JVD: is not appreciated, 21:14 ECG was reviewed by the Attending Physician. Vital Signs: 20:56 BP 133 / 76; Pulse 133; Resp 19 S; Pulse Ox 100% on R/A; Weight 48.53 kg (R); Height 5 lg3 ft. 2 in. ; Pain 0/10; 22:00 BP 131 / 66; Pulse 121; Resp 23; Pulse Ox 98% ; pf1 23:00 BP 132 / 70; Pulse 121; Resp 24; Pulse Ox 98% on R/A; cm10 08/08 00:00 BP 117 / 63; Pulse 115; Resp 23; Pulse Ox 98% on R/A; Pain 0/10; pf1 01:00 BP 114 / 69; Pulse 109; Resp 22; Temp 98; Pulse Ox 98% on R/A; Pain 0/10; pf1 08/07 20:56 Body Mass Index 19.57 (48.53 kg, 157.48 cm) 3 08/07 20:56 Pain Scale: Adult lg3 08/08 00:00 Pain Scale: Adult pf1 01:00 Pain Scale: Adult pf1 MDM: 08/07 21:00 Patient medically screened. henok 21:21 Differential diagnosis: asthma, Bronchitis CHF exacerbation, Chronic Obstructive henok Pulmonary Disease acute asthma, reactive airway, URI, pneumonia, Pneumothorax pulmonary edema, Pulmonary Embolism reactive airway disease, Sepsis Unstable Angina. Antibiotic administration: Levaquin given. HEART Score: History: Slightly Suspicious (0), ECG: Non specific repolarization disturbance / LBTB / PM (1), Age: > or = 65 years (2), Risk Factors: 1 or 2 risk factors (1), [+ Family HX] Troponin: < or = 1 x Normal Limit (0). The patient was not given aspirin in the Emergency Department. Differential Diagnosis: Obstructed Airway Bronchitis Influenza Upper Respiratory Infection Sinusitis Pharyngitis Asthma Exacerbation Pneumonia. Immunization status: Pneumococcal vaccine: within last 5 years. Influenza vaccine: within last 5 years. Data reviewed: vital signs, nurses notes, lab test result(s), EKG, radiologic studies, plain films. Consideration of Admission/Observation Patient was admitted/placed on observation. Escalation of care including admission/observation considered. I considered the following discharge prescriptions or medication management in the emergency department Medications were administered in the Emergency Department. See 21:10 Order name: ABG 08/07 21:10 Order name: Basic Metabolic Panel; Complete Time: 23:04 [facility] 08/07 21:10 Order name: CBC with Diff; Complete Time: 22:48 [facility] 08/07 21:10 Order name: LFT's; Complete Time: 23:04 [facility] 08/07 21:10 Order name: Magnesium; Complete Time: 23:04 [facility] 08/07 21:10 Order name: NT PRO-BNP; Complete Time: 23:04 [facility] 08/07 21:10 Order name: PT-INR; Complete Time: 22:48 08/07 21:10 Order name: Troponin HS; Complete Time: 23:04 [facility] 08/07 21:10 Order name: Blood Culture Adult (2) 08/07 21:10 Order name: Lactate w/ 2H reflex if indic.; Complete Time: 23:04 [facility] 08/07 21:10 Order name: D-Dimer; Complete Time: 22:48 [facility] 08/07 22:24 Order name: Flu [facility] 08/07 22:24 Order name: SARS RAPID; Complete Time: 23:04 [facility] 08/07 23:11 Order name: CBC with Automated Diff [facility] 08/07 23:11 Order name: CBC with Automated Diff [facility] 08/07 23:11 Order name: Comprehensive Metabolic Panel [facility] 08/07 23:11 Order name: Comprehensive Metabolic Panel [facility] 08/07 23:11 Order name: Troponin High Sensitivity [facility] 08/07 23:11 Order name: Troponin High Sensitivity [facility] 08/07 21:10 Order name: XRAY Chest (1 view); Complete Time: 22:14 [facility] 08/07 22:49 Order name: US Extremity Venous W Compression Noe 08/07 21:10 Order name: Cardiac monitoring; Complete Time: 21:16 [facility] 08/07 21:10 Order name: EKG - Nurse/Tech; Complete Time: 21:16 [facility] 08/07 21:10 Order name: IV Saline Lock; Complete Time: 22:54 [facility] 08/07 21:10 Order name: Labs collected and sent; Complete Time: 22:54 [facility] 08/07 21:10 Order name: O2 Per Protocol; Complete Time: 21:16 [facility] 08/07 21:10 Order name: O2 Sat Monitoring; Complete Time: 21:16 [facility] EC:14 Rate is 109 beats/min. Rhythm is regular. QRS [place] is Normal. MT interval is normal. henok QRS interval is normal. QT interval is normal. No Q waves. T waves are Normal. No ST changes noted. Clinical impression: Sinus tachycardia and No evidence of ischemia. Administered Medications: 21:29 Drug: Levalbuterol Inhalation 2.5 mg Inhalation once Route: Inhalation; pf1 22:20 Follow up: Response: No adverse reaction; Marked relief of symptoms pf1 21:29 Drug: Ipratropium Inhalation Aerosol 0.5 mg Inhalation once Route: Inhalation; pf1 22:20 Follow up: Response: No adverse reaction; Marked relief of symptoms pf1 22:10 Drug: NS 0.9% IV 500 ml IV at bolus once Route: IV; Rate: bolus; Site: left antecubital;pf1 23:00 Follow up: Response: No adverse reaction; IV Status: Completed infusion; IV Intake: pf1 500ml 22:20 Drug: Famotidine IVP 20 mg IVP once; dilute with 10 mL 0.9% NaCl; give over 2 minutes pf1 Route: IVP; Site: left antecubital; 23:20 Follow up: Response: No adverse reaction pf1 22:40 Drug: MethylPrednisoLONE IVP 2 mg/kg IVP once Route: IVP; Site: left antecubital; pf1 23:40 Follow up: Response: No adverse reaction; Marked relief of symptoms pf1 22:40 Drug: levofloxacin IVPB 250 mg 50 ml IVPB once over 60 mins Volume: 50 ml; Route: IVPB; pf1 Infused Over: 60 mins; Site: left antecubital; 23:40 Follow up: Response: No adverse reaction; IV Status: Completed infusion; IV Intake: [id number] 08/08 00:00 Drug: NS 0.9% IV 1000 ml IV at 125 ml/hr continuous Route: IV; Rate: 125 ml/hr; Site: pf1 left antecubital; 01:28 Follow up: Response: No adverse reaction; Marked relief of symptoms; IV Status: pf1 Completed infusion Disposition Summary: 08/08/23 22:32 Hospitalization Ordered Notes: Hospitalization Status: Inpatient Admission henok Location: Telemetry/[facility] [place] (Inpatient) henok Condition: Stable henok Problem: new henok Symptoms: have improved henok Bed/Room Type: Standard henok Provider: Ginny Kidd(08/08/23 22:33) henok Room Assignment: 225(08/08/23 23:23) Diagnosis - COPD/ Chronic obstructive pulmonary disease with (acute) exacerbation henok - Dyspnea henok - Elevated white blood cell count henok Forms: - Medication Reconciliation Form henok - SBAR form henok - Leadership Thank You Letter [facility] Signatures: Dispatcher [employer] EDMS Nirmal Orta MD MD cha Garcia, Cindy, MICHEL RN cg Lori Chapa RN RN lg3 Trudy Mo RN RN pf1 Corrections: (The following items were deleted from the chart) 08/07 21:09 20:57 Allergies: Sodium Phosphate; lg3 lg3 21:11 21:11 BASIC METABOLIC PANEL+C.LAB.BRZ ordered. EDMS EDMS 21:11 21:11 CBC+H.LAB.BRZ ordered. EDMS EDMS 21:11 21:11 HEPATIC FUNCTION+C.LAB.BRZ ordered. EDMS EDMS 21:11 21:11 MAGNESIUM+C.LAB.BRZ ordered. EDMS EDMS 21:11 21:11 PROBNP+C.LAB.BRZ ordered. EDMS EDMS 21:11 21:11 PROTIME (+INR)+COAG.LAB.BRZ ordered. EDMS EDMS 21:11 21:11 Troponin High Sensitivity+C.LAB.BRZ ordered. EDMS EDMS 21:11 21:11 BLOOD CULTURE*+BA.LAB.BRZ ordered. EDMS EDMS 21:11 21:11 LACTATE+C.LAB.BRZ ordered. EDMS EDMS 21:11 21:11 D-DIMER+COAG.LAB.BRZ ordered. EDMS EDMS 22:33 22:32 Sylvain Rush [facility] 23:23 22:32 [facility] 08/08 00:07 08/07 22:50 Chest For PE Angio+CT.RAD.BRZ ordered. EDMS EDMS
[2023-08-08 22:35] LABS: Absolute Basophils 0.1 K/uL (0-0.5); Absolute Lymphocytes (CBC) 3.3 K/uL (0.7-4.9); Absolute Monocytes 1.4 K/uL (0.1-1.3); Absolute Neutrophil 9.2 K/uL (1.8-8.0); Basophils % 0.5 % (0-1.3); Eosinophils % 0.3 % (0-4.4); Hematocrit 35.9 % (36.0-45.0); Hemoglobin 11.9 g/dL (12.0-15.0); Lymphocytes % 23.5 % (15.3-44.8); MCH 30.2 pg (27.0-35.0); MCHC 33.1 g/dL (32.0-36.0); MCV 91.1 fL (80-100); MPV 7.2 fL (7.6-11.3); Monocytes % 9.9 % (3.3-12.3); Neutrophils % 65.8 % (41.7-73.7); Nucleated Red Blood Cells % 0.1 % (0-0); Platelets 247 thou/uL (152-406); RBC Red Blood Cell Count 3.94 M/uL (3.86-4.86); Red Cell Distribution Width 13.7 % (12.1-15.2)
[2023-08-08 22:37] LABS: PT Prothrombin Time 11.2 SECONDS (9.5-12.5); Protime INR 1.02
[2023-08-08 22:53] LABS: Albumin 2.9 g/dL (3.4-5.0); Albumin/Globulin Ratio 0.7 (1.1-1.8); Anion Gap 8.7 mEq/L (5.0-15.0); Bilirubin Direct 0.1 mg/dL (0-0.2); Bilirubin Indirect, Calculated 0.3 mg/dL (0.2-0.8); Bilirubin Total 0.4 mg/dL (0.2-1.0); Globulin 3.9 g/dL (2.3-3.5); Magnesium 2.2 mg/dL (1.6-2.4); Potassium 3.7 mEq/L (3.5-5.1); Protein, Total 6.8 g/dL (6.4-8.2)
--- NOTE | 2023-08-08 23:01 | P.HP ---
Certification for Inpatient Patient admitted to: Inpatient With expected LOS: >2 Midnights Patient will require the following post-hospital care: None Practitioner: I am a practitioner with admitting privileges, knowledge of patient current condition, hospital course, and medical plan of care. Services: Services provided to patient in accordance with Admission requirements found in Title 42 Section 412.3 of the Code of Federal Regulations Patient History Date of Service: 08/09/23 Reason for admission: Shortness of breath History of Present Illness: 83-year-old female with history of lung cancer status post lobectomy, breast cancer s/p mastectomy , lymphoma , follos with MD Pizarro , history of COPD, CHF diastolic dysfunction, CKD stage III with baseline eGFR at 46MLSmin ; presenting with bodyaches runny nose cough as well as shortness of breath initially on exertion but not at rest. She also admits to some wheezing. She denies any fever or chills She denies any cough contact On arrival in the ED vital signs were stable afebrile. Chest x-ray shows post lung surgical changes there is no acute infiltrate or pulmonary edema. proBNP was elevated at 1297, D-dimer elevated at 998. She denies any chest pain. WBC elevated at 14,000 with mild left shift, BMP was unremarkable except for creatinine of 1.08 She has been admitted for COPD exacerbation Allergies adenosine Allergy (Verified 07/22/20 07:55) Rash caffeine Allergy (Verified 07/22/20 07:55) Rash cefaclor Allergy (Verified 07/22/20 07:55) Rash cephalexin Allergy (Verified 07/22/20 07:55) Rash Cephalosporins Allergy (Verified 07/22/20 07:55) Rash clarithromycin Allergy (Verified 07/22/20 07:55) Rash codeine Allergy (Verified 07/22/20 07:55) Rash dexamethasone [From Maxitrol] Allergy (Verified 07/22/20 07:55) Rash erythromycin base Allergy (Verified 07/22/20 07:55) Rash ibuprofen Allergy (Verified 07/22/20 07:55) Rash indomethacin [From Indocin] Allergy (Verified 07/22/20 07:55) Rash metronidazole [From Flagyl] Allergy (Verified 07/22/20 07:55) Rash naproxen [From Naprosyn] Allergy (Verified 07/22/20 07:55) Rash neomycin [From Maxitrol] Allergy (Verified 07/22/20 07:55) Rash NSAIDS (Non-Steroidal Anti-Inflamma Allergy (Verified 07/22/20 07:55) Rash polymyxin B [From Maxitrol] Allergy (Verified 07/22/20 07:55) Rash Sulfa (Sulfonamide Antibiotics) Allergy (Verified 07/22/20 07:55) Rash tetracycline [From Sumycin] Allergy (Verified 07/22/20 07:55) Rash Tetracyclines Allergy (Verified 07/22/20 07:55) Rash amox tr-k clv 500-125 Allergy (Uncoded 07/22/20 07:55) Rash Chemical stress test Allergy (Uncoded 07/22/20 07:55) Rash EES 400 Allergy (Uncoded 07/22/20 07:55) Rash fulvicin Allergy (Uncoded 07/22/20 07:55) Rash naflon 600 Allergy (Uncoded 07/22/20 07:55) Rash neodecadron ophthalmic soln Allergy (Uncoded 07/22/20 07:55) Rash promine Allergy (Uncoded 07/22/20 07:55) Rash Sodium pentathol Allergy (Uncoded 07/22/20 07:55) Rash Home Medications: Albuterol Inhaler [Ventolin Inhaler*] 2 puff IH Q6H PRN #1 hfa.aer.ad 07/22/20 Albuterol Sulfate [Albuterol Sulfate 0.083% Neb Soln] 2.5 mg IH PRN PRN 07/22/20 Balanced Essentials 1 tab PO PRN PRN 07/22/20 Colloidal Silver 2 - 4 oz PO TID 07/22/20 Wilberto's 100% Aloe Vera 4.5 misc PO DAILY 07/22/20 Levofloxacin [Levaquin] 500 mg PO DAILY #7 tablet 07/22/20 Levothyroxine Sodium 100 mcg PO DAILY 07/22/20 Metoprolol Succinate [Toprol Xl*] 25 mg PO BID 07/22/20 Multivitamin 1 each PO DAILY 07/22/20 Nutribiotic Defense Plus Vegan 250 mg PO DAILY 07/22/20 Tiotropium [Spiriva Handihaler*] 18 mcg IH BEDTIME 07/22/20 predniSONE [Prednisone*] 20 mg PO BID #11 tab 04/10/21 Furosemide [Lasix] 40 mg PO DAILY 30 Days #30 tab 07/23/20 - Past Medical/Surgical History Has patient received pneumonia vaccine in the past: No Diabetic: No -: Breast cancer -: Lymphoma -: Lung cancer -: COPD -: Lobectomy -: R breast mastectomy - Social History Smoking Status: Former smoker Smoking therapy provided: No Alcohol use: No CD- Drugs: No Place of Residence: Home Physical Examination - Physical Exam General: Alert, Oriented x3, Acute distress HEENT: Atraumatic, Normocephalic, PERRLA Neck: 2+ carotid pulse no bruit, No Thyromegaly Respiratory: Normal air movement, Expiratory wheezes Cardiovascular: Normal pulses, Regular rate/rhythm, Normal S1 S2 Gastrointestinal: Normal bowel sounds, Soft and benign, Non-distended Musculoskeletal: No clubbing, No swelling Neurological: Normal speech, Normal strength at 5/5 x4 extr, Normal tone External genitalia: No edema, No lesions - Studies Laboratory Data (last 24 hrs) 08/08/23 08/08/23 08/08/23 22:22 22:22 22:22 WBC 14.10 H Hgb 11.9 L Hct 35.9 L Plt Count 247 PT 11.2 INR 1.02 Sodium 138 Potassium 3.7 BUN 20 H Creatinine 1.08 H Glucose 144 H Magnesium 2.2 Total Bilirubin 0.4 AST 47 H ALT 46 Alkaline Phosphatase 70 Assessment and Plan - Problems (Diagnosis) (1) Acute exacerbation of CHF (congestive heart failure) Current Visit: No Status: Acute (2) Acute exacerbation of COPD with asthma Current Visit: No Status: Acute - Plan Impression Acute COPD exacerbation Elevated D-dimer Hypertension History of diastolic CHF History of breast cancer History of lung cancer status post lobectomy CKD -3 A - stable PLAN Will admit to inpatient IV steroids/DuoNeb/antitussives Mild leukocytosis, follow blood culture Start empirical antibiotics with Rocephin Wean O2 as tolerated Given elevated proBNP with dose Lasix 40 mg IV x 1 today No clinical indication for pulmonary embolism but will consider if worsening shortness of breath despite nebs and plan for CT angiogram Mild creatinine elevation, follow trend Subcutaneous Lovenox for DVT prophylaxis Possible hospital stay for 24 to 48 hours Discharge Plan: Home - Advance Directives Does patient have a Living Will: No Does patient have a Durable POA for Healthcare: No - Code Status/Comfort Care Code Status Assessed: Yes Code Status: Full Code
[2023-08-08 23:03] LABS: SARS-CoV-2 Antigen CONTROL BLUE LINE VIS/BG OK; SARS-CoV-2 Antigen Rapid Res Negative (Negative)
[2023-08-08] MEDS ORDERED: MORPHINE 2 MG/ML SYR IV PRN (23:05)
[2023-08-08] MEDS ORDERED: ONDANSETRON 4 MG/2 ML VIAL IV PRN (23:05)
[2023-08-08] MEDS ORDERED: ACETAMINOPHEN 500 MG TAB PO PRN (23:05)
[2023-08-08] MEDS ORDERED: Oxycodone HCl/Acetaminophen 5/325 MG TAB PO PRN (23:10)
[2023-08-08] MEDS: FUROSEMIDE 40 MG/4 ML VIAL IV ONE (23:10)
[2023-08-08] MEDS: MAGNESIUM SULFATE 1 gm IVPB 1 GM/100 ML BAG IV ONE (23:10)
[2023-08-08] MEDS ORDERED: HYDRALAZINE HCL 20 MG/ML VIAL IV PRN (23:10)
[2023-08-08 23:56] LABS: Blood Gas Oxyhemoglobin 92.6 % (94-97); Blood O2 Saturation 95.1 % (92-98.5)
[2023-08-08 23:57] LABS: Arterial Blood Carboxyhemoglob 1.1 % (0-1.5)
[2023-08-09] MEDS: METHYLPREDNISOLONE 125 MG INJ IV SCH
[2023-08-09] MEDS: IPRATROPIUM BROM 0.5MG/2.5ML NEB SCH (01:00)
[2023-08-09] MEDS: FUROSEMIDE 20 MG/ 2ML VIAL ONE (02:24)
[2023-08-09 02:28] VITALS: BMI 19.6
[2023-08-09] MEDS: GUAIFENESIN 600 MG SA TAB PO SCH (02:35)
[2023-08-09] MEDS: MAGNESIUM SULFATE 1 gm IVPB 1 GM/100 ML BAG IV ONE (02:43)
[2023-08-09 03:05] LABS: Absolute Lymphocytes (CBC) 0.4 K/uL (0.7-4.9); Absolute Monocytes 0.3 K/uL (0.1-1.3); Absolute Neutrophil 10.3 K/uL (1.8-8.0); Basophils % 0.1 % (0-1.3); Hematocrit 34.4 % (36.0-45.0); Lymphocytes % 3.8 % (15.3-44.8); MCH 29.7 pg (27.0-35.0); MCHC 32.1 g/dL (32.0-36.0); MCV 92.4 fL (80-100); MPV 7.9 fL (7.6-11.3); Monocytes % 2.4 % (3.3-12.3); Neutrophils % 93.7 % (41.7-73.7); Platelets 217 thou/uL (152-406); RBC Red Blood Cell Count 3.72 M/uL (3.86-4.86); Red Cell Distribution Width 13.6 % (12.1-15.2)
[2023-08-09 03:19] LABS: Albumin 2.6 g/dL (3.4-5.0); Albumin/Globulin Ratio 0.7 (1.1-1.8); Anion Gap 8.8 mEq/L (5.0-15.0); Bilirubin Total 0.4 mg/dL (0.2-1.0); Globulin 3.6 g/dL (2.3-3.5); Potassium 3.8 mEq/L (3.5-5.1); Protein, Total 6.2 g/dL (6.4-8.2); Troponin High Sensitivity 6.3 pg/mL (<58.9)
--- NOTE | 2023-08-09 07:58 | P.PN ---
Date of Service: 08/09/23 Subjective: seen by chinese language professor in office ~2 weeks ago. reports heart cath planned in the near future after her chinese language professor comes back from vacation. +told she needs aortic valve replaced reports back pain / soreness. feels difficulty breathing / hard to catch her breath when laying on her left side ambulating around the floor with RW earlier today reports HR always runs high felt breathing was better earlier this morning, now worsened ROS: 10 point ROS as noted above, otherwise negative Physical Exam: GEN: Alert, oriented, short of breath HEENT: Normal conjunctiva, sclera anicteric CV: Sinus tachycardia, no edema Pulm: mildly labored respirations on room air, tachypneic, slight expiratory wheeze ABD: Soft, nontender, nondistended Neuro: Normal speech, normal affect vitals reviewed Problem List: Acute on chronic COPD exacerbation Elevated D-dimer Chronic diastolic CHF Hypertension CKD 3A hx lung cancer s/p left lobectomy (2014) hx breast cancer s/p right mastectomy hx lymphoma s/p radiation Acute COPD exacerbation Elevated D-dimer Chronic diastolic CHF Reports dyspnea at rest, worse with light exertion, left sided rib pain, cough/wheeze, body aches for ~3 days. Denies fever/chills seen by chinese language professor in office ~2 weeks ago. reports heart cath planned in the near future after her chinese language professor comes back from vacation. +told she needs aortic valve replaced CXR (08/08): chronic opacification left lung apex may represent parenchymal/pulm scarring. No acute infiltrate Venous u/s (08/07): no DVT in either lower extremities. Small left renner cyst ([id number]) BNP 1297, D-dimer elevated 998, +leukocytosis 14.1 -> 11 (08/08) Given IV steroids and Levaquin in ED continue IV steroids, nebs, antitussives PRN analgesics / antiemetics Follow blood cultures AST/ALT mildly elevated 08/08 pulm consulted Unable to get CTA to r/o PE - patient reports was told at [facility] could not take contrast. will obtain CT chest for further evaluation given her ongoing symptoms last had CT chest ~2 yrs ago at [facility] per patient, due for repeat soon for monitoring hopefully can get OSH records to compare no evidence of infection, antibiotics dc'd Hypertension confirm home meds PRN IV hydralazine for now CKD 3A stable. Continue to monitor renal function hx lung cancer s/p left lobectomy hx breast cancer s/p right mastectomy hx lymphoma follows with MD troncoso confirm home meds, restart as appropriate continue supportive care VTE: Lovenox Code: Full Dispo: ~1-2 days
[2023-08-09] MEDS: ENOXAPARIN 40 MG/0.4 ML SQ SCH (08:46)
[2023-08-09] MEDS: ASPIRIN EC 81 MG TAB PO SCH (08:46)
[2023-08-09] MEDS: ZINC SULFATE 220 MG CAP PO SCH (08:49)
--- NOTE | 2023-08-09 11:01 | P.CNS ---
Date of Consult: 08/09/23 Reason for Consult: COPD exacerbation Chief Complaint: Shortness of breath History of Present Illness: Patient is 83 years of age developed some chest discomfort on the left side of the chest radiating to the back worsening dyspnea does have a history of COPD following up at [facility] s/p left upper lobe lobectomy for lung cancer in 2014 quit smoking in 1977. Worsening dyspnea and chest congestion uses a Spiriva inhaler at home feeling a lot better since admission Allergies adenosine Allergy (Verified 07/22/20 07:55) Rash caffeine Allergy (Verified 07/22/20 07:55) Rash cefaclor Allergy (Verified 07/22/20 07:55) Rash cephalexin Allergy (Verified 07/22/20 07:55) Rash Cephalosporins Allergy (Verified 07/22/20 07:55) Rash clarithromycin Allergy (Verified 07/22/20 07:55) Rash codeine Allergy (Verified 07/22/20 07:55) Rash dexamethasone [From Maxitrol] Allergy (Verified 07/22/20 07:55) Rash erythromycin base Allergy (Verified 07/22/20 07:55) Rash ibuprofen Allergy (Verified 07/22/20 07:55) Rash indomethacin [From Indocin] Allergy (Verified 07/22/20 07:55) Rash metronidazole [From Flagyl] Allergy (Verified 07/22/20 07:55) Rash naproxen [From Naprosyn] Allergy (Verified 07/22/20 07:55) Rash neomycin [From Maxitrol] Allergy (Verified 07/22/20 07:55) Rash NSAIDS (Non-Steroidal Anti-Inflamma Allergy (Verified 07/22/20 07:55) Rash polymyxin B [From Maxitrol] Allergy (Verified 07/22/20 07:55) Rash Sulfa (Sulfonamide Antibiotics) Allergy (Verified 07/22/20 07:55) Rash tetracycline [From Sumycin] Allergy (Verified 07/22/20 07:55) Rash Tetracyclines Allergy (Verified 07/22/20 07:55) Rash amox tr-k clv 500-125 Allergy (Uncoded 07/22/20 07:55) Rash Chemical stress test Allergy (Uncoded 07/22/20 07:55) Rash EES 400 Allergy (Uncoded 07/22/20 07:55) Rash fulvicin Allergy (Uncoded 07/22/20 07:55) Rash naflon 600 Allergy (Uncoded 07/22/20 07:55) Rash neodecadron ophthalmic soln Allergy (Uncoded 07/22/20 07:55) Rash promine Allergy (Uncoded 07/22/20 07:55) Rash Sodium pentathol Allergy (Uncoded 07/22/20 07:55) Rash Home Medications: Albuterol Inhaler [Ventolin Inhaler*] 2 puff IH Q6H PRN #1 hfa.aer.ad 07/22/20 Albuterol Sulfate [Albuterol Sulfate 0.083% Neb Soln] 2.5 mg IH PRN PRN 07/22/20 Balanced Essentials 1 tab PO PRN PRN 07/22/20 Colloidal Silver 2 - 4 oz PO TID 07/22/20 Wilberto's 100% Aloe Vera 4.5 misc PO DAILY 07/22/20 Levofloxacin [Levaquin] 500 mg PO DAILY #7 tablet 07/22/20 Levothyroxine Sodium 100 mcg PO DAILY 07/22/20 Metoprolol Succinate [Toprol Xl*] 25 mg PO BID 07/22/20 Multivitamin 1 each PO DAILY 07/22/20 Nutribiotic Defense Plus Vegan 250 mg PO DAILY 07/22/20 Tiotropium [Spiriva Handihaler*] 18 mcg IH BEDTIME 07/22/20 predniSONE [Prednisone*] 20 mg PO BID #11 tab 07/22/20 Furosemide [Lasix] 40 mg PO DAILY 30 Days #30 tab 07/23/20 - Past Medical/Surgical History Diabetic: No -: Breast cancer -: Lymphoma -: Lung cancer -: COPD -: Lobectomy -: R breast mastectomy -: Hysterectomy -: Cholecystectomy -: Cataract sx igor - Family History Father Medical History: Heart disease Mother Medical History: Lung disease Notes: emphysema - Social History Alcohol use: No CD- Drugs: No Caffeine use: Yes Place of Residence: Home Review of Systems 10-point ROS is otherwise unremarkable Respiratory: Shortness of Breath Physical Examination Temp Pulse Resp BP Pulse Ox 97.6 F 97 H 18 138/69 97 08/09/23 08:00 08/09/23 08:00 08/09/23 08:00 08/09/23 08:00 08/09/23 08:00 General: Alert, Oriented x3 Respiratory: Clear to auscultation bilaterally, Diminished Cardiovascular: No edema, Regular rate/rhythm Gastrointestinal: Normal bowel sounds, Soft and benign Integumentary: No rashes, No breakdown Neurological: Normal gait, Normal speech Laboratory Data (last 24 hrs) 08/08/23 08/08/23 08/08/23 22:22 22:22 22:22 WBC 14.10 H Hgb 11.9 L Hct 35.9 L Plt Count 247 PT 11.2 INR 1.02 Sodium 138 Potassium 3.7 BUN 20 H Creatinine 1.08 H Glucose 144 H Magnesium 2.2 Total Bilirubin 0.4 AST 47 H ALT 46 Alkaline Phosphatase 70 - Problems (1) COPD exacerbation Current Visit: Yes Status: Acute Plan: Patient is 83 years of age admitted with presumed COPD exacerbation uses Spiriva at home post left upper lobe lobectomy for lung cancer that was in was in 2014 talking in 1977 and is doing better rule out thromboembolism chemistries all reviewed patient is feeling better possible discharge today on prednisone 20 mg twice a day for a week of significant diarrhea after antibiotics x-ray is otherwise clear p.o. prednisone vital signs able
[2023-08-09] MEDS: ALBUTEROL 2.5 MG/3 ML NEB SOL NEB SCH (14:04)
[2023-08-09] MEDS: FUROSEMIDE 20 MG TABLET PO ONE (14:33)
--- NOTE | 2023-08-09 15:41 | RAD REPORT ---
EXAM DESCRIPTION: CT - Thorax Wo Con CLINICAL HISTORY: Chest pain hypoxia, h/o lung cancer, s.p lobectomy, chf COMPARISON: No comparisons FINDINGS: The lungs are emphysematous. Postsurgical changes are present with scarring in the right p arahilar region. Focally prominent soft tissue is seen right suprahilar location measuring 2 cm. Post surgical scarring is present left upper lobe. Esophagus is mildly dilated. Trace left pleural effusio n. No pneumothorax. A few mildly prominent lymph nodes are seen in the mediastinum. No lytic or blastic bone lesion. 2 cm left adrenal mass, nonspecific. All CT scans are performed using dose optimization technique as appropriate and may include automated exposure control or mA/KV adjustment according to patient size. IMPRESSION: Postsurgical changes are present with right suprahilar soft tissue density measuring 2 c m. This could be related to scarring however cannot exclude recurrent or residual neoplasia.Follow-up nonemergent PET-CT would be recommended. Nonspecific 2 cm left adrenal mass, MRI adrenal protocol could provide further information. Trace left pleural effusion.
[2023-08-09] MEDS: BENZONATATE 100 MG CAP PO PRN (20:43)
[2023-08-09] MEDS: DULERA 100/5 (MOMETASONE/FORMOTEROL) INHALER IH SCH (20:43)
[2023-08-09] MEDS: predniSONE 20 MG TAB PO SCH (20:44)
[2023-08-09] MEDS: TIOTROPIUM 5 SPRAYS/INHALER IH SCH (21:00)
[2023-08-09] MEDS ORDERED: Levofloxacin 250mg IV 250 MG/50 ML BAG IV SCH (21:30)
[2023-08-10] MEDS: DIGOXIN 0.25 MG TABLET PO SCH (02:34)
[2023-08-10] MEDS: DIGOXIN 0.25 MG TABLET PO ONE (02:48)
--- NOTE | 2023-08-10 02:50 | P.PN ---
Date of Service: 08/10/23 Patient with COPD exacerbation noted with persistent tachycardia, EKG shows A- fib/SVT at rate of 4 140s, patient is asymptomatic denies any palpitation. States she has an extensive cardiac history is on follow-up with Dr. Dwyer, she is scheduled for cardiac cath when Dr. Lozada returns next week. Digoxin 0.25 mics given, heart rate 1 SVT now and down to 100, will continue to monitor obtain magnesium TSH levels
[2023-08-10 03:14] LABS: Absolute Monocytes 1.4 K/uL (0.1-1.3); Absolute Neutrophil 14.2 K/uL (1.8-8.0); Basophils % 0.2 % (0-1.3); Hematocrit 34.2 % (36.0-45.0); Lymphocytes % 6.1 % (15.3-44.8); MCH 29.5 pg (27.0-35.0); MCHC 32.3 g/dL (32.0-36.0); MCV 91.3 fL (80-100); MPV 7.8 fL (7.6-11.3); Monocytes % 8.2 % (3.3-12.3); Neutrophils % 85.5 % (41.7-73.7); Platelets 258 thou/uL (152-406); RBC Red Blood Cell Count 3.74 M/uL (3.86-4.86); Red Cell Distribution Width 13.7 % (12.1-15.2)
[2023-08-10 03:36] LABS: Albumin 2.6 g/dL (3.4-5.0); Albumin/Globulin Ratio 0.7 (1.1-1.8); Anion Gap 7.7 mEq/L (5.0-15.0); Bilirubin Total 0.2 mg/dL (0.2-1.0); Globulin 3.6 g/dL (2.3-3.5); Magnesium 2.1 mg/dL (1.6-2.4); Potassium 3.7 mEq/L (3.5-5.1); Protein, Total 6.2 g/dL (6.4-8.2)
[2023-08-10 03:40] LABS: Magnesium 2.1 mg/dL (1.6-2.4); Thyroid Stimulating Hormone 0.008 uIU/mL (0.358-3.740); Troponin High Sensitivity 6.7 pg/mL (<58.9)
[2023-08-10] MEDS: LEVOTHYROXINE SOD 0.112 MG TAB PO SCH (06:10)
[2023-08-10 07:43] LABS: T3 Free 1.46 pg/mL (2.18-3.98)
[2023-08-10] MEDS ORDERED: MORPHINE 4 MG/ML SYR IV PRN (08:13)
[2023-08-10] MEDS ORDERED: HOME MED 1 EA UNK (Levothyroxine Sodium [Levothyroxine Sodium] 100 MCG Capsule) PO SCH (09:00)
--- NOTE | 2023-08-10 09:48 | P.PN ---
Subjective Date of Service: 08/10/23 Chief Complaint: COPD exacerbation Subjective: Improving (Patient is improving doing better apparently developed A- fib) Review of Systems General: Weakness Respiratory: Shortness of Breath Physical Examination - Vital Signs Temperature: 97.8 F Blood Pressure: 124/69 Pulse: 99 Respirations: 14 Pulse Ox (%): 97 - Physical Exam General: Alert, Oriented x3 Neck: Supple Respiratory: Clear to auscultation bilaterally Cardiovascular: No edema, Regular rate/rhythm, Normal S1 S2 Assessment And Plan - Current Problems (Diagnosis) (1) COPD exacerbation Current Visit: Yes Status: Acute Plan: Patient is 83 years of age admitted with COPD exacerbation doing much better CT scan report IMPRESSION: Postsurgical changes are present with right suprahilar soft tissue density measuring 2 cm. This could be related to scarring however cannot exclude recurrent or residual neoplasia.Follow-up nonemergent PET-CT would be recommended. Nonspecific 2 cm left adrenal mass, MRI adrenal protocol could provide further information. Trace left pleural effusion Patient has been followed up at [facility] will have to obtain previous CT scan reports normality of the right hilum noted she had a lobectomy done on the left side clearly volume loss on the left side does take Advair and Spiriva at home The patient is in appears to be in sinus rhythm she was seen by cardiology here in [place] failed stress test and was scheduled to have an outpatient cardiac cath with the patient she developed A-fib during the surgery Will discharge on beta-blockers Eliquis dose prednisone Will follow-up in my office regarding the abnormal CT scan changes obtain records from [facility] regarding the hilar change
--- NOTE | 2023-08-10 10:59 | P.PN ---
Date of Service: 08/10/23 Subjective: converted into a-fib overnight. Patient reports she thinks she may have been told she might have been in a-fib when getting outpatient stress test few weeks ago felt short of breath when ambulating to bathroom this morning converted back into normal sinus rhythm with HR in 90s this morning NPO at midnight for tentative heart cath tomorrow ROS: 10 point ROS as noted above, otherwise negative Physical Exam: GEN: Alert, oriented, short of breath HEENT: Normal conjunctiva, sclera anicteric CV: Sinus tachycardia, no edema Pulm: mildly labored respirations on room air, tachypneic, slight expiratory wheeze ABD: Soft, nontender, nondistended Neuro: Normal speech, normal affect vitals reviewed Problem List: Acute on chronic COPD exacerbation Elevated D-dimer Chronic diastolic CHF Hypertension CKD 3A hx lung cancer s/p left lobectomy (2014) hx breast cancer s/p right mastectomy hx lymphoma s/p radiation Acute COPD exacerbation Elevated D-dimer Chronic diastolic CHF Reports dyspnea at rest, worse with light exertion, left sided rib pain, cough/wheeze, body aches for ~3 days. Denies fever/chills seen by light industrial supervisor in office ~2 weeks ago. reports heart cath planned in the near future after her light industrial supervisor comes back from vacation. +told she needs aortic valve replaced NPO at midnight for tentative heart cath tomorrow CXR (08/08): chronic opacification left lung apex may represent parenchymal/pulm scarring. No acute infiltrate Venous u/s (08/07): no DVT in either lower extremities. Small left renner cyst ([id number]) BNP 1297, D-dimer elevated 998, +leukocytosis 14.1 -> 11 (08/08) Given IV steroids and Levaquin in ED continue IV steroids, nebs, antitussives PRN analgesics / antiemetics Follow blood cultures AST/ALT mildly elevated 08/08 pulm consulted Unable to get CTA to r/o PE - patient reports was told at [facility] could not take contrast. Obtained OSH records. CT without contrast (08/08) with similar findings / mass size compared to CT ~2 years ago no evidence of infection, antibiotics dc'd Paroxysmal a-fib, new onset Patient converted into a-fib overnight. Reports she thinks she may have been told she might have been in a-fib when getting outpatient stress test few weeks ago. otherwise has never been told she had a-fib. converted back into normal sinus rhythm with HR in 90s this morning Cardiology consulted NPO at midnight for tentative heart cath tomorrow Start cardizem 120 mg PO daily CHADSVASc elevated; will need eliquis - start after cath Hypertension confirm home meds PRN IV hydralazine for now CKD 3A stable. Continue to monitor renal function hx lung cancer s/p left lobectomy hx breast cancer s/p right mastectomy hx lymphoma follows with [facility] confirm home meds, restart as appropriate continue supportive care VTE: Lovenox Code: Full Dispo: ~1-2 days
--- NOTE | 2023-08-10 11:55 | RAD REPORT ---
EXAM DESCRIPTION: Extrem Venous W Compress Noe US Bilateral Lower Extremity Venous Duplex Doppler CLINICAL HISTORY: Pain. COMPARISON: None TECHNIQUE: Grayscale, color Doppler, duplex Doppler, spectral Doppler images and analysis with compr ession and augmentation of right and left lower extremity veins. FINDINGS: Right and Left common femoral, greater saphenous, femoral, deep (profunda) femoral, poplit eal, posterior tibial veins unremarkable without evidence of clot. Left popliteal elongated anechoic lesion measuring 27 x 5 x 20 mm. IMPRESSION: 1. No sonographic evidence of right or left lower extremity DVT. 2. Small left popliteal (Caruso) cyst. Electronically signed by: Chapo Medrano MD 08/09/2023 12:27 AM CDT Due to temporary technical issues with the PACS/Fluency reporting system, reports are being signed by the in house radiologists without review as a courtesy to insure prompt reporting. The interpreting radiologist is fully responsible for the content of the report.
[2023-08-10] MEDS: DILTIAZEM HCL 120 MG SR CAP PO SCH (11:57)
--- NOTE | 2023-08-10 12:24 | P.CNS ---
Date of Consult: 08/10/23 Chief Complaint: COPD exacerbation History of Present Illness: Patient with PMH of atrial fibrillation, lung cancer s/p resection, COPD presented with worsening SOB and significant BROWN, patient also report occasional chest pressure sensation left sided radiate to the back, she did outpatient stress test and she failed it. Allergies adenosine Allergy (Verified 07/22/20 07:55) Rash caffeine Allergy (Verified 07/22/20 07:55) Rash cefaclor Allergy (Verified 07/22/20 07:55) Rash cephalexin Allergy (Verified 07/22/20 07:55) Rash Cephalosporins Allergy (Verified 07/22/20 07:55) Rash clarithromycin Allergy (Verified 07/22/20 07:55) Rash codeine Allergy (Verified 07/22/20 07:55) Rash dexamethasone [From Maxitrol] Allergy (Verified 07/22/20 07:55) Rash erythromycin base Allergy (Verified 07/22/20 07:55) Rash ibuprofen Allergy (Verified 07/22/20 07:55) Rash indomethacin [From Indocin] Allergy (Verified 07/22/20 07:55) Rash metronidazole [From Flagyl] Allergy (Verified 07/22/20 07:55) Rash naproxen [From Naprosyn] Allergy (Verified 07/22/20 07:55) Rash neomycin [From Maxitrol] Allergy (Verified 07/22/20 07:55) Rash NSAIDS (Non-Steroidal Anti-Inflamma Allergy (Verified 07/22/20 07:55) Rash polymyxin B [From Maxitrol] Allergy (Verified 07/22/20 07:55) Rash Sulfa (Sulfonamide Antibiotics) Allergy (Verified 07/22/20 07:55) Rash tetracycline [From Sumycin] Allergy (Verified 07/22/20 07:55) Rash Tetracyclines Allergy (Verified 07/22/20 07:55) Rash amox tr-k clv 500-125 Allergy (Uncoded 07/22/20 07:55) Rash Chemical stress test Allergy (Uncoded 07/22/20 07:55) Rash EES 400 Allergy (Uncoded 07/22/20 07:55) Rash fulvicin Allergy (Uncoded 07/22/20 07:55) Rash naflon 600 Allergy (Uncoded 07/22/20 07:55) Rash neodecadron ophthalmic soln Allergy (Uncoded 07/22/20 07:55) Rash promine Allergy (Uncoded 07/22/20 07:55) Rash Sodium pentathol Allergy (Uncoded 07/22/20 07:55) Rash Home Medications: Albuterol Inhaler [Ventolin Inhaler*] 2 puff IH Q6H PRN #1 hfa.aer.ad 07/22/20 Albuterol Sulfate [Albuterol Sulfate 0.083% Neb Soln] 2.5 mg IH PRN PRN 07/22/20 Balanced Essentials 1 tab PO PRN PRN 07/22/20 Colloidal Silver 2 - 4 oz PO TID 07/22/20 Levothyroxine Sodium 112 mcg PO DAILY 07/22/20 Tiotropium [Spiriva Handihaler*] 18 mcg IH BEDTIME 07/22/20 Furosemide [Lasix] 40 mg PO DAILY 30 Days #30 tab 07/23/20 Ascorbic Acid [Vitamin C] 1,000 mg PO DAILY 08/09/23 Cholecalciferol (Vitamin D3) [Vitamin D 5,000 IU Cap*] 1 cap PO DAILY 08/09/23 - Past Medical/Surgical History Diabetic: No -: Breast cancer -: Lymphoma -: Lung cancer -: COPD -: Lobectomy -: R breast mastectomy -: Hysterectomy -: Cholecystectomy -: Cataract sx igor - Family History Father Medical History: Heart disease Mother Medical History: Lung disease Notes: emphysema - Social History Alcohol use: No CD- Drugs: No Caffeine use: Yes Place of Residence: Home Review of Systems 10-point ROS is otherwise unremarkable Physical Examination Temp Pulse Resp BP Pulse Ox 97.8 F 78 14 144/78 H 97 08/10/23 09:50 08/10/23 11:57 08/10/23 09:50 08/10/23 11:57 08/10/23 09:50 General: Alert, Oriented x3 HEENT: Atraumatic Neck: Supple Respiratory: Expiratory wheezes Cardiovascular: No edema, Normal S1 S2 Gastrointestinal: Normal bowel sounds - Problems (1) Atrial fibrillation Current Visit: Yes Status: Acute Plan: patient is in sinus rhythm now Start Diltazem 120 mg daily patient will also need to be on Eliquis 5 mg po BID (to be started tomorrow after heart cath). (2) Chest pain Current Visit: Yes Status: Acute Plan: concern for angina with abnormal outpatient stress test Cath in am, keep NPO after midnight. (3) Acute exacerbation of CHF (congestive heart failure) Current Visit: No Status: Acute Plan: looks euvolemic on exam continue home lasix of 40 mg daily.
[2023-08-10] MEDS: ALBUTEROL 2.5 MG/3 ML NEB SOL NEB PRN (20:44)
[2023-08-10] MEDS: IPRATROPIUM BROM 0.5MG/2.5ML NEB PRN (20:45)
[2023-08-11 06:30] LABS: Absolute Monocytes 0.6 K/uL (0.1-1.3); Absolute Neutrophil 9.6 K/uL (1.8-8.0); Hematocrit 34.1 % (36.0-45.0); Hemoglobin 11.3 g/dL (12.0-15.0); Lymphocytes % 9.1 % (15.3-44.8); MCH 30.3 pg (27.0-35.0); MCHC 33.2 g/dL (32.0-36.0); MCV 91.2 fL (80-100); MPV 7.3 fL (7.6-11.3); Monocytes % 5.1 % (3.3-12.3); Neutrophils % 85.8 % (41.7-73.7); Nucleated Red Blood Cells % 0.1 % (0-0); Platelets 310 thou/uL (152-406); RBC Red Blood Cell Count 3.74 M/uL (3.86-4.86); Red Cell Distribution Width 13.4 % (12.1-15.2)
[2023-08-11 06:42] LABS: Albumin 2.7 g/dL (3.4-5.0); Anion Gap 5.3 mEq/L (5.0-15.0); Magnesium 2.4 mg/dL (1.6-2.4); Potassium 4.3 mEq/L (3.5-5.1)
--- NOTE | 2023-08-11 09:49 | P.PN ---
Subjective Date of Service: 08/11/23 Chief Complaint: COPD exacerbation Subjective: No new changes (feels better today.) Review of Systems 10-point ROS is otherwise unremarkable Physical Examination - Vital Signs Temperature: 97.3 F Blood Pressure: 133/65 Pulse: 79 Respirations: 16 Pulse Ox (%): 96 - Physical Exam General: Alert, Oriented x3 HEENT: Atraumatic Neck: Supple Respiratory: Clear to auscultation bilaterally Cardiovascular: No edema, Normal S1 S2 Gastrointestinal: Normal bowel sounds Assessment And Plan - Current Problems (Diagnosis) (1) Atrial fibrillation Current Visit: Yes Status: Acute Plan: patient is in sinus rhythm now continue Diltazem 120 mg daily patient will also need to be on Eliquis 5 mg po BID (to be started tomorrow after heart cath). (2) Chest pain Current Visit: Yes Status: Acute Plan: concern for angina with abnormal outpatient stress test Cath today. (3) Acute exacerbation of CHF (congestive heart failure) Current Visit: No Status: Acute Plan: looks euvolemic on exam continue home lasix of 40 mg daily.
[2023-08-11 10:20] LABS: Blood Morphology Comment NOT SEEN (NOT SEEN); Platelet Estimate ADEQ; White Blood Cell Scan OK (OK)
--- NOTE | 2023-08-11 13:02 | EKG ---
Test Date: 2023-08-08 Test Time: 21:00:34 Straw Hat Brim Cutter Operator: SOPHIE MEASUREMENT RESULTS: Intervals: Rate: 109 IN: 156 QRSD: 94 QT: 312 QTc: 420 Lawn: P: 86 IN: 156 QRS: 22 T: 82 INTERPRETIVE STATEMENTS: Sinus tachycardia Otherwise normal ECG Compared to ECG 07/22/2020 20:30:23 Ventricular premature complex(es) no longer present Electronically Signed On 08-11-23 12:56:12 CDT by Lacho Dwyer
[2023-08-11] MEDS ORDERED: HEPA 1000U/500MLS 2,000 UNIT/1,000 ML BAG IV ONE (13:49)
[2023-08-11] MEDS ORDERED: LIDOCAINE 1% 20 ML MDV ONE (13:50)
[2023-08-11] MEDS ORDERED: VERAPAMIL HCL 10 MG/4 ML VIAL IV ONE (13:50)
[2023-08-11] MEDS ORDERED: HEPARIN 5000 UNIT/ML 1 ML VIAL ONE (13:51)
[2023-08-11] MEDS ORDERED: HEPARIN 10,000 UNIT/10 ML VIAL IV ONE (13:51)
[2023-08-11] MEDS ORDERED: ATROPINE SULF 1 MG/10 ML SYR IV ONE (13:51)
[2023-08-11] MEDS ORDERED: FENTANYL CITR 100 MCG/2 ML ONE (13:53)
[2023-08-11] MEDS ORDERED: MIDAZOLAM HCL 2 MG/2 ML INJ ONE (13:54)
[2023-08-11] MEDS ORDERED: NA CHLORIDE 0.9% 500 ML ONE (13:59)
[2023-08-11] MEDS ORDERED: DIPHENHYDRAMINE 50 MG/ML VIAL ONE (14:42)
[2023-08-11] MEDS ORDERED: METHYLPREDNISOLONE 125 MG INJ ONE (14:42)
--- NOTE | 2023-08-11 22:21 | OP ---
Date of Procedure: 08/11/2023 Surgeon: GEORGINA KUMAR Procedures Performed: 1.Selective coronary angiogram. 2.Left heart catheterization. Indication: Unstable angina. Access: Right radial artery 6-Australian, closed with TR band. Complications: None. Bleeding: Less than 50 mL. Description Of Procedure: After risks, benefits, and alternatives were explained, the patient agreed to procedure and signed informed consent. The patient was brought into cardiac catheterization [facility], prepped and draped in usual sterile fashion. Then, I accessed right radial artery using pedi atric micropuncture kit and placed a 6-Australian Slender sheath and took 5-Australian Aultman 4 catheter into the aortic root and engaged left main and right coronary artery, took standard views, and then crosse d the aortic valve using JR4 catheter and J-wire and measured the LVEDP. Pullback did not record any significant gradient. I removed the catheter and the sheath and placed TR band with good hemostasis . Findings: 1.Left main is normal. 2.LAD normal. Normal diagonal branches. 3.Left circumflex is normal. 4.RCA; proximal 40%, rest of it is normal. It is large, dominant. 5.LVEDP elevated at 18 mmHg. 6.Gradient across aortic valve is 9 mmHg. Conclusion: Mild nonobstructive coronary artery disease and aortic valve stenosis is not significant . Plan: Medical management. SR/MODL Voice ID: [id number] Report ID: [id number]
[2023-08-12] MEDS: METOPROLOL TAR 25 MG TAB PO SCH (00:14)
[2023-08-12] MEDS: METOPROLOL TARTRATE 5 MG/5 ML INJ IV STA (02:09)
--- NOTE | 2023-08-12 07:51 | P.PN ---
Date of Service: 08/11/23 Subjective: remains in sinus breathing improved this morning - less dyspneic when ambulating in room npo for cath ROS: 10 point ROS as noted above, otherwise negative Physical Exam: GEN: Alert, oriented, NAD HEENT: Normal conjunctiva, sclera anicteric CV: Sinus tachycardia, no edema Pulm: non-labored respirations on room air, tachypneic, slight expiratory wheeze ABD: Soft, nontender, nondistended Neuro: Normal speech, normal affect vitals reviewed Problem List: Acute on chronic COPD exacerbation Elevated D-dimer Chronic diastolic CHF Hypertension CKD 3A hx lung cancer s/p left lobectomy (2014) hx breast cancer s/p right mastectomy hx lymphoma s/p radiation Acute COPD exacerbation Elevated D-dimer Chronic diastolic CHF Reports dyspnea at rest, worse with light exertion, left sided rib pain, cough/wheeze, body aches for ~3 days. Denies fever/chills seen by religious studies professor in office ~2 weeks ago. reports heart cath planned in the near future after her religious studies professor comes back from vacation. +told she needs aortic valve replaced NPO at midnight for tentative heart cath tomorrow CXR (08/08): chronic opacification left lung apex may represent parenchymal/pulm scarring. No acute infiltrate Venous u/s (08/07): no DVT in either lower extremities. Small left renner cyst ([id number]) BNP 1297, D-dimer elevated 998, +leukocytosis 14.1 -> 11 (08/08) Given IV steroids and Levaquin in ED continue IV steroids, nebs, antitussives PRN analgesics / antiemetics Follow blood cultures AST/ALT mildly elevated 08/08 pulm consulted Unable to get CTA to r/o PE - patient reports was told at [facility] could not take contrast. Obtained OSH records. CT without contrast (08/08) with similar findings / mass size compared to CT ~2 years ago no evidence of infection, antibiotics dc'd - discussed with pulm suspect COPD exacerbation and paroxysmal afib leading to her symptoms Paroxysmal a-fib, new onset Patient converted into a-fib overnight. Reports she thinks she may have been told she might have been in a-fib when getting outpatient stress test few weeks ago. otherwise has never been told she had a-fib. converted back into normal sinus rhythm with HR in 90s this morning Cardiology consulted NPO for cath today Start cardizem 120 mg PO daily CHADSVASc elevated; will need eliquis - start after cath Hypertension confirm home meds PRN IV hydralazine for now CKD 3A stable. Continue to monitor renal function hx lung cancer s/p left lobectomy hx breast cancer s/p right mastectomy hx lymphoma follows with [facility] confirm home meds, restart as appropriate continue supportive care VTE: Lovenox Code: Full Dispo: ~1-2 days
[2023-08-12 09:04] VITALS: BP 133/62; TEMP 97.1
[2023-08-12 10:32] VITALS: O2SAT 95
--- NOTE | 2023-08-12 12:20 | P.PN ---
Subjective Date of Service: 08/12/23 Chief Complaint: COPD exacerbation Subjective: No new changes Review of Systems 10-point ROS is otherwise unremarkable Physical Examination - Vital Signs Temperature: 97.1 F Blood Pressure: 133/62 Pulse: 78 Respirations: 16 Pulse Ox (%): 95 - Physical Exam General: Alert, Oriented x3 HEENT: Atraumatic Neck: Supple Respiratory: Clear to auscultation bilaterally Cardiovascular: No edema, Normal S1 S2 Gastrointestinal: Normal bowel sounds Assessment And Plan - Current Problems (Diagnosis) (1) Atrial fibrillation Current Visit: Yes Status: Acute Plan: patient is in sinus rhythm now continue Diltazem 120 mg daily Eliquis 5 mg po BID. (2) Chest pain Current Visit: Yes Status: Acute Plan: Patient had a coronary angiogram done that shows mild Non obstructive CAD Continue medical management. (3) Acute exacerbation of CHF (congestive heart failure) Current Visit: No Status: Acute Plan: looks euvolemic on exam continue home lasix of 40 mg daily.
--- NOTE | 2023-08-12 12:30 | P.PN ---
Subjective Date of Service: 08/12/23 Chief Complaint: COPD exacerbation Subjective: Improving (Patient is improving her A-fib seems to be under control recent cardiac cath) Review of Systems General: Weakness Respiratory: Shortness of Breath Physical Examination - Vital Signs Temperature: 97.1 F Blood Pressure: 133/62 Pulse: 78 Respirations: 16 Pulse Ox (%): 95 - Physical Exam General: Alert, Oriented x3 Respiratory: Clear to auscultation bilaterally, Normal air movement Cardiovascular: No edema, Normal pulses Assessment And Plan - Current Problems (Diagnosis) (1) COPD exacerbation Current Visit: Yes Status: Acute Plan: Patient is doing better A-fib seems to be under control with diltiazem recent cardiac cath no significant coronary artery disease Patient to be started on anticoagulation plan for discharge on her usual inhalers and low-dose prednisone/patient's white count is declined/discharged home on low-dose prednisone 10 mg twice a day for a week follow-up with me in 2 weeks IMPRESSION: Postsurgical changes are present with right suprahilar soft tissue density measuring 2 cm. This could be related to scarring however cannot exclude recurrent or residual neoplasia.Follow-up nonemergent PET-CT would be recommended. Nonspecific 2 cm left adrenal mass, MRI adrenal protocol could provide further information. Trace left pleural effusion P
--- NOTE | 2023-08-12 13:31 | P.DS ---
Admission Date: 08/08/23 Discharge Date: 08/12/23 Disposition: ROUTINE DISCHARGE Discharge Condition: FAIR Reason for Admission: COPD exacerbation Hospital Course: Patient presented with worsening dyspnea, wheeze, cough, and was found to have an acute COPD exacerbation complicated by new onset paroxysmal a-fib. Chest x- ray noted chronic opacification left lung apex may represent parenchymal/pulm scarring without evidence of acute infiltrate. Venous ultrasound was negative for DVT. Patient received steroids, nebs, antitussives and had improvement of her symptoms. D-dimer was elevated 998 however unable to get CTA to rule out PE as patient reports she was told at [facility] she could not take contrast. CT without contrast with right suprahilar soft tissue density (2 cm), nonspecific 2 cm left adrenal mass, findings similar to her CT approximately 2 years ago at [facility]. Diagnosis Acute on chronic COPD exacerbation Elevated D-dimer Chronic diastolic CHF Hypertension CKD 3A hx lung cancer s/p left lobectomy (2014) hx breast cancer s/p right mastectomy hx lymphoma s/p radiation During her hospitalization, Patient converted into new onset a-fib 08/08-08/09 overnight. On further discussion patient reports she thinks she may have been told she might have been in a-fib when getting outpatient stress test few weeks ago, otherwise has never been told she had a-fib. Cardiology was consulted and recommended cardizem. Patient also placed on Eliquis . Cardiology Dr. Dwyer performed cardiac catheterization and patient found to have mild non-obstructive coronary artery disease. Medical management was recommended. Patient was seen in consultation by pulmonary Dr. Armas for COPD exacerbation. She was on steroids for COPD exacerbation. Dr. Armas recommended 1 week of low-dose prednisone on discharge. Patient is currently in sinus rhythm. She had intermittent A-fib during the night. Heart rate is being controlled with Cardizem and metoprolol. Patient is clinically improved and deemed stable for discharge. Follow-up with pulmonary Dr. Armas and cardiology Dr. Dwyer recommended. Vital Signs/Physical Exam: Temp Pulse Resp BP Pulse Ox 97.1 F 78 16 133/62 95 08/12/23 12:29 08/12/23 12:29 08/12/23 12:29 08/12/23 12:29 08/12/23 12:29 General: Alert, In no apparent distress, Oriented x3 HEENT: Mucous membr. moist/pink Neck: Supple, JVD not distended Respiratory: Clear to auscultation bilaterally, Normal air movement Cardiovascular: No edema, Regular rate/rhythm, Normal S1 S2 Gastrointestinal: Normal bowel sounds, Soft and benign, Non-distended, No tenderness Musculoskeletal: No swelling Integumentary: No rashes, No cyanosis Neurological: Normal speech, Normal strength at 5/5 x4 extr Laboratory Data at Discharge: WBC 11.20 thou/uL (4.3-10.9) H 08/11/23 06:05 Hgb 11.3 g/dL (12.0-15.0) L 08/11/23 06:05 Hct 34.1 % (36.0-45.0) L 08/11/23 06:05 Plt Count 310 thou/uL (152-406) 08/11/23 06:05 PT 11.2 SECONDS (9.5-12.5) 08/08/23 22:22 INR 1.02 08/08/23 22:22 Sodium 138 mEq/L (136-145) 08/11/23 06:05 Potassium 4.3 mEq/L (3.5-5.1) D 08/11/23 06:05 BUN 38 mg/dL (7-18) H 08/11/23 06:05 Creatinine 1.01 mg/dL (0.55-1.02) 08/11/23 06:05 Glucose 138 mg/dL (74-106) H 08/11/23 06:05 Phosphorus 3.0 mg/dL (2.5-4.9) 08/11/23 06:05 Magnesium 2.4 mg/dL (1.6-2.4) 08/11/23 06:05 Total Bilirubin 0.2 mg/dL (0.2-1.0) 08/10/23 02:49 AST 33 U/L (15-37) 08/10/23 02:49 ALT 60 U/L (13-56) H 08/10/23 02:49 Alkaline Phosphatase 63 U/L (45-117) 08/10/23 02:49 Home Medications: Albuterol Inhaler [Ventolin Inhaler*] 2 puff IH Q6H PRN #1 hfa.aer.ad 07/22/20 Albuterol Sulfate [Albuterol Sulfate 0.083% Neb Soln] 2.5 mg IH PRN PRN 07/22/20 Balanced Essentials 1 tab PO PRN PRN 07/22/20 Colloidal Silver 2 - 4 oz PO TID 07/22/20 Levothyroxine Sodium 112 mcg PO DAILY 07/22/20 Tiotropium [Spiriva Handihaler*] 18 mcg IH BEDTIME 07/22/20 Furosemide [Lasix*] 40 mg PO DAILY 30 Days #30 tab 07/23/20 Ascorbic Acid [Vitamin C] 1,000 mg PO DAILY 08/09/23 Cholecalciferol (Vitamin D3) [Vitamin D 5,000 IU Cap*] 1 cap PO DAILY 08/09/23 Apixaban [Eliquis] 5 mg PO BID 2 Days #60 tab 08/12/23 Benzonatate [Tessalon Perle*] 200 mg PO TID PRN #30 cap 08/12/23 Diltiazem Cd [Cardizem Cd*] 120 mg PO DAILY #30 cap 08/12/23 Metoprolol Tartrate [Lopressor*] 25 mg PO BID 6AM 6PM #60 tab 08/12/23 Mometasone/Formoterol [Dulera 100 Mcg/5 Mcg Inhaler] 2 puff IH BID #1 inhaler 08/12/23 Oxycodone HCl/Acetaminophen [Percocet 5/325 Tab*] 1 tab PO Q4H PRN #12 tab 08/12/23 predniSONE [Deltasone*] 10 mg PO BID #14 tab 08/12/23 New Medications: Diltiazem Cd [Cardizem Cd*] 120 mg PO DAILY #30 cap predniSONE [Deltasone*] 10 mg PO BID #14 tab Mometasone/Formoterol [Dulera 100 Mcg/5 Mcg Inhaler] 2 puff IH BID #1 inhaler Apixaban [Eliquis] 5 mg PO BID 2 Days #60 tab Metoprolol Tartrate [Lopressor*] 25 mg PO BID 6AM 6PM #60 tab Oxycodone HCl/Acetaminophen [Percocet 5/325 Tab*] 1 tab PO Q4H PRN #12 tab PRN Reason: Pain Scale 5-7 (Moderate) Benzonatate [Tessalon Perle*] 200 mg PO TID PRN #30 cap PRN Reason: Cough Physician Discharge Instructions: Physician discharge instructions: Patient presented with worsening dyspnea, wheeze, cough, and was found to have an acute COPD exacerbation complicated by new onset paroxysmal a-fib. Chest x- ray noted chronic opacification left lung apex may represent parenchymal/pulm scarring without evidence of acute infiltrate. Venous ultrasound was negative for DVT. Patient received steroids, nebs, antitussives and had improvement of her symptoms. D-dimer was elevated 998 however unable to get CTA to rule out PE as patient reports she was told at [facility] she could not take contrast. CT without contrast with right suprahilar soft tissue density (2 cm), nonspecific 2 cm left adrenal mass, findings similar to her CT ~2 years ago at [facility]. During her hospitalization, Patient converted into new onset a-fib 08/08-08/09 overnight. On further discussion patient reports she thinks she may have been told she might have been in a-fib when getting outpatient stress test few weeks ago, otherwise has never been told she had a-fib. Cardiology was consulted and recommended cardizem. Discussed with cardio, given patient had upcoming heart cath scheduled in the near future with Dr. 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
--- NOTE | 2023-08-13 13:12 | EKG ---
Test Date: 2023-08-11 Test Time: 20:37:32 Taxicab Dispatcher: ELIZABETH MEASUREMENT RESULTS: Intervals: Rate: 131 [place]: QRSD: 90 QT: 258 QTc: 380 [place]: P: [place]: QRS: -16 T: 73 INTERPRETIVE STATEMENTS: Atrial fibrillation with rapid ventricular response Nonspecific ST abnormality, probably digitalis effect Abnormal ECG Compared to ECG 08/10/2023 01:53:22 No significant changes Electronically Signed On 08-13-23 13:07:27 CDT by Lacho Dwyer
--- NOTE | 2023-08-13 13:14 | EKG ---
Test Date: 2023-08-10 Test Time: 01:53:22 Supervisor [employer]: PRISCILLA MEASUREMENT RESULTS: Intervals: Rate: 144 [place]: QRSD: 94 QT: 294 QTc: 455 [place]: P: [place]: QRS: 58 T: 30 INTERPRETIVE STATEMENTS: Atrial fibrillation with rapid ventricular response Marked ST abnormality, possible inferior subendocardial injury Abnormal ECG Compared to ECG 08/08/2023 21:00:34 ST (T wave) deviation now present Sinus tachycardia no longer present Electronically Signed On 08-13-23 13:07:53 CDT by Lacho Dwyer
== END 2023-08-12 14:19 | disposition home or self-care (01) | DRG 286 ==
LOC: ER 20:44 → 2ND 23:05
PROVIDERS: ADMIT Internal Medicine; ATTEND Internal Medicine
PROC: 4A033R1 Measurement of Arterial Saturation, Peripheral, Percutaneous Approach (ICD-10-PCS; 2023-08-08)
PROC: 4A023N7 Measurement of Cardiac Sampling and Pressure, Left Heart, Percutaneous Approach (ICD-10-PCS; principal; 2023-08-11)
PROC: B2111ZZ Fluoroscopy of Multiple Coronary Arteries using Low Osmolar Contrast (ICD-10-PCS; 2023-08-11)
DX: I13.0 Hypertensive heart and chronic kidney disease with heart failure and stage 1 through stage 4 chronic kidney disease, or unspecified chronic kidney disease (principal); I50.33 Acute on chronic diastolic (congestive) heart failure; J44.1 Chronic obstructive pulmonary disease with (acute) exacerbation; N18.31 Chronic kidney disease, stage 3a; I48.0 Paroxysmal atrial fibrillation; D72.829 Elevated white blood cell count, unspecified; Z88.5 Allergy status to narcotic agent; Z88.1 Allergy status to other antibiotic agents; Z85.3 Personal history of malignant neoplasm of breast; Z88.8 Allergy status to other drugs, medicaments and biological substances; Z11.52 Encounter for screening for COVID-19; Z90.2 Acquired absence of lung [part of]; Z90.11 Acquired absence of right breast and nipple; Z79.52 Long term (current) use of systemic steroids; Z90.49 Acquired absence of other specified parts of digestive tract; Z91.018 Allergy to other foods; Z79.890 Hormone replacement therapy; Z79.899 Other long term (current) drug therapy; Z90.710 Acquired absence of both cervix and uterus; Z28.310 Unvaccinated for COVID-19; Z87.891 Personal history of nicotine dependence; Z85.118 Personal history of other malignant neoplasm of bronchus and lung
CPT/HCPCS: 36415; 71045; 71250; 76937; 80048; 80053; 80069; 80076; 82805; 83605; 83735; 83880; 84439; 84443; 84481; 84484; 85025; 85379; 85610; 87040; 87804; 87811; 93005; 93458; 93970; 96361; 96365; 96375; 99285; C1893; J0461; J1200; J1644; J1650; J1940; J2001; J2250; J2919; J3010; J3475; J3535; J7030; J7040; J7512; J7613; J7614; J7644; Q9966

== ENCOUNTER 2023-08-19 16:12 | Inpatient (IN) | payer OTHER ==
[2023-08-19] MEDS ORDERED: IPRATROPIUM BROM 0.5MG/2.5ML ONE (16:37)
[2023-08-19] MEDS ORDERED: LEVALBUTEROL 1.25 MG/3 ML NEB ONE (16:37)
[2023-08-19 17:09] LABS: Absolute Lymphocytes (CBC) 1.6 K/uL (0.7-4.9); Absolute Monocytes 1.4 K/uL (0.1-1.3); Absolute Neutrophil 28.8 K/uL (1.8-8.0); Basophils % 0.1 % (0-1.3); Hematocrit 37.5 % (36.0-45.0); Lymphocytes % 5.1 % (15.3-44.8); MCH 29.3 pg (27.0-35.0); MCHC 31.9 g/dL (32.0-36.0); MCV 91.8 fL (80-100); MPV 6.9 fL (7.6-11.3); Monocytes % 4.4 % (3.3-12.3); Neutrophils % 90.4 % (41.7-73.7); Platelets 369 thou/uL (152-406); RBC Red Blood Cell Count 4.09 M/uL (3.86-4.86); Red Cell Distribution Width 14.3 % (12.1-15.2)
[2023-08-19 17:26] LABS: Anion Gap 9.9 mEq/L (5.0-15.0); Magnesium 2.2 mg/dL (1.6-2.4); Potassium 3.9 mEq/L (3.5-5.1); Troponin High Sensitivity 5.6 pg/mL (<58.9)
--- NOTE | 2023-08-19 17:56 | RAD REPORT ---
EXAM DESCRIPTION: RADChest Single View08/19/2023 4:36 pm CLINICAL HISTORY: DYSPNEA COMPARISON: Chest Single View dated 08/08/2023; Chest Pa And Lat (2 Views) dated 02/28/2021; Chest Si ngle View dated 07/22/2020; Chest Pa And Lat (2 Views) dated 03/12/2017; Thorax Wo Con dated 08/09/2023 TECHNIQUE: Portable AP view of the chest. FINDINGS: Progressive patchy left mid to lower lung opacity. Crescentic opacification and postsurgic al changes at the left apex, stable. Hyperinflation on the right, stable. No pneumothorax or effusio n. The cardiomediastinal contours are unremarkable. IMPRESSION: Progressive patchy left mid to lower lung opacity, may reflect atelectasis or developing pneumonia. Other stable findings as above.
--- NOTE | 2023-08-19 18:48 | EDPHYS ---
Physician Documentation [facility] Name: Estefany Ryder Age: 83 yrs Sex: Female : 1940 Arrival Date: 08/19/2023 Time: 16:12 Bed 16 Private MD: ED Physician Beto Norman HPI: 08/18 18:42 This 83 yrs old Female presents to ER via EMS with complaints of Shortness Of Breath. kb 18:42 Pt is an 83 year old female who presents for cough and shortness of breath that started kb last night. States oxygen saturation has gotten down around 80%. States she does not have home oxygen but thinks she needs it. Reports she was recently admitted and didn't know she had prescriptions she was supposed to start.. Historical: - Allergies: 16:32 adenosine; kc6 16:32 achromycin; kc6 16:32 Advil; kc6 16:32 Aleve; kc6 16:32 amox TR K CLV; kc6 16:32 Bactrim; kc6 16:32 Biaxin; kc6 16:32 caffeine; kc6 16:32 Ceclor; kc6 16:32 Cefaclor; kc6 16:32 ceftab; kc6 16:32 Cephalexin; kc6 16:32 CEPHALOSPORINS; kc6 16:32 chemical stress test; kc6 16:32 Clarithromycin; kc6 16:32 Codeine; kc6 16:32 E.E.S. 400; kc6 16:32 flugonazole; kc6 16:32 Flagyl; kc6 16:32 Erythromycin; kc6 16:32 fulvicin; kc6 16:32 Ibuprofen; kc6 16:32 Indocin; kc6 16:32 Keflex; kc6 16:32 keftab; kc6 16:32 MAGNESIUM CITRATE; kc6 16:32 Maxitrol; kc6 16:32 Motrin; kc6 - PMHx: 16:32 BREAST CA; COPD; Lung CA; LYMPHOMA; kc6 - PSHx: 16:32 Cholecystectomy; Left lobectomy (MA); right mastectomy (MA); Total abdominal kc6 hysterectomy; - Immunization history:: Adult Immunizations up to date. - Infectious Disease History:: Denies. - Social history:: Smoking status: Patient denies any tobacco usage or history of. ROS: 18:41 Constitutional: As per HPI kb Exam: 16:58 Constitutional: This is a well developed, well nourished patient who is awake, alert, kb and in no acute distress. Head/Face: Normocephalic, atraumatic. ENT: Moist Mucous membranes Cardiovascular: Regular rate Abdomen/GI: Soft, non-tender. No distention Skin: Warm, dry with normal turgor. Normal color. MS/ Extremity: Pulses equal, no cyanosis. Neurovascular intact. Full, normal range of motion. Neuro: Awake and alert, GCS 15, oriented to person, place, time, and situation. Moves all extremities. Normal gait. 16:58 ECG was reviewed by the Attending Physician. 16:58 Respiratory: the patient does not display signs of respiratory distress, Respirations: normal, Breath sounds: rhonchi, that are mild, are scattered, Vital Signs: 16:31 BP 136 / 83; Pulse 90; Resp 19 S; Pulse Ox 96% on R/A; Weight 48.53 kg (R); Height 5 kc6 ft. 2 in. (R); 17:11 BP 104 / 49; Pulse 80; Resp 19 S; Pulse Ox 96% on R/A; kc6 18:04 BP 106 / 51; Pulse 76; Resp 16 S; Pulse Ox 95% on R/A; kc6 19:10 BP 109 / 53; Pulse 78; Resp 16 S; Pulse Ox 96% on R/A; kc6 20:36 BP 109 / 48; Pulse 85; Resp 16; Pulse Ox 96% ; jj7 21:30 BP 103 / 50; Pulse 81; Resp 17; Pulse Ox 96% on R/A; Pain 0/10; jj7 22:24 BP 105 / 55; Pulse 82; Resp 16; Pulse Ox 97% ; jj7 16:31 Body Mass Index 19.57 (48.53 kg, 157.48 cm) kc6 21:30 Pain Scale: Adult jj7 MDM: 16:19 Patient medically screened. kb 18:41 Differential diagnosis: Bronchitis Chronic Obstructive Pulmonary Disease pneumonia. kb Data reviewed: vital signs, nurses notes. Consideration of Admission/Observation Patient was admitted/placed on observation. Escalation of care including admission/observation considered. Management of patient was discussed with the following: Hospitalist: Elis accepts pt for admission under [facility]. Historians other than the Patient: EMS: [facility]. External Records Reviewed: Inpatient record: recent admission discharge summary, band saw marker progress note and heart cath report reviewed. . Care significantly affected by the following chronic conditions: Chronic Obstructive Pulmonary Disease, Cancer. Counseling: I had a detailed discussion with the patient and/or guardian regarding the historical points, exam findings, and any diagnostic results supporting the discharge/admit diagnosis, lab results, radiology results, the need for further work-up and treatment in the hospital. 08/18 16:20 Order name: Basic Metabolic Panel; Complete Time: 17:31 kb 08/18 16:20 Order name: CBC with Diff; Complete Time: 19:23 kb 08/18 16:20 Order name: Magnesium; Complete Time: 17:31 kb 08/18 16:20 Order name: Troponin HS; Complete Time: 17:31 kb 08/18 18:37 Order name: Blood Culture Adult (2) kb 08/18 18:37 Order name: Lactate w/ 2H reflex if indic.; Complete Time: 21:27 kb 08/18 18:37 Order name: Protime (+inr); Complete Time: 20:32 kb 08/18 18:37 Order name: Ptt, Activated; Complete Time: 20:32 kb 08/18 18:37 Order name: LFT's; Complete Time: 21:27 kb 08/18 19:14 Order name: Manual Differential; Complete Time: 19:23 [facility] 08/18 16:20 Order name: XRAY Chest (1 view); Complete Time: 17:57 kb 08/18 20:33 Order name: CONS Physician Consult [facility] 08/18 20:39 Order name: Social Service Consult [facility] 08/18 16:20 Order name: Cardiac monitoring; Complete Time: 16:57 kb 08/18 16:20 Order name: EKG - Nurse/Tech; Complete Time: 16:57 kb 08/18 16:20 Order name: IV Saline Lock; Complete Time: 16:57 kb 08/18 16:20 Order name: Labs collected and sent; Complete Time: 16:57 kb 08/18 16:20 Order name: O2 Per Protocol; Complete Time: 16:35 kb 08/18 16:20 Order name: O2 Sat Monitoring; Complete Time: 16:35 kb EC:58 Rate is 81 beats/min. Rhythm is regular. QRS [place] is Normal. [place] interval is normal at kb 146 msec. QRS interval is normal at 98 msec. QT interval is normal at 415 msec. Administered Medications: 16:57 Drug: Levalbuterol Inhalation 1.25 mg Inhalation once Route: Inhalation; kc6 18:04 Follow up: Response: No adverse reaction kc6 16:57 Drug: Ipratropium Inhalation Aerosol 0.5 mg Inhalation once Route: Inhalation; kc6 18:04 Follow up: Response: No adverse reaction [facility] 18:40 CANCELLED (Duplicate Order): [id number] mg 100 ml IVPB once over 60 mins kb 20:31 Drug: LevaQUIN IVPB 250 mg IVPB once Route: IVPB; Site: left antecubital; jj7 21:30 Follow up: IV Status: Completed infusion jj7 Disposition Summary: 08/19/23 18:47 Hospitalization Ordered Notes: Hospitalization Status: Inpatient Admission kb Provider: Lavon Norman Location: Telemetry/MedSurg (Inpatient) kb Condition: Stable kb Problem: new kb Symptoms: are unchanged kb Bed/Room Type: Standard Room Assignment: 221(08/19/23 20:47) jb4 Diagnosis - Pneumonia, unspecified organism kb - Elevated white blood cell count kb Forms: - Medication Reconciliation Form kb - SBAR form kb - Leadership Thank You Letter kb Addendum: 08/25/2023 07:02 Co-signature as Attending Physician, Beto Norman MD I reviewed the patient's care r n provided by the Advanced Practice Provider and agree with the diagnosis and treatment plan. Signatures: Dispatcher [employer] EDStefania Sesay, LEVEL VIAL SEALER-C LEVEL VIAL SEALER-Ckb Beto Norman MD MD rn Bryson, James, RN RN jb4 Rachel Joiner RN RN kc6 Isaiah Faith RN RN jj7 Corrections: (The following items were deleted from the chart) 08/18 18:38 18:38 BLOOD CULTURE*+BA.LAB.BRZ ordered. EDMS EDMS 18:38 18:38 LACTATE+C.LAB.BRZ ordered. EDMS EDMS 18:38 18:38 PROTIME (+INR)+COAG.LAB.BRZ ordered. EDMS EDMS 18:38 18:38 PTT, ACTIVATED+COAG.LAB.BRZ ordered. EDMS EDMS 18:38 18:38 HEPATIC FUNCTION+C.LAB.BRZ ordered. EDMS EDMS 18:40 18:39 levofloxacin IVPB 500 mg 100 ml IVPB once over 60 mins ordered. kb kb 20:47 18:47 kb jb4
--- NOTE | 2023-08-19 18:48 | ER ---
Nurse's Notes [facility] Name: Estefany Ryder Age: 83 yrs Sex: Female : 1940 Arrival Date: 08/19/2023 Time: 16:12 Bed 16 Private MD: Diagnosis: Pneumonia, unspecified organism;Elevated white blood cell count Presentation: 08/18 16:31 Chief complaint: EMS states: SOB x 1 week. recently diagnoses with afib and COPD. kc6 Coronavirus screen: At this time, the client does not indicate any symptoms associated with coronavirus-19. Ebola Screen: No symptoms or risks identified at this time. Initial Sepsis Screen: Does the patient meet any 2 criteria? No. Patient's initial sepsis screen is negative. Does the patient have a suspected source of infection? No. Patient's initial sepsis screen is negative. Risk Assessment: Do you want to hurt yourself or someone else? Patient reports no desire to harm self or others. Onset of symptoms was August 19, 2023. 16:31 Method Of Arrival: EMS: [facility] kc6 16:31 Acuity: DERIK 3 kc6 Historical: - Allergies: 16:32 adenosine; kc6 16:32 achromycin; kc6 16:32 Advil; kc6 16:32 Aleve; kc6 16:32 amox TR K CLV; kc6 16:32 Bactrim; kc6 16:32 Biaxin; kc6 16:32 caffeine; kc6 16:32 Ceclor; kc6 16:32 Cefaclor; kc6 16:32 ceftab; kc6 16:32 Cephalexin; kc6 16:32 CEPHALOSPORINS; kc6 16:32 chemical stress test; kc6 16:32 Clarithromycin; kc6 16:32 Codeine; kc6 16:32 E.E.S. 400; kc6 16:32 flugonazole; kc6 16:32 Flagyl; kc6 16:32 Erythromycin; kc6 16:32 fulvicin; kc6 16:32 Ibuprofen; kc6 16:32 Indocin; kc6 16:32 Keflex; kc6 16:32 keftab; kc6 16:32 MAGNESIUM CITRATE; kc6 16:32 Maxitrol; kc6 16:32 Motrin; kc6 - PMHx: 16:32 BREAST CA; COPD; Lung CA; LYMPHOMA; kc6 - PSHx: 16:32 Cholecystectomy; Left lobectomy (MA); right mastectomy (MA); Total abdominal kc6 hysterectomy; - Immunization history:: Adult Immunizations up to date. - Infectious Disease History:: Denies. - Social history:: Smoking status: Patient denies any tobacco usage or history of. Screenin:11 [facility] ED Fall Risk Assessment (Adult) History of falling in the last 3 months, kc6 including since admission No falls in past 3 months (0 pts) Confusion or Disorientation No (0 pts) Intoxicated or Sedated No (0 pts) Impaired Gait No (0 pts) Mobility Assist Device Used No (0 pt) Altered Elimination No (0 pt) Score/Fall Risk Level 0 - 2 = Low Risk. Abuse screen: Denies threats or abuse. Denies injuries from another. Nutritional screening: No deficits noted. Tuberculosis screening: No symptoms or risk factors identified. Assessment: 16:30 General: Appears in no apparent distress. comfortable, well groomed, well developed, kc6 Behavior is calm, cooperative, appropriate for age. Pain: Denies pain. Neuro: Level of Consciousness is awake, alert, obeys commands, Oriented to person, place, time, situation, Appropriate for age. Cardiovascular: Denies chest pain, Heart tones S1 S2 present Capillary refill < 3 seconds Rhythm is sinus rhythm. Respiratory: Airway is patent Trachea midline Respiratory effort is even, unlabored, Respiratory pattern is regular, symmetrical, Breath sounds with wheezes bilaterally. GI: No signs and/or symptoms were reported involving the gastrointestinal system. : No signs and/or symptoms were reported regarding the genitourinary system. EENT: No signs and/or symptoms were reported regarding the EENT system. Derm: No signs and/or symptoms reported regarding the dermatologic system. Skin is intact, is healthy with good turgor, Skin is pink, warm \T\ dry. Musculoskeletal: No signs and/or symptoms reported regarding the musculoskeletal system. Circulation, motion, and sensation intact. Capillary refill < 3 seconds, Range of motion: intact in all extremities. 17:30 Reassessment: Patient appears in no apparent distress at this time. No changes from kc6 previously documented assessment. Patient and/or family updated on plan of care and expected duration. Pain level reassessed. Patient is alert, oriented x 3, equal unlabored respirations, skin warm/dry/pink. 18:30 Reassessment: Patient appears in no apparent distress at this time. No changes from [facility] previously documented assessment. Patient and/or family updated on plan of care and expected duration. Pain level reassessed. Patient is alert, oriented x 3, equal unlabored respirations, skin warm/dry/pink. 19:05 Reassessment: ASSUMED CARE OF PT. PT SITTING IN BED. NO PAIN OR DISTRESS NOTED. VS jj7 STABLE. CALL RYAN IN REACH FAMILY AT BEDSIDE. General: Appears in no apparent distress. comfortable, Behavior is calm, cooperative, appropriate for age. Pain: Denies pain. Respiratory: Airway is patent Respiratory effort is even, unlabored, Respiratory pattern is regular, symmetrical. 22:00 Reassessment: PT REFUSED PUTTING ON A GOWN. [facility] Vital Signs: 16:31 BP 136 / 83; Pulse 90; Resp 19 S; Pulse Ox 96% on R/A; Weight 48.53 kg (R); Height 5 [facility] ft. 2 in. (R); 17:11 BP 104 / 49; Pulse 80; Resp 19 S; Pulse Ox 96% on R/A; kc6 18:04 BP 106 / 51; Pulse 76; Resp 16 S; Pulse Ox 95% on R/A; kc6 19:10 BP 109 / 53; Pulse 78; Resp 16 S; Pulse Ox 96% on R/A; kc6 20:36 BP 109 / 48; Pulse 85; Resp 16; Pulse Ox 96% ; jj7 21:30 BP 103 / 50; Pulse 81; Resp 17; Pulse Ox 96% on R/A; Pain 0/10; jj7 22:24 BP 105 / 55; Pulse 82; Resp 16; Pulse Ox 97% ; jj7 16:31 Body Mass Index 19.57 (48.53 kg, 157.48 cm) 6 21:30 Pain Scale: Adult j7 Vitals: 17:11 Cardiac Rhythm Assessment Sinus rhythm. [facility] ED Course: 16:14 Patient arrived in ED. bd 16:19 Stefania Flaherty FNP-C is PHCP. kb 16:19 Beto Norman MD is Attending Physician. kb 16:23 Rachel Joiner RN is Primary Nurse. kc6 16:32 Triage completed. kc6 16:32 Arm band placed on. kc6 16:38 XRAY Chest (1 view) In Process Unspecified. EDMS 16:57 Inserted saline lock: 22 gauge in left forearm, using aseptic technique. Blood kc6 collected. 17:11 Patient has correct armband on for positive identification. Bed in low position. Call kc6 light in reach. Side rails up X2. Client placed on continuous cardiac and pulse oximetry monitoring. NIBP monitoring applied. groundwater monitoring technician on. Warm blanket given. Pillow given. 18:47 Lavon Norman MD is Hospitalizing Provider. kb 19:05 Provided Education on: ADMISSION PROCESS. jj7 19:05 No provider procedures requiring assistance completed. jj7 19:09 Report given to MICHEL KENT. kc6 20:25 Blood Culture Adult (2) Sent. jj7 20:25 Lactate w/ 2H reflex if indic. Sent. jj7 20:25 Protime (+inr) Sent. jj7 20:25 Ptt, Activated Sent. jj7 21:59 Patient admitted, IV remains in place. jj7 Administered Medications: 16:57 Drug: Levalbuterol Inhalation 1.25 mg Inhalation once Route: Inhalation; kc6 18:04 Follow up: Response: No adverse reaction kc6 16:57 Drug: Ipratropium Inhalation Aerosol 0.5 mg Inhalation once Route: Inhalation; kc6 18:04 Follow up: Response: No adverse reaction kc6 18:40 CANCELLED (Duplicate Order): [id number] mg 100 ml IVPB once over 60 mins kb 20:31 Drug: LevaQUIN IVPB 250 mg IVPB once Route: IVPB; Site: left antecubital; jj7 21:30 Follow up: IV Status: Completed infusion jj7 Medication: 19:05 VIS not applicable for this client. jj7 Outcome: 18:47 Decision to Hospitalize by Provider. kb 21:57 Admitted to Med/surg accompanied by tech, via wheelchair, room 221, Report called to j7 REPORT FAXED TO M/S 2ND FLOOR 21:57 Condition: good 22:25 Patient left the ED. jj7 Signatures: Dispatcher [employer] EDKS Stefania Flaherty, JODY GRAY-Nu Terry Kaitlyn, RN RN Isaiah Gonzalez RN RN jj7
[2023-08-19 19:14] LABS: Band Neutrophils 2 % (0-1); Blood Morphology Comment NOT SEEN (NOT SEEN); Differential Total Cells Count 100; Lymphocytes 6 % (15-42); Monocytes 5 % (0-10); Platelet Estimate ADEQ; Segmented Neutrophils 87 % (40-80)
[2023-08-19] MEDS ORDERED: Levofloxacin500mg IV 500 MG/100 ML BAG IV ONE (20:23)
[2023-08-19 20:31] LABS: PT Prothrombin Time 14.3 SECONDS (9.5-12.5); PTT, Activated Partial Thromb 29.2 SECONDS (24.3-36.9); Protime INR 1.31
--- NOTE | 2023-08-19 20:38 | P.HP ---
Certification for Inpatient Patient admitted to: Inpatient With expected LOS: <2 Midnights Practitioner: I am a practitioner with admitting privileges, knowledge of patient current condition, hospital course, and medical plan of care. Services: Services provided to patient in accordance with Admission requirements found in Title 42 Section 412.3 of the Code of Federal Regulations Patient History Date of Service: 08/20/23 Reason for admission: Pneumonia History of Present Illness: 83-year-old female with history of lung cancer status post lobectomy, breast cancer s/p mastectomy , lymphoma , follow with MD Pizarro , history of COPD, CHF diastolic dysfunction, CKD stage III with baseline eGFR at 46MLSmin ; presenting with as shortness of breath. She reports home O2 saturations 80%. She was recently admitted with new onset A-fib RVR, she was placed on Cardizem, and Eliquis. She is status postcardiac catheterization Cardiology Dr. Dwyer performed cardiac catheterization and patient found to have mild non-obstructive coronary artery disease. Last admission, was admitted with and treated for COPD exacerbation was evaluated by Dr. Schultz for COPD exacerbation. She is not currently on home O2 was discharged home on low-dose steroids. She denies fever, cough, chills, plan to admit for Pneumonia, unspecified organism, Elevated white blood cell count. Pulmonology to consult. Chest x-ray shows IMPRESSION: Progressive patchy left mid to lower lung opacity, may reflect atelectasis or developing pneumonia. Other stable findings as above. EKG 8 Rate is 81 beats/min. Rhythm is regular. QRS [place] is Normal. DC interval is normal at kb 146 msec. QRS interval is normal at 98 msec. QT interval is normal at 415 msec. WBC 31.90, left shift 90.4, acute on chronic kidney injury BUN 27 creatinine 1.20 GFR 45, lactic pending Allergies adenosine Allergy (Verified 07/22/20 07:55) Rash caffeine Allergy (Verified 07/22/20 07:55) Rash cefaclor Allergy (Verified 07/22/20 07:55) Rash cephalexin Allergy (Verified 07/22/20 07:55) Rash Cephalosporins Allergy (Verified 07/22/20 07:55) Rash clarithromycin Allergy (Verified 07/22/20 07:55) Rash codeine Allergy (Verified 07/22/20 07:55) Rash dexamethasone [From Maxitrol] Allergy (Verified 07/22/20 07:55) Rash erythromycin base Allergy (Verified 07/22/20 07:55) Rash ibuprofen Allergy (Verified 07/22/20 07:55) Rash indomethacin [From Indocin] Allergy (Verified 07/22/20 07:55) Rash metronidazole [From Flagyl] Allergy (Verified 07/22/20 07:55) Rash naproxen [From Naprosyn] Allergy (Verified 07/22/20 07:55) Rash neomycin [From Maxitrol] Allergy (Verified 07/22/20 07:55) Rash NSAIDS (Non-Steroidal Anti-Inflamma Allergy (Verified 07/22/20 07:55) Rash polymyxin B [From Maxitrol] Allergy (Verified 07/22/20 07:55) Rash Sulfa (Sulfonamide Antibiotics) Allergy (Verified 07/22/20 07:55) Rash tetracycline [From Sumycin] Allergy (Verified 07/22/20 07:55) Rash Tetracyclines Allergy (Verified 07/22/20 07:55) Rash amox tr-k clv 500-125 Allergy (Uncoded 07/22/20 07:55) Rash Chemical stress test Allergy (Uncoded 07/22/20 07:55) Rash EES 400 Allergy (Uncoded 07/22/20 07:55) Rash fulvicin Allergy (Uncoded 07/22/20 07:55) Rash naflon 600 Allergy (Uncoded 07/22/20 07:55) Rash neodecadron ophthalmic soln Allergy (Uncoded 07/22/20 07:55) Rash promine Allergy (Uncoded 07/22/20 07:55) Rash Sodium pentathol Allergy (Uncoded 07/22/20 07:55) Rash Home Medications: Albuterol Inhaler [Ventolin Inhaler*] 2 puff IH Q6H PRN #1 hfa.aer.ad 07/22/20 Albuterol Sulfate [Albuterol Sulfate 0.083% Neb Soln] 2.5 mg IH Q6H PRN 07/22/20 Levothyroxine Sodium 100 mcg PO DAILY 07/22/20 Tiotropium [Spiriva Handihaler*] 1 puff IH BEDTIME 07/22/20 Ascorbic Acid [Vitamin C] 1,000 mg PO DAILY 08/09/23 Cholecalciferol (Vitamin D3) [Vitamin D 5,000 IU Cap*] 1 cap PO DAILY 08/09/23 Apixaban [Eliquis] 5 mg PO BID 2 Days #60 tab 08/12/23 Benzonatate [Tessalon Perle*] 200 mg PO TID PRN #30 cap 08/12/23 Diltiazem Cd [Cardizem Cd*] 120 mg PO DAILY #30 cap 08/12/23 Metoprolol Tartrate [Lopressor*] 25 mg PO BID 6AM 6PM #60 tab 08/12/23 Oxycodone HCl/Acetaminophen [Percocet 5/325 Tab*] 1 tab PO Q4H PRN #12 tab 08/12/23 predniSONE [Deltasone*] 10 mg PO BID #14 tab 08/12/23 Furosemide [Lasix*] 20 mg PO EVERY 3RD DAY 08/19/23 - Past Medical/Surgical History Diabetic: No -: Breast cancer -: Lymphoma -: Lung cancer -: COPD -: Lobectomy -: R breast mastectomy -: Hysterectomy -: Cholecystectomy -: Cataract sx igor - Family History Father -: Heart disease Mother -: Lung disease Notes: emphysema - Social History Alcohol use: No CD- Drugs: No Caffeine use: Yes Review of Systems per HPI Physical Examination - Physical Exam General: Alert, In no apparent distress, Oriented x3 HEENT: Atraumatic, Normocephalic Neck: 2+ carotid pulse no bruit, JVD not distended Respiratory: Normal air movement, Expiratory wheezes Cardiovascular: Normal pulses, Regular rate/rhythm Capillary refill: <2 Seconds Gastrointestinal: Normal bowel sounds, Soft and benign Musculoskeletal: No clubbing, No swelling Integumentary: No breakdown, No significant lesion Neurological: Normal speech, Normal strength at 5/5 x4 extr - Studies Laboratory Data (last 24 hrs) 08/19/23 08/19/23 08/19/23 20:10 16:53 16:53 WBC 31.90 H Hgb 12.0 Hct 37.5 Plt Count 369 PT 14.3 H INR 1.31 APTT 29.2 Sodium 138 Potassium 3.9 BUN 27 H Creatinine 1.20 H Glucose 130 H Magnesium 2.2 Assessment and Plan - Plan Assessment plan Acute hypoxic respiratory failure secondary to LLL pneumonia COPD exacerbation Leukocytosis 30 likely secondary to steroid use Pulmonary consult, O2 2 L keep sats greater than 92 Room air sats to evaluate for home O2 need IV Levaquin, resume home inhalers,, steroid (mult drug allergies) presenting with as shortness of breath. She reports home O2 saturations 80%. Chest x-ray shows IMPRESSION: Progressive patchy left mid to lower lung opacity, may reflect atelectasis or developing pneumonia. Other stable findings as above. WBC 31.90, left shift 90.4, , lactic 1.5. history of lung cancer status post lobectomy breast cancer s/p mastectomy lymphoma , follow with MD Pizarro Follow-up with oncology, primary care after discharge, not currently on chemo History of A-fib CHF diastolic dysfunction She was recently admitted with new onset A-fib RVR, she was placed on Cardizem, and Eliquis. She is status postcardiac catheterization Cardiology Dr. Dwyer performed cardiac catheterization and patient found to have mild non-obstructive coronary artery disease. Trend troponins initial trop normal, 1.5, trend BNP Resume home antihypertensive, On Cardizem, Eliquis Recent cardiac cath EKG Rate is 81 beats/min. Rhythm is regular. QRS [place] is Normal. DC interval is normal at kb 146 msec. QRS interval is normal at 98 msec. QT interval is normal at 415 msec. CKD stage III with baseline eGFR at 46ML Trend kidney from acute on chronic kidney injury BUN 27 creatinine 1.20 GFR 45 Full code DVT Eliquis Diet cardiac Disposition Home independent prior, uses walker at baseline, not currently on home 02 Discharge Plan: Home - Advance Directives Does patient have a Living Will: No Does patient have a Durable POA for Healthcare: Yes - Code Status/Comfort Care Code Status: Full Code Critical Care: No Time Spent Managing Pts Care (In Minutes): 55
[2023-08-19 20:40] LABS: ALT/SGPT 40 U/L (13-56); AST/SGOT 16 U/L (15-37); Albumin 2.9 g/dL (3.4-5.0); Albumin/Globulin Ratio 0.7 (1.1-1.8); Alkaline Phosphatase 70 U/L (45-117); Bilirubin Total 0.4 mg/dL (0.2-1.0); Globulin 4.3 g/dL (2.3-3.5); Protein, Total 7.2 g/dL (6.4-8.2)
[2023-08-19 20:49] LABS: Bilirubin Direct < 0.2 mg/dL (0-0.2); Bilirubin Indirect, Calculated 0.2 mg/dL (0.2-0.8)
[2023-08-19] MEDS ORDERED: ONDANSETRON 4 MG/2 ML VIAL IV PRN (22:34)
[2023-08-19] MEDS: NA CHLORIDE 0.9% 1,000 ML IV SCH (23:42)
[2023-08-19] MEDS: predniSONE 10 MG TAB PO SCH (23:50)
[2023-08-19] MEDS: METOPROLOL TAR 25 MG TAB PO SCH (23:50)
[2023-08-19] MEDS: APIXABAN 5 MG TABLET PO SCH (23:50)
[2023-08-20 00:15] LABS: Specific Gravity 1.011 (1.005-1.030); Sqamous Epithelial <5 /HPF (None Seen); Urine Bacteria None Seen /HPF (<20); Urine Bilirubin NEGATIVE (Negative); Urine Blood 1+ (Negative); Urine Clarity Clear (Clear); Urine Color Light-Yellow (Yellow); Urine Culture Reflex Order NOT NEEDED; Urine Glucose NEGATIVE (Negative); Urine Ketones NEGATIVE (Negative); Urine Microscopic Reflex YN ORDER UMIC; Urine Mucus Slight /HPF (None Seen); Urine Nitrite NEGATIVE (Negative); Urine Protein NEGATIVE (Negative); Urine Urobilinogen Normal (Normal); Urine WBC <5 /HPF (<5)
[2023-08-20 00:22] VITALS: BMI 19.5
[2023-08-20] MEDS: ACETAMINOPHEN 500 MG TAB PO PRN (00:45)
[2023-08-20] MEDS: ALBUTEROL 2.5 MG/3 ML NEB SOL NEB PRN (01:15)
[2023-08-20] MEDS: IPRATROPIUM BROM 0.5MG/2.5ML NEB PRN (01:18)
[2023-08-20 04:53] LABS: Absolute Lymphocytes (CBC) 1.2 K/uL (0.7-4.9); Absolute Neutrophil 23.3 K/uL (1.8-8.0); Basophils % 0.1 % (0-1.3); Eosinophils % 0.1 % (0-4.4); Hematocrit 31.3 % (36.0-45.0); Hemoglobin 10.4 g/dL (12.0-15.0); Lymphocytes % 4.7 % (15.3-44.8); MCH 30.3 pg (27.0-35.0); MCHC 33.1 g/dL (32.0-36.0); MCV 91.6 fL (80-100); MPV 7.1 fL (7.6-11.3); Neutrophils % 91.1 % (41.7-73.7); Platelets 296 thou/uL (152-406); RBC Red Blood Cell Count 3.42 M/uL (3.86-4.86); Red Cell Distribution Width 14.1 % (12.1-15.2)
[2023-08-20 05:33] LABS: Anion Gap 7.3 mEq/L (5.0-15.0); Magnesium 2.1 mg/dL (1.6-2.4); Potassium 4.3 mEq/L (3.5-5.1); Troponin High Sensitivity 4.6 pg/mL (<58.9)
[2023-08-20] MEDS ORDERED: Oxycodone HCl/Acetaminophen 5/325 MG TAB PO PRN (06:28)
[2023-08-20] MEDS: LEVOTHYROXINE SOD 0.1 MG TAB PO SCH (06:46)
[2023-08-20] MEDS: DILTIAZEM HCL 120 MG SR CAP PO SCH (09:00)
[2023-08-20] MEDS: FUROSEMIDE 20 MG TABLET PO SCH (09:00)
[2023-08-20] MEDS: VITAMIN D 5,000 UNIT CAP PO SCH (09:06)
--- NOTE | 2023-08-20 11:53 | P.PN ---
Date of Service: 08/20/23 Subjective: Feeling much better today No acute events overnight ROS: 10 point ROS as noted above, otherwise negative Physical exam GEN: Alert, oriented, NAD HEENT: Normal conjunctiva, sclera anicteric CV: A-fib, rate controlled, no edema Pulm: Nonlabored respirations on room air ABD: Soft, nontender, nondistended MSK: No joint tenderness Integumentary: No rashes Neuro: Normal speech, normal affect Vitals reviewed Assessment plan Acute hypoxic respiratory failure secondary to LLL pneumonia COPD exacerbation Leukocytosis likely secondary to steroid use Pulmonary consulted weaned off of O2 today Room air sats to evaluate for home O2 need-on room air currently IV Levaquin, resume home inhalers White blood cell count improved, continue to trend Recently completed 7-day course of prednisone twice daily Possible discharge AM history of lung cancer status post lobectomy breast cancer s/p mastectomy lymphoma , follow with MD Pizarro Follow-up with oncology, primary care after discharge, not currently on chemo History of A-fib CHF diastolic dysfunction She was recently admitted with new onset A-fib RVR Recent heart cath with nonobstructive CAD Resume Cardizem, metoprolol, Eliquis Continue to monitor on telemetry CKD stage III Daily chemistry Full code DVT Eliquis Diet cardiac Disposition Home independent prior, uses walker at baseline, not currently on home 02 Time Spent Managing Pts Care (In Minutes): 35
--- NOTE | 2023-08-20 12:49 | P.CNS ---
Chief Complaint: Pneumonia Allergies adenosine Allergy (Verified 07/22/20 07:55) Rash caffeine Allergy (Verified 07/22/20 07:55) Rash cefaclor Allergy (Verified 07/22/20 07:55) Rash cephalexin Allergy (Verified 07/22/20 07:55) Rash Cephalosporins Allergy (Verified 07/22/20 07:55) Rash clarithromycin Allergy (Verified 07/22/20 07:55) Rash codeine Allergy (Verified 07/22/20 07:55) Rash dexamethasone [From Maxitrol] Allergy (Verified 07/22/20 07:55) Rash erythromycin base Allergy (Verified 07/22/20 07:55) Rash ibuprofen Allergy (Verified 07/22/20 07:55) Rash indomethacin [From Indocin] Allergy (Verified 07/22/20 07:55) Rash metronidazole [From Flagyl] Allergy (Verified 07/22/20 07:55) Rash naproxen [From Naprosyn] Allergy (Verified 07/22/20 07:55) Rash neomycin [From Maxitrol] Allergy (Verified 07/22/20 07:55) Rash NSAIDS (Non-Steroidal Anti-Inflamma Allergy (Verified 07/22/20 07:55) Rash polymyxin B [From Maxitrol] Allergy (Verified 07/22/20 07:55) Rash Sulfa (Sulfonamide Antibiotics) Allergy (Verified 07/22/20 07:55) Rash tetracycline [From Sumycin] Allergy (Verified 07/22/20 07:55) Rash Tetracyclines Allergy (Verified 07/22/20 07:55) Rash amox tr-k clv 500-125 Allergy (Uncoded 07/22/20 07:55) Rash Chemical stress test Allergy (Uncoded 07/22/20 07:55) Rash EES 400 Allergy (Uncoded 07/22/20 07:55) Rash fulvicin Allergy (Uncoded 07/22/20 07:55) Rash naflon 600 Allergy (Uncoded 07/22/20 07:55) Rash neodecadron ophthalmic soln Allergy (Uncoded 07/22/20 07:55) Rash promine Allergy (Uncoded 07/22/20 07:55) Rash Sodium pentathol Allergy (Uncoded 07/22/20 07:55) Rash Home Medications: Albuterol Inhaler [Ventolin Inhaler*] 2 puff IH Q6H PRN #1 hfa.aer.ad 07/22/20 Albuterol Sulfate [Albuterol Sulfate 0.083% Neb Soln] 2.5 mg IH Q6H PRN 07/22/20 Levothyroxine Sodium 100 mcg PO DAILY 07/22/20 Tiotropium [Spiriva Handihaler*] 1 puff IH BEDTIME 07/22/20 Ascorbic Acid [Vitamin C] 1,000 mg PO DAILY 08/09/23 Cholecalciferol (Vitamin D3) [Vitamin D 5,000 IU Cap*] 1 cap PO DAILY 08/09/23 Apixaban [Eliquis] 5 mg PO BID 2 Days #60 tab 08/12/23 Benzonatate [Tessalon Perle*] 200 mg PO TID PRN #30 cap 08/12/23 Diltiazem Cd [Cardizem Cd*] 120 mg PO DAILY #30 cap 08/12/23 Metoprolol Tartrate [Lopressor*] 25 mg PO BID 6AM 6PM #60 tab 08/12/23 Oxycodone HCl/Acetaminophen [Percocet 5/325 Tab*] 1 tab PO Q4H PRN #12 tab 08/12/23 predniSONE [Deltasone*] 10 mg PO BID #14 tab 08/12/23 Furosemide [Lasix*] 20 mg PO EVERY 3RD DAY 08/19/23 - Past Medical/Surgical History Diabetic: No -: Breast cancer -: Lymphoma -: Lung cancer -: COPD -: Lobectomy -: R breast mastectomy -: Hysterectomy -: Cholecystectomy -: Cataract sx igor - Family History Father Medical History: Heart disease Mother Medical History: Lung disease Notes: emphysema - Social History Alcohol use: No CD- Drugs: No Caffeine use: Yes Place of Residence: Home Physical Examination Temp Pulse Resp BP Pulse Ox 97.3 F 74 18 101/50 L 96 08/20/23 08:00 08/20/23 08:00 08/20/23 08:00 08/20/23 08:00 08/20/23 08:00 Laboratory Data (last 24 hrs) 08/19/23 08/19/23 08/19/23 20:10 20:10 16:53 WBC 31.90 H Hgb 12.0 Hct 37.5 Plt Count 369 PT 14.3 H INR 1.31 APTT 29.2 Sodium Potassium BUN Creatinine Glucose Magnesium Total Bilirubin 0.4 AST 16 ALT 40 Alkaline Phosphatase 70 08/19/23 16:53 WBC Hgb Hct Plt Count PT INR APTT Sodium 138 Potassium 3.9 BUN 27 H Creatinine 1.20 H Glucose 130 H Magnesium 2.2 Total Bilirubin AST ALT Alkaline Phosphatase
[2023-08-20] MEDS: DULERA 200/5 (MOMETASONE/FORMOTEROL) INHALER IH SCH (13:00)
--- NOTE | 2023-08-20 13:06 | EKG ---
Test Date: 2023-08-19 Test Time: 16:45:24 Admin Secretary: EYAD MEASUREMENT RESULTS: Intervals: Rate: 81 MO: 146 QRSD: 98 QT: 358 QTc: 415 [place]: P: 91 MO: 146 QRS: 91 T: 57 INTERPRETIVE STATEMENTS: Suspect arm lead reversal, interpretation assumes no reversal Normal sinus rhythm Lateral infarct, age undetermined Abnormal ECG Compared to ECG 08/11/2023 20:37:32 Myocardial infarct finding now present Atrial fibrillation no longer present ST (T wave) deviation no longer present Electronically Signed On 08-20-23 13:05:52 CDT by Lacho Dwyer
[2023-08-20] MEDS: METOPROLOL TAR 25 MG TAB PO SCH (17:08)
[2023-08-20] MEDS: METOPROLOL TARTRATE 5 MG/5 ML INJ IV STA (17:27)
[2023-08-20] MEDS ORDERED: LEVALBUTEROL 0.63 MG/3 ML NEB NEB SCH (22:00)
[2023-08-21] MEDS ORDERED: ALBUTEROL 2.5 MG/3 ML NEB SOL NEB SCH (01:00)
[2023-08-21] MEDS: BENZONATATE 100 MG CAP PO PRN (01:40)
[2023-08-21 07:32] LABS: Absolute Basophils 0.1 K/uL (0-0.5); Absolute Eosinophils 0.2 K/uL (0-0.5); Absolute Lymphocytes (CBC) 2.7 K/uL (0.7-4.9); Absolute Monocytes 1.4 K/uL (0.1-1.3); Absolute Neutrophil 11.7 K/uL (1.8-8.0); Basophils % 0.4 % (0-1.3); Eosinophils % 1.3 % (0-4.4); Hematocrit 35.7 % (36.0-45.0); Hemoglobin 11.4 g/dL (12.0-15.0); Lymphocytes % 16.8 % (15.3-44.8); MCH 29.5 pg (27.0-35.0); MCHC 31.9 g/dL (32.0-36.0); MCV 92.5 fL (80-100); MPV 7.2 fL (7.6-11.3); Monocytes % 8.9 % (3.3-12.3); Neutrophils % 72.6 % (41.7-73.7); Platelets 346 thou/uL (152-406); RBC Red Blood Cell Count 3.86 M/uL (3.86-4.86); Red Cell Distribution Width 13.9 % (12.1-15.2)
--- NOTE | 2023-08-21 20:20 | P.PN ---
Date of Service: 08/21/23 Subjective: Awake and conversing well Reports confusion with medications and dropping her blood pressure Educated on the purpose of the medications and that we are monitoring closely ROS: 10 point ROS as noted above, otherwise negative Physical exam GEN: NAD, AAOx3 HEENT: Normal conjunctiva, sclera anicteric CV: A-fib, rate controlled, no edema, no murmur noted Pulm: Nonlabored respirations on room air ABD: Soft and benign on palpation, ND/NT, normal active bowel sounds MSK: No joint tenderness, 2+ peripheral pulses Integumentary: No rashes Neuro: Normal speech, normal affect Vitals reviewed Assessment plan Acute hypoxic respiratory failure secondary to LLL pneumonia COPD exacerbation Leukocytosis likely secondary to steroid use Pulmonary consulted weaned off of O2 resume home inhalers White blood cell count improved, continue to trend Recently completed 7-day course of prednisone twice daily discharge AM if blood pressure and heart rates remained stable History of lung cancer status post lobectomy breast cancer s/p mastectomy lymphoma , follow with MD Pizarro Follow-up with oncology, primary care after discharge, not currently on chemo History of A-fib CHF diastolic dysfunction She was recently admitted with new onset A-fib RVR Recent heart cath with nonobstructive CAD Resume Cardizem, metoprolol, Eliquis Continue to monitor on telemetry Cardiology consulted CKD stage III Daily chemistry Full code DVT Eliquis Diet cardiac Disposition Home independent prior, uses walker at baseline, not currently on home
[2023-08-22 03:26] LABS: Absolute Basophils 0.1 K/uL (0-0.5); Absolute Eosinophils 0.2 K/uL (0-0.5); Absolute Lymphocytes (CBC) 1.5 K/uL (0.7-4.9); Absolute Monocytes 1.1 K/uL (0.1-1.3); Absolute Neutrophil 7.4 K/uL (1.8-8.0); Basophils % 0.5 % (0-1.3); Eosinophils % 1.8 % (0-4.4); Hematocrit 33.4 % (36.0-45.0); Lymphocytes % 14.6 % (15.3-44.8); MCH 30.2 pg (27.0-35.0); MCV 91.5 fL (80-100); MPV 7.4 fL (7.6-11.3); Monocytes % 10.9 % (3.3-12.3); Neutrophils % 72.2 % (41.7-73.7); Platelets 329 thou/uL (152-406); RBC Red Blood Cell Count 3.65 M/uL (3.86-4.86); Red Cell Distribution Width 13.8 % (12.1-15.2)
[2023-08-22 03:52] LABS: Anion Gap 4.9 mEq/L (5.0-15.0); Magnesium 1.9 mg/dL (1.6-2.4); Potassium 3.9 mEq/L (3.5-5.1)
[2023-08-22 09:51] VITALS: O2SAT 97
[2023-08-22 12:24] VITALS: BP 107/52; TEMP 98.2
--- NOTE | 2023-08-22 14:21 | P.DS ---
Admission Date: 08/19/23 Discharge Date: 08/24/23 Disposition: ROUTINE DISCHARGE Discharge Condition: GOOD Reason for Admission: Pneumonia Brief History of Present Illness: Diagnosis Acute hypoxic respiratory failure secondary to LLL pneumonia COPD exacerbation Leukocytosis likely secondary to steroid use History of lung cancer status post lobectomy breast cancer s/p mastectomy lymphoma , follow with MD Pizarro History of A-fib CHF diastolic dysfunction CKD stage III HPI 08/19/23 Estefany Ryder is a 83-year-old female with history of lung cancer status post lobectomy, breast cancer s/p mastectomy , lymphoma , follow with MD Pizarro , history of COPD, CHF diastolic dysfunction, CKD stage III with baseline eGFR at 46MLSmin ; presenting with as shortness of breath. She reports home O2 saturati ons 80%. She was recently admitted with new onset A-fib RVR, she was placed on Cardizem, and Eliquis. She is status postcardiac catheterization Cardiology Dr. Dwyer performed cardiac catheterization and patient found to have mild non- obstructive coronary artery disease. Last admission, was admitted with and treated for COPD exacerbation was evaluated by Dr. Schultz for COPD exacerbation. She is not currently on home O2 was discharged home on low-dose steroids. She denies fever, cough, chills, plan to admit for Pneumonia, unspecified organism, Elevated white blood cell count. Pulmonology to consult. Chest x-ray shows IMPRESSION: Progressive patchy left mid to lower lung opacity, may reflect atelectasis or developing pneumonia. Other stable findings as above. EKG 8 Rate is 81 beats/min. Rhythm is regular. QRS [place] is Normal. [place] interval is normal at kb 146 msec. QRS interval is normal at 98 msec. QT interval is normal at 415 msec. WBC 31.90, left shift 90.4, acute on chronic kidney injury BUN 27 creatinine 1.20 GFR 45, lactic pending Hospital Course: Estefany Ryder is a pleasant 83-year-old female with a past medical history significant for sonia cancer status post lobectomy, breast cancer s/p mastectomy , lymphoma , follow with MD Pizarro , history of COPD, CHF diastolic dysfunction, CKD stage III with baseline eGFR at 46MLSmin who was admitted to the [facility] on 08/19/2023 for acute hypoxic respiratory failure secondary to left lower lobe pneumonia. Estefany Ryder presented to the ED with chief complaint of shortness of breath with oxygen saturation of 80%. She had a recent diagnosis of atrial fibrillation with RVR and placed on Cardizem and Eliquis. During her hospital stay she has tolerated Cardizem, metoprolol, continued Eliquis, and has been hemodynamically stable. Cardiology was consulted and recommends changing metoprolol to 12.5 mg twice a day. She is tolerating p.o. diet, in good spirits,and ambulating independently. On 08/22/2023, Estefany was seen on morning rounds and deemed medically stable for discharge. Estefany was discharged with instructions to schedule follow-up appointments with PCP, , and Dr. Armas. [text] was provided prescriptions for diltiazem and Lopressor. The patient and family members were given the opportunity to ask questions and reported no further questions. Furthermore, all questions were answered to the best of my ability. A copy of this discharge summary will be sent to the above providers to facilitate continuity of care. Physical exam GEN: Alert and oriented x 3, no acute distress, comfortable HEENT: Normal conjunctiva, sclera anicteric CV: NSR, no edema, no murmur noted Pulm: Nonlabored respirations, symmetrical chest wall movement, on room air ABD: Soft and benign on palpation, ND/NT, active bowel sounds present MSK: No joint tenderness, 2+ peripheral pulses Integumentary: No rashes Neuro: Normal speech, normal affect Vital Signs/Physical Exam: Temp Pulse Resp BP Pulse Ox 98.2 F 79 17 107/52 L 96 08/22/23 12:00 08/22/23 12:00 08/22/23 12:00 08/22/23 12:00 08/22/23 12:00 Laboratory Data at Discharge: WBC 10.30 thou/uL (4.3-10.9) 08/22/23 03:08 Hgb 11.0 g/dL (12.0-15.0) L 08/22/23 03:08 Hct 33.4 % (36.0-45.0) L 08/22/23 03:08 Plt Count 329 thou/uL (152-406) 08/22/23 03:08 PT 14.3 SECONDS (9.5-12.5) H 08/19/23 20:10 INR 1.31 08/19/23 20:10 APTT 29.2 SECONDS (24.3-36.9) 08/19/23 20:10 Sodium 135 mEq/L (136-145) L 08/22/23 03:08 Potassium 3.9 mEq/L (3.5-5.1) 08/22/23 03:08 BUN 24 mg/dL (7-18) H 08/22/23 03:08 Creatinine 1.08 mg/dL (0.55-1.02) H 08/22/23 03:08 Glucose 123 mg/dL (74-106) H 08/22/23 03:08 Magnesium 1.9 mg/dL (1.6-2.4) 08/22/23 03:08 Total Bilirubin 0.4 mg/dL (0.2-1.0) 08/19/23 20:10 AST 16 U/L (15-37) 08/19/23 20:10 ALT 40 U/L (13-56) 08/19/23 20:10 Alkaline Phosphatase 70 U/L (45-117) 08/19/23 20:10 Home Medications: Albuterol Inhaler [Ventolin Inhaler*] 2 puff IH Q6H PRN #1 hfa.aer.ad 07/22/20 Albuterol Sulfate [Albuterol Sulfate 0.083% Neb Soln] 2.5 mg IH Q6H PRN 07/22/20 Levothyroxine Sodium 100 mcg PO DAILY 07/22/20 Tiotropium [Spiriva Handihaler*] 1 puff IH BEDTIME 07/22/20 Ascorbic Acid [Vitamin C] 1,000 mg PO DAILY 08/09/23 Cholecalciferol (Vitamin D3) [Vitamin D 5,000 IU Cap*] 1 cap PO DAILY 08/09/23 Apixaban [Eliquis] 5 mg PO BID 2 Days #60 tab 08/12/23 Benzonatate [Tessalon Perle*] 200 mg PO TID PRN #30 cap 08/12/23 Oxycodone HCl/Acetaminophen [Percocet 5/325 Tab*] 1 tab PO Q4H PRN #12 tab 08/12/23 Furosemide [Lasix*] 20 mg PO EVERY 3RD DAY 08/19/23 Fluticasone/Salmeterol [Advair 250-50 Diskus] 1 inh IH BID 08/20/23 Apixaban [Eliquis] 5 mg PO BID 08/22/23 Diltiazem Cd [Cardizem Cd*] 120 mg PO DAILY #30 cap 08/22/23 Metoprolol Tartrate [Lopressor*] 12.5 mg PO DAILY 30 Days #30 tab 08/22/23 Mometasone/Formoterol [Dulera 200 Mcg/5 Mcg Inhaler] 2 puff IH BID inhaler 08/22/23 New Medications: Diltiazem Cd [Cardizem Cd*] 120 mg PO DAILY #30 cap Metoprolol Tartrate [Lopressor*] 12.5 mg PO DAILY 30 Days #30 tab Physician Discharge Instructions: Estefany Ryder presented to the ED with chief complaint of shortness of breath with oxygen saturation of 80%. She had a recent diagnosis of atrial fibrillation with RVR and placed on Cardizem and Eliquis. During her hospital stay she has tolerated Cardizem, metoprolol, continued Eliquis, and has been hemodynamically stable. Cardiology was consulted and recommends changing metoprolol to 12.5 mg twice a day 1. Please call and schedule a follow-up appointment with your PCP in 3-5 days - Please follow-up with your PCP for medication refills/adjustments 2. Please call and schedule a follow-up appointment with Dr. Pat in one week 3. Please call and schedule follow-up appointment with Dr. Armas in one week 4. Continue heart healthy diet 5. activity restrictions, ambulate with caution 6. Return to the ED if symptoms worsen medication changes Metoprolol 12.5 mg by mouth twice daily Diet: AHA Activity: Ad veronica Followup: Fredy Armas MD [ACTIVE - CAN ADMIT] - Francis Pat MD [ACTIVE - CAN ADMIT] - Johnny Brandon MD [Primary Care Provider] -
--- NOTE | 2023-08-22 15:24 | P.CNS ---
Date of Consult: 08/22/23 Chief Complaint: Pneumonia History of Present Illness: Patient with PMH of COPD, Atrial fibrillation presented with worsening SOB and low BP, patient denies having any chest pain, no palpitations, no syncope. Allergies adenosine Allergy (Verified 07/22/20 07:55) Rash caffeine Allergy (Verified 07/22/20 07:55) Rash cefaclor Allergy (Verified 07/22/20 07:55) Rash cephalexin Allergy (Verified 07/22/20 07:55) Rash Cephalosporins Allergy (Verified 07/22/20 07:55) Rash clarithromycin Allergy (Verified 07/22/20 07:55) Rash codeine Allergy (Verified 07/22/20 07:55) Rash dexamethasone [From Maxitrol] Allergy (Verified 07/22/20 07:55) Rash erythromycin base Allergy (Verified 07/22/20 07:55) Rash ibuprofen Allergy (Verified 07/22/20 07:55) Rash indomethacin [From Indocin] Allergy (Verified 07/22/20 07:55) Rash metronidazole [From Flagyl] Allergy (Verified 07/22/20 07:55) Rash naproxen [From Naprosyn] Allergy (Verified 07/22/20 07:55) Rash neomycin [From Maxitrol] Allergy (Verified 07/22/20 07:55) Rash NSAIDS (Non-Steroidal Anti-Inflamma Allergy (Verified 07/22/20 07:55) Rash polymyxin B [From Maxitrol] Allergy (Verified 07/22/20 07:55) Rash Sulfa (Sulfonamide Antibiotics) Allergy (Verified 07/22/20 07:55) Rash tetracycline [From Sumycin] Allergy (Verified 07/22/20 07:55) Rash Tetracyclines Allergy (Verified 07/22/20 07:55) Rash amox tr-k clv 500-125 Allergy (Uncoded 07/22/20 07:55) Rash Chemical stress test Allergy (Uncoded 07/22/20 07:55) Rash EES 400 Allergy (Uncoded 07/22/20 07:55) Rash fulvicin Allergy (Uncoded 07/22/20 07:55) Rash naflon 600 Allergy (Uncoded 07/22/20 07:55) Rash neodecadron ophthalmic soln Allergy (Uncoded 07/22/20 07:55) Rash promine Allergy (Uncoded 07/22/20 07:55) Rash Sodium pentathol Allergy (Uncoded 07/22/20 07:55) Rash Home Medications: Albuterol Inhaler [Ventolin Inhaler*] 2 puff IH Q6H PRN #1 hfa.aer.ad 07/22/20 Albuterol Sulfate [Albuterol Sulfate 0.083% Neb Soln] 2.5 mg IH Q6H PRN 07/22/20 Levothyroxine Sodium 100 mcg PO DAILY 07/22/20 Tiotropium [Spiriva Handihaler*] 1 puff IH BEDTIME 07/22/20 Ascorbic Acid [Vitamin C] 1,000 mg PO DAILY 08/09/23 Cholecalciferol (Vitamin D3) [Vitamin D 5,000 IU Cap*] 1 cap PO DAILY 08/09/23 Apixaban [Eliquis] 5 mg PO BID 2 Days #60 tab 08/12/23 Benzonatate [Tessalon Perle*] 200 mg PO TID PRN #30 cap 08/12/23 Oxycodone HCl/Acetaminophen [Percocet 5/325 Tab*] 1 tab PO Q4H PRN #12 tab 08/12/23 Furosemide [Lasix*] 20 mg PO EVERY 3RD DAY 08/19/23 Fluticasone/Salmeterol [Advair 250-50 Diskus] 1 inh IH BID 08/20/23 Apixaban [Eliquis] 5 mg PO BID 08/22/23 Diltiazem Cd [Cardizem Cd*] 120 mg PO DAILY #30 cap 08/22/23 Metoprolol Tartrate [Lopressor*] 12.5 mg PO DAILY 30 Days #30 tab 08/22/23 Mometasone/Formoterol [Dulera 200 Mcg/5 Mcg Inhaler] 2 puff IH BID inhaler 08/22/23 - Past Medical/Surgical History Diabetic: No -: Breast cancer -: Lymphoma -: Lung cancer -: COPD -: Lobectomy -: R breast mastectomy -: Hysterectomy -: Cholecystectomy -: Cataract sx igor - Family History Father Medical History: Heart disease Mother Medical History: Lung disease Notes: emphysema - Social History Alcohol use: No CD- Drugs: No Caffeine use: Yes Place of Residence: Home Review of Systems 10-point ROS is otherwise unremarkable Physical Examination Temp Pulse Resp BP Pulse Ox 98.2 F 79 17 107/52 L 96 08/22/23 12:00 08/22/23 12:00 08/22/23 12:00 08/22/23 12:00 08/22/23 12:00 General: Alert, Oriented x3 HEENT: Atraumatic Neck: Supple Respiratory: Clear to auscultation bilaterally Cardiovascular: No edema, Normal S1 S2 Gastrointestinal: Normal bowel sounds - Problems (1) Atrial fibrillation Current Visit: No Status: Acute Plan: Continue Diltazem 120 mg daily lower Lopressor to 12.5 mg po BID Continue Eliquis 5 mg po BID
--- NOTE | 2023-08-25 13:34 | EKG ---
Test Date: 2023-08-20 Test Time: 17:22:19 [employer]: LARS MEASUREMENT RESULTS: Intervals: Rate: 147 [place]: QRSD: 90 QT: 284 QTc: 444 [place]: P: [place]: QRS: 54 T: -36 INTERPRETIVE STATEMENTS: Atrial fibrillation with rapid ventricular response Anterior infarct, age undetermined Marked ST abnormality, possible inferior subendocardial injury Abnormal ECG Compared to ECG 08/19/2023 16:45:24 ST (T wave) deviation now present Sinus rhythm no longer present Myocardial infarct finding still present Electronically Signed On 08-25-23 13:21:26 CDT by Lacho Dwyer
== END 2023-08-22 15:57 | disposition home or self-care (01) | DRG 193 ==
LOC: ER 16:12 → ERHOLD 20:30 → 2ND 21:29
PROVIDERS: ADMIT Hospitalist; ATTEND Hospitalist
DX: J18.9 Pneumonia, unspecified organism (principal); J96.01 Acute respiratory failure with hypoxia; I50.32 Chronic diastolic (congestive) heart failure; J44.0 Chronic obstructive pulmonary disease with (acute) lower respiratory infection; N17.9 Acute kidney failure, unspecified; J44.1 Chronic obstructive pulmonary disease with (acute) exacerbation; C85.90 Non-Hodgkin lymphoma, unspecified, unspecified site; I48.91 Unspecified atrial fibrillation; N18.30 Chronic kidney disease, stage 3 unspecified; I25.10 Atherosclerotic heart disease of native coronary artery without angina pectoris; T38.0X5A Adverse effect of glucocorticoids and synthetic analogues, initial encounter; Z88.5 Allergy status to narcotic agent; Z88.1 Allergy status to other antibiotic agents; Z90.2 Acquired absence of lung [part of]; Z85.3 Personal history of malignant neoplasm of breast; Z88.8 Allergy status to other drugs, medicaments and biological substances; Z90.49 Acquired absence of other specified parts of digestive tract; Z90.11 Acquired absence of right breast and nipple; Z79.02 Long term (current) use of antithrombotics/antiplatelets; Z79.52 Long term (current) use of systemic steroids; Z79.899 Other long term (current) drug therapy; Z79.890 Hormone replacement therapy; Z90.710 Acquired absence of both cervix and uterus; Z85.118 Personal history of other malignant neoplasm of bronchus and lung
CPT/HCPCS: 36415; 71045; 80048; 80076; 81001; 83605; 83735; 83880; 84145; 84484; 85025; 85610; 85730; 87040; 93005; 94640; 94760; 96365; 99285; J3535; J7030; J7512; J7613; J7614; J7644

== ENCOUNTER 2024-03-20 16:53 | Inpatient (IN) | payer OTHER ==
[2024-03-20] MEDS ORDERED: NA CHLORIDE 0.9% 250 ML ONE ×2 (17:30→19:15)
[2024-03-20 17:37] LABS: Absolute Basophils 0.1 K/uL (0-0.5); Absolute Eosinophils 0.2 K/uL (0-0.5); Absolute Lymphocytes (CBC) 2.7 K/uL (0.7-4.9); Absolute Monocytes 0.8 K/uL (0.1-1.3); Absolute Neutrophil 3.7 K/uL (1.8-8.0); Basophils % 0.9 % (0-1.3); Eosinophils % 2.6 % (0-4.4); Hematocrit 36.4 % (36.0-45.0); Hemoglobin 12.1 g/dL (12.0-15.0); Lymphocytes % 36.1 % (15.3-44.8); MCH 30.5 pg (27.0-35.0); MCHC 33.1 g/dL (32.0-36.0); MCV 92.3 fL (80-100); Neutrophils % 49.4 % (41.7-73.7); Nucleated Red Blood Cells % 0.1 % (0-0); Platelets 260 thou/uL (152-406); RBC Red Blood Cell Count 3.95 M/uL (3.86-4.86); Red Cell Distribution Width 14.6 % (12.1-15.2)
[2024-03-20 17:44] LABS: PTT, Activated Partial Thromb 35.9 SECONDS (24.3-36.9); Protime INR 1.26
[2024-03-20 17:55] LABS: ALT/SGPT 29 U/L (13-56); AST/SGOT 34 U/L (15-37); Albumin 2.7 g/dL (3.4-5.0); Albumin/Globulin Ratio 0.8 (1.1-1.8); Alkaline Phosphatase 53 U/L (45-117); Anion Gap 9.4 mEq/L (5.0-15.0); BUN Blood Urea Nitrogen 26 mg/dL (7-18); Bicarbonate 25 mEq/L (21-32); Bilirubin Total 0.2 mg/dL (0.2-1.0); Globulin 3.6 g/dL (2.3-3.5); Glomerular Filtration Rate 51 ml/min (=/>90); Glucose Level 92 mg/dL (74-106); Magnesium 2.1 mg/dL (1.6-2.4); Potassium 4.4 mEq/L (3.5-5.1); Protein, Total 6.3 g/dL (6.4-8.2); Sodium Level 140 mEq/L (136-145)
[2024-03-20 18:01] LABS: Bilirubin Direct < 0.2 mg/dL (0-0.2); Troponin High Sensitivity < 3.0 pg/mL (<58.9)
--- NOTE | 2024-03-20 18:13 | RAD REPORT ---
EXAM: Chest Single View HISTORY: syncope COMPARISON: 08/19/2023 FINDINGS: LUNGS/PLEURA: Similar volume loss in the left lung which may be postsurgical. Left apical scarring. R ight suprahilar nodular density noted. MEDIASTINUM: The mediastinal silhouette is within normal limits. CARDIAC: The cardiac silhouette is within normal limits. UPPER ABDOMEN: No significant abnormality. BONES: No acute fracture. LINES/TUBES/OTHER: Surgical clips in the right axilla. IMPRESSION: No evidence of acute cardiopulmonary disease. Similar chronic changes.
--- NOTE | 2024-03-20 18:24 | RAD REPORT ---
EXAMINATION: CT HEAD WITHOUT CONTRAST CLINICAL INDICATION: Female, 83 years old.SYNCOPE TECHNIQUE: Axial CT images from the skull base to the vertex without intravenous contrast. Coronal an d sagittal reformatted images were created from the data set. One or more of the following dose reduction techniques were used: Automated exposure control, adjustment of the mA and/or kV according to patient size, and/or iterative reconstruction. Unless otherwise specified, incidental findings do not require dedicated imaging follow-up. [id number]. COMPARISON: No prior exam. FINDINGS: INTRACRANIAL: No acute intracranial hemorrhage. No hydrocephalus. No mass effect or midline shift. Mi ld chronic small vessel ischemic changes. VASCULATURE: No visualized abnormalities in the arteries or dural venous sinuses. SCALP/SKULL: No significant soft tissue or osseous abnormalities. SINUSES: The visualized paranasal sinuses and mastoid air cells are predominantly clear. IMPRESSION: No acute intracranial abnormality.
--- NOTE | 2024-03-20 19:06 | ER ---
Nurse's Notes [facility] Name: Estefany Ryder Age: 83 yrs Sex: Female : 1940 Arrival Date: 03/20/2024 Time: 16:53 Bed 7 Private MD: Diagnosis: Syncope Presentation: 03/20 16:53 Risk Assessment: Do you want to hurt yourself or someone else? Patient reports no aa5 desire to harm self or others. 16:53 Acuity: DERIK 3 aa5 16:53 Coronavirus screen: At this time, the client does not indicate any symptoms associated aa5 with coronavirus-19. Ebola Screen: Patient denies travel to an Ebola-affected area in the 21 days before illness onset. Initial Sepsis Screen: Does the patient meet any 2 criteria? No. Patient's initial sepsis screen is negative. Does the patient have a suspected source of infection? No. Patient's initial sepsis screen is negative. Onset of symptoms was March 20, 2024. 16:53 Method Of Arrival: EMS: [facility] aa5 16:53 Chief complaint: Pt had syncopal episode witnessed by family. EMS reports pt felt aa5 lightheaded and was assisted to sit on chair by family and pt started "shaking". Upon EMS arrival pt was A\\T\\O x 4 and awake. Pt did not fall. Historical: - PMHx: 16:53 BREAST CA; COPD; Lung CA; LYMPHOMA; CHF (Unknown); atrial fib (Unknown); aa5 - PSHx: 16:53 Cholecystectomy; Left lobectomy; right mastectomy; Total abdominal hysterectomy; aa5 - Immunization history:: Adult Immunizations up to date. - Infectious Disease History:: Denies. - Family history:: not pertinent. - Hospitalizations: : No recent hospitalization is reported. - Social history:: Smoking status: unknown. Screenin:28 [place] ED Fall Risk Assessment (Adult) History of falling in the last 3 months, bm8 including since admission No falls in past 3 months (0 pts) Confusion or Disorientation No (0 pts) Intoxicated or Sedated No (0 pts) Impaired Gait No (0 pts) Mobility Assist Device Used No (0 pt) Altered Elimination No (0 pt) Score/Fall Risk Level 0 - 2 = Low Risk Oriented to surroundings, Maintained a safe environment, Educated pt \\T\\ family on fall prevention, incl call for assistance when getting out of bed, Assessed \\T\\ reinforced patient's understanding of fall precautions, Hourly rounding (assess needs \\T\\ fall precautionary measures) done, Used ambulatory aids as needed (educated on \\T\\ assisted with), Used gait belt as appropriate. Abuse screen: Denies threats or abuse. Nutritional screening: No deficits noted. Tuberculosis screening: No symptoms or risk factors identified. Assessment: 16:53 General: Appears comfortable, Behavior is calm, cooperative, Denies fever, feeling ill, aa5 fatigue, chills. Pain: Denies pain. Neuro: Level of Consciousness is awake, alert, obeys commands, Oriented to person, place, time, situation, Appropriate for age Reports feeling lightheaded. . Cardiovascular: Heart tones S1 S2 present Rhythm is regular. Respiratory: Airway is patent Respiratory effort is even, unlabored, Respiratory pattern is regular, symmetrical. GI: Abdomen is round non-distended, Patient currently denies diarrhea, nausea, vomiting. : No signs and/or symptoms were reported regarding the genitourinary system. EENT: No signs and/or symptoms were reported regarding the EENT system. Derm: Skin is pink, warm \\T\\ dry. Musculoskeletal: Range of motion: intact in all extremities. 17:40 Reassessment: Patient is alert, oriented x 3, equal unlabored respirations, skin aa5 warm/dry/pink. 18:10 Reassessment: Patient is alert, oriented x 3, equal unlabored respirations, skin aa5 warm/dry/pink. 19:28 Reassessment: Patient appears in no apparent distress at this time. Patient and/or bm8 family updated on plan of care and expected duration. Pain level reassessed. Patient is alert, oriented x 3, equal unlabored respirations, skin warm/dry/pink. General: Appears in no apparent distress. comfortable, Behavior is calm, cooperative, appropriate for age. Pain: Denies pain. Neuro: No deficits noted. Level of Consciousness is awake, alert, obeys commands, Oriented to person, place, time, situation, Appropriate for age. Cardiovascular: Denies chest pain, Heart tones S1 S2 present Capillary refill < 3 seconds in bilateral fingers Patient's skin is warm and dry. Respiratory: Airway is patent Respiratory effort is even, unlabored, Respiratory pattern is regular, symmetrical, Breath sounds are clear bilaterally. GI: No signs and/or symptoms were reported involving the gastrointestinal system. : No signs and/or symptoms were reported regarding the genitourinary system. EENT: No signs and/or symptoms were reported regarding the EENT system. Derm: No signs and/or symptoms reported regarding the dermatologic system. Musculoskeletal: No signs and/or symptoms reported regarding the musculoskeletal system. Vital Signs: 16:53 BP 132 / 47; Pulse 77; Resp 16 S; Temp 98.4(O); Pulse Ox 98% on R/A; Pain 0/10; aa5 17:40 BP 127 / 60; Pulse 77; Resp 18 S; Pulse Ox 98% on R/A; aa5 18:10 BP 122 / 60; Pulse 73; Resp 16 S; Pulse Ox 97% on R/A; aa5 19:28 BP 130 / 65; Pulse 69; Resp 18; Temp 98.4; Pulse Ox 99% ; Pain 0/10; bm8 20:01 BP 132 / 67; Pulse 66; Resp 18; Temp 98.4; Pulse Ox 100% ; Pain 0/10; bm8 16:53 Pain Scale: Adult aa5 19:28 Pain Scale: Adult bm8 20:01 Pain Scale: Adult bm8 Oliver Coma Score: 19:28 Eye Response: spontaneous(4). Motor Response: obeys commands(6). Verbal Response: bm8 oriented(5). Total: 15. ED Course: 16:53 Arm band placed on Patient placed. aa5 16:53 Report given to MICHEL Correia and MICHEL Seo. aa5 16:53 Patient has correct armband on for positive identification. Placed in gown. Bed in low aa5 position. Call light in reach. Side rails up X2. Adult w/ patient. Client placed on continuous cardiac and pulse oximetry monitoring. NIBP monitoring applied. hall monitor on. Pulse ox on. NIBP on. 17:12 Patient arrived in ED. aa5 17:12 Isabel Gerard, MICHEL is Primary Nurse. aa5 17:16 Beto Norman MD is Attending Physician. rn 17:20 Initial lab(s) drawn, by ga, sent to lab. Inserted saline lock: 22 gauge in left aa5 antecubital area, using aseptic technique. Blood collected. Flushed with 10 mL NS. 17:20 EKG done, by ED staff, reviewed by Beto Norman MD. aa5 17:47 Chest Single View XRAY In Process Unspecified. EDMS 17:56 CT Head Brain wo Cont In Process Unspecified. EDMS 18:08 Triage completed. aa5 19:05 Ramirez Ch MD is Hospitalizing Provider. rn 19:28 Patient has correct armband on for positive identification. Placed in gown. Bed in low bm8 position. Call light in reach. Side rails up X2. Adult w/ patient. Client placed on continuous cardiac and pulse oximetry monitoring. NIBP monitoring applied. hall monitor on. Pulse ox on. NIBP on. Door closed. Noise minimized. Warm blanket given. Pillow given. Verbal reassurance given. Head of bed. 19:30 No provider procedures requiring assistance completed. Patient maintains SpO2 bm8 saturation greater than 95% on room air. 20:02 Provided Education on: need for admission. bm8 20:02 Patient admitted, IV remains in place. bm8 Administered Medications: 17:40 Drug: NS 0.9% IV 250 ml IV at bolus once; to be given as a bolus over 30 minutes Route: aa5 IV; Rate: bolus; Site: left antecubital; 18:10 Follow up: IV Status: Completed infusion; IV Intake: 250ml aa5 20:02 Follow up: Response: No adverse reaction; IV Status: Completed infusion; IV Intake: bm8 250ml Medication: 19:28 VIS not applicable for this client. bm8 Intake: 18:10 IV: 250ml; Total: 250ml. aa5 20:02 IV: 250ml; Total: 500ml. bm8 Outcome: 19:06 Decision to Hospitalize by Provider. rn 20:02 Admitted to Med/surg accompanied by nurse, via wheelchair, room 204, with chart, bm8 20:02 Condition: stable 20:02 Instructed on the need for admit, medication usage, safety practices, Demonstrated understanding of instructions, follow-up care, medications, 20:34 Patient left the ED. bm8 Signatures: Dispatcher [employer] EDMS Beto Norman MD MD rn Calderon, Audri, RN RN aa5 Masood Boykin RN RN bm8 Corrections: (The following items were deleted from the chart) 18:09 16:53 Allergies: achromycin; aa5 aa5 18:09 16:53 Allergies: adenosine; aa5 aa5 18: 16:53 Allergies: Advil; aa5 aa5 19:42 19:30 Inserted saline lock: 22 gauge in left antecubital area, using aseptic technique. aa5 Blood collected. Flushed with 10 mL NS bm8 19:43 19:28 NS 0.9% IV 250 ml IV at bolus in left antecubital bm8 aa5
--- NOTE | 2024-03-20 19:06 | EDPHYS ---
Physician Documentation [facility] Name: Estefany Ryder Age: 83 yrs Sex: Female : 1940 Arrival Date: 03/20/2024 Time: 16:53 Bed 7 Private MD: ED Physician Beto Norman HPI: 03/20 17:42 This 83 yrs old Female presents to ER via Unassigned with complaints of Syncope. rn 17:43 The patient has experienced syncope. Onset: The symptoms/episode began/occurred just rn prior to arrival. Associated injury: The patient did not suffer any apparent associated injury. Current symptoms: Currently, the patient is not experiencing any symptoms. The patient has not experienced similar symptoms in the past. Patient reports felt lightheaded and dizzy, sat down and passed out. Did not fall or injure herself. Was brief episode and now feels better. Reports recently switched back to her normal dose of metoprolol for her A-fib after prescription errors. Denies preceding chest pain or current chest pain. No shortness of breath. No abdominal pain. No back pain. Family member reports heart rate was 42 during her syncopal episode.. Historical: - PMHx: 16:53 BREAST CA; COPD; Lung CA; LYMPHOMA; CHF (Unknown); atrial fib (Unknown); aa5 - PSHx: 16:53 Cholecystectomy; Left lobectomy; right mastectomy; Total abdominal hysterectomy; aa5 - Immunization history:: Adult Immunizations up to date. - Infectious Disease History:: Denies. - Family history:: not pertinent. - Hospitalizations: : No recent hospitalization is reported. - Social history:: Smoking status: unknown. ROS: 17:43 Constitutional: Negative for fever, chills, and weight loss, Neck: Negative for injury, rn pain, and swelling, Cardiovascular: Negative for chest pain, palpitations, and edema, Respiratory: Negative for shortness of breath, cough, wheezing, and pleuritic chest pain, Abdomen/GI: Negative for abdominal pain, nausea, vomiting, diarrhea, and constipation, MS/Extremity: Negative for injury and deformity, Skin: Negative for injury, rash, and discoloration, Neuro: Negative for headache, weakness, numbness, tingling, and seizure, Exam: 17:43 Constitutional: This is a well developed, well nourished patient who is awake, alert, rn and in no acute distress. Head/Face: Normocephalic, atraumatic. ENT: Dry mucous membranes Neck: No Meningismus. Cardiovascular: Regular rate and rhythm. No pulse deficits. Respiratory: No increased work of breathing, no retractions or nasal flaring. Abdomen/GI: Soft, non-tender MS/ Extremity: Pulses equal, no cyanosis. Neurovascular intact. Full, normal range of motion. Equal circumference. Neuro: Awake and alert, GCS 15, oriented to person, place, time, and situation. Cranial nerves II-XII grossly intact. Motor strength 5/5 in all extremities. Sensory grossly intact. 17:49 ECG was reviewed by the Attending Physician. rn Vital Signs: 16:53 BP 132 / 47; Pulse 77; Resp 16 S; Temp 98.4(O); Pulse Ox 98% on R/A; Pain 0/10; aa5 17:40 BP 127 / 60; Pulse 77; Resp 18 S; Pulse Ox 98% on R/A; aa5 18:10 BP 122 / 60; Pulse 73; Resp 16 S; Pulse Ox 97% on R/A; aa5 19:28 BP 130 / 65; Pulse 69; Resp 18; Temp 98.4; Pulse Ox 99% ; Pain 0/10; bm8 20:01 BP 132 / 67; Pulse 66; Resp 18; Temp 98.4; Pulse Ox 100% ; Pain 0/10; bm8 16:53 Pain Scale: Adult aa5 19:28 Pain Scale: Adult bm8 20:01 Pain Scale: Adult bm8 Ola Coma Score: 19:28 Eye Response: spontaneous(4). Motor Response: obeys commands(6). Verbal Response: bm8 oriented(5). Total: 15. MDM: 17:16 Medical Screening Exam initiated rn 19:03 Differential Diagnosis: cardiac arrhythmia, cerebrovascular accident, emotional rn response, idiopathic syncope, vasovagal episode. Data reviewed: vital signs, nurses notes, lab test result(s), EKG, radiologic studies, CT scan, plain films, and as a result, I will admit patient. Consideration of Admission/Observation Patient was admitted/placed on observation. Escalation of care including admission/observation considered. Counseling: I had a detailed discussion with the patient and/or guardian regarding the historical points, exam findings, and any diagnostic results supporting the discharge/admit diagnosis, lab results, radiology results, the need for further work-up and treatment in the hospital. Response to treatment: the patient's symptoms have mildly improved after treatment, and as a result, I will admit patient. ED course: Patient reports this is second episode of syncope in the last week. No acute findings and workup. Given reported bradycardia at home during episode will observe to hospitalist service. No episodes of bradycardia while here.. 03/20 17:22 Order name: Basic Metabolic Panel; Complete Time: 18:16 rn 03/20 17:22 Order name: CBC with Diff; Complete Time: 18:16 rn 03/20 17:22 Order name: Hepatic Function; Complete Time: 18:16 rn 03/20 17:22 Order name: Magnesium; Complete Time: 18:16 rn 03/20 17:22 Order name: Protime (+inr); Complete Time: 18:16 rn 03/20 17:22 Order name: Ptt, Activated; Complete Time: 18:16 rn 03/20 17:22 Order name: Troponin High Sensitivity; Complete Time: 18:16 rn 03/20 17:22 Order name: Urinalysis w/ reflexes; Complete Time: 19:31 rn 03/20 19:37 Order name: Urinalysis w/ reflexes EDWV 03/20 19:37 Order name: CBC with Automated Diff EDMS 03/20 19:37 Order name: CBC with Automated Diff EDMS 03/20 19:37 Order name: Comprehensive Metabolic Panel EDWV 03/20 19:37 Order name: Comprehensive Metabolic Panel EDWV 03/20 19:37 Order name: Troponin High Sensitivity EDWV 03/20 19:37 Order name: Troponin High Sensitivity EDMS 03/20 19:37 Order name: Troponin High Sensitivity EDMS 03/20 19:37 Order name: Troponin High Sensitivity EDMS 03/20 17:22 Order name: CT Head Brain wo Cont; Complete Time: 18:29 rn 03/20 17:22 Order name: Chest Single View XRAY; Complete Time: 18:16 rn 03/20 19:40 Order name: Chest For Pe Angio EDMS 03/20 17:22 Order name: Cardiac monitoring; Complete Time: 17:28 rn 03/20 17:22 Order name: EKG - Nurse/Tech; Complete Time: 17:28 rn 03/20 17:22 Order name: IV Saline Lock; Complete Time: 17:28 rn 03/20 17:22 Order name: Labs collected and sent; Complete Time: 17: rn 03/20 17:22 Order name: NPO; Complete Time: 17:28 rn 03/20 17:22 Order name: O2 Per Protocol; Complete Time: 17:28 rn 03/20 17:22 Order name: O2 Sat Monitoring; Complete Time: 17:28 rn EC:49 Rate is 77 beats/min. Rhythm is regular. QRS [place] is Normal. [place] interval is normal. QRS rn interval is normal. QT interval is normal. No Q waves. T waves are Normal. No ST changes noted. Clinical impression: NSR w/ Non-specific ST/T Changes. Interpreted by me. Reviewed by me. Administered Medications: 17:40 Drug: NS 0.9% IV 250 ml IV at bolus once; to be given as a bolus over 30 minutes Route: aa5 IV; Rate: bolus; Site: left antecubital; 18:10 Follow up: IV Status: Completed infusion; IV Intake: 250ml aa5 20:02 Follow up: Response: No adverse reaction; IV Status: Completed infusion; IV Intake: bm8 250ml Disposition Summary: 03/20/24 19:06 Hospitalization Ordered Notes: Hospitalization Status: Observation rn Provider: Ramirez Ch rn Location: Telemetry/MedSurg (observation) rn Condition: Stable rn Problem: new rn Symptoms: have improved rn Bed/Room Type: Standard rn Room Assignment: 204(03/20/24 19:47) rv1 Diagnosis - Syncope rn Forms: - Medication Reconciliation Form rn - SBAR form rn - Leadership Thank You Letter rn Signatures: Dispatcher [employer] EDBeto Cota MD MD rn Calderon, Audri RN RN aa5 Tequila Pineda rv1 Masood Boykin RN RN bm8 Corrections: (The following items were deleted from the chart) 17:23 17:23 BASIC METABOLIC PANEL+C.LAB.BRZ ordered. EDMS EDMS 17:23 17:23 CBC+H.LAB.BRZ ordered. EDMS EDMS 17:23 17:23 HEPATIC FUNCTION+C.LAB.BRZ ordered. EDMS EDMS 17:23 17:23 MAGNESIUM+C.LAB.BRZ ordered. EDMS EDMS 17: 17:23 PROTIME (+INR)+COAG.LAB.BRZ ordered. EDMS EDMS 17: 17:23 PTT, ACTIVATED+COAG.LAB.BRZ ordered. EDMS EDMS 17: 17:23 Troponin High Sensitivity+C.LAB.BRZ ordered. EDMS EDMS 17: 17:23 Urinalysis+U.LAB.BRZ ordered. EDMS EDMS 17:23 17:23 Head Brain Wo Cont+CT.RAD.BRZ ordered. EDMS EDMS 17:23 17:23 Chest Single View+RAD.RAD.BRZ ordered. EDMS EDMS 17:44 17:43 Constitutional: Negative for fever, chills, and weight loss, Cardiovascular: rn Negative for chest pain, palpitations, and edema, Respiratory: Negative for shortness of breath, cough, wheezing, and pleuritic chest pain, Abdomen/GI: Negative for abdominal pain, nausea, vomiting, diarrhea, and constipation, MS/Extremity: Negative for injury and deformity, Skin: Negative for injury, rash, and discoloration, Neuro: Negative for headache, weakness, numbness, tingling, and seizure, rn 18:09 16:53 Allergies: achromycin; aa5 aa5 18:09 16:53 Allergies: adenosine; aa5 aa5 18:09 16:53 Allergies: Advil; aa5 aa5 19:47 19:06 rn rv1
[2024-03-20 19:12] LABS: Specific Gravity 1.012 (1.005-1.030); Sqamous Epithelial None Seen /HPF (None Seen); Urine Bacteria None Seen /HPF (<20); Urine Bilirubin NEGATIVE (Negative); Urine Blood Negative (Negative); Urine Clarity Clear (Clear); Urine Color Colorless (Yellow); Urine Culture Reflex Order NOT NEEDED; Urine Glucose NEGATIVE (Negative); Urine Ketones NEGATIVE (Negative); Urine Microscopic Reflex YN ORDER UMIC; Urine Mucus Slight /HPF (None Seen); Urine Nitrite NEGATIVE (Negative); Urine Protein NEGATIVE (Negative); Urine RBC <5 /HPF (None Seen); Urine Urobilinogen Normal (Normal); Urine WBC <5 /HPF (<5); Urine pH 6.5 (5.0-7.0)
[2024-03-20] MEDS ORDERED: ACETAMINOPHEN 325 MG TABLET PO PRN (19:30)
[2024-03-20] MEDS ORDERED: ONDANSETRON 4 MG/2 ML VIAL IV PRN (19:30)
--- NOTE | 2024-03-20 19:36 | P.HP ---
Certification for Inpatient Patient admitted to: Observation With expected LOS: <2 Midnights Practitioner: I am a practitioner with admitting privileges, knowledge of patient current condition, hospital course, and medical plan of care. Services: Services provided to patient in accordance with Admission requirements found in Title 42 Section 412.3 of the Code of Federal Regulations Patient History Date of Service: 03/20/24 Reason for admission: Syncope History of Present Illness: 83-year-old female with past medical history of atrial fibrillation, CHF, lung cancer, COPD, breast cancer, lymphoma, smoker who was brought to ER with syncopal episode.. Patient is a poor historian. States that the patient feeling dizzy and lightheaded and she sat down and passed out. Did not lose her consciousness. Did not fall or injure herself. History of brief episode and returned back to normal. Denies any chest pain. Denies any shortness of breath. No nausea vomiting or diarrhea. Family states that her heart rate was 42 at the time of syncopal episode. Patient was assessed in the ER and was admitted for further management of syncope Allergies adenosine Allergy (Verified 07/22/20 07:55) Rash caffeine Allergy (Verified 07/22/20 07:55) Rash cefaclor Allergy (Verified 07/22/20 07:55) Rash cephalexin Allergy (Verified 07/22/20 07:55) Rash Cephalosporins Allergy (Verified 07/22/20 07:55) Rash clarithromycin Allergy (Verified 07/22/20 07:55) Rash codeine Allergy (Verified 07/22/20 07:55) Rash dexamethasone [From Maxitrol] Allergy (Verified 07/22/20 07:55) Rash erythromycin base Allergy (Verified 07/22/20 07:55) Rash ibuprofen Allergy (Verified 07/22/20 07:55) Rash indomethacin [From Indocin] Allergy (Verified 07/22/20 07:55) Rash metronidazole [From Flagyl] Allergy (Verified 07/22/20 07:55) Rash naproxen [From Naprosyn] Allergy (Verified 07/22/20 07:55) Rash neomycin [From Maxitrol] Allergy (Verified 07/22/20 07:55) Rash NSAIDS (Non-Steroidal Anti-Inflamma Allergy (Verified 07/22/20 07:55) Rash polymyxin B [From Maxitrol] Allergy (Verified 07/22/20 07:55) Rash Sulfa (Sulfonamide Antibiotics) Allergy (Verified 07/22/20 07:55) Rash tetracycline [From Sumycin] Allergy (Verified 07/22/20 07:55) Rash Tetracyclines Allergy (Verified 07/22/20 07:55) Rash amox tr-k clv 500-125 Allergy (Uncoded 07/22/20 07:55) Rash Chemical stress test Allergy (Uncoded 07/22/20 07:55) Rash EES 400 Allergy (Uncoded 07/22/20 07:55) Rash fulvicin Allergy (Uncoded 07/22/20 07:55) Rash naflon 600 Allergy (Uncoded 07/22/20 07:55) Rash neodecadron ophthalmic soln Allergy (Uncoded 07/22/20 07:55) Rash promine Allergy (Uncoded 07/22/20 07:55) Rash Sodium pentathol Allergy (Uncoded 07/22/20 07:55) Rash Home Medications: Albuterol Inhaler [Ventolin Inhaler*] 2 puff IH Q6H PRN #1 hfa.aer.ad 07/22/20 Albuterol Sulfate [Albuterol Sulfate 0.083% Neb Soln] 2.5 mg IH Q6H PRN 07/22/20 Levothyroxine Sodium 100 mcg PO DAILY 07/22/20 Tiotropium [Spiriva Handihaler*] 1 puff IH DAILY 07/22/20 Ascorbic Acid [Vitamin C] 1,000 mg PO DAILY 08/09/23 Cholecalciferol (Vitamin D3) [Vitamin D 5,000 IU Cap*] 1 cap PO DAILY 08/09/23 Fluticasone Propion/Salmeterol [Advair 250-50 Diskus] 1 inh IH PRN PRN 08/20/23 Apixaban [Eliquis] 5 mg PO BID 08/22/23 Diltiazem Cd [Cardizem Cd*] 120 mg PO DAILY #30 cap 08/22/23 Fluticasone Propion/Salmeterol [Advair 250-50 Diskus] 1 each IH BID 03/20/24 Metoprolol Tartrate [Lopressor*] 25 mg PO BID 03/20/24 - Past Medical/Surgical History Diabetic: No Past Medical History: Reviewed- Non-Contributory -: Breast cancer -: Lymphoma -: Lung cancer -: COPD Past Surgical History: Reviewed- Non-Contributory -: Lobectomy -: R breast mastectomy -: Hysterectomy -: Cholecystectomy -: Cataract sx igor - Family History Family History: Reviewed- Non-Contributory - Family History Father -: Heart disease Mother -: Lung disease Notes: emphysema - Social History Smoking Status: Current every day smoker Alcohol use: No CD- Drugs: No Caffeine use: Yes Review of Systems 10-point ROS is otherwise unremarkable Physical Examination - Vital Signs Temperature: 97.4 F Blood Pressure: 123/58 Pulse: 76 Respirations: 18 Pulse Ox (%): 94 - Physical Exam General: Alert, In no apparent distress, Oriented x3 HEENT: Atraumatic, Normocephalic Neck: Supple, No Thyromegaly Respiratory: Clear to auscultation bilaterally, Normal air movement Cardiovascular: No edema, Regular rate/rhythm, Normal S1 S2 Capillary refill: <2 Seconds Gastrointestinal: Soft and benign, W/out hepatosplenomegaly Musculoskeletal: No clubbing Integumentary: No rashes, No breakdown Neurological: Normal speech, Normal strength at 5/5 x4 extr, Cranial nerves 3-12 intact, Normal reflexes 2+ Lymphatics: No axilla or inguinal lymphadenopathy - Studies Laboratory Data (last 24 hrs) 03/20/24 03/20/24 03/20/24 17:26 17:26 17:26 WBC 7.50 Hgb 12.1 Hct 36.4 Plt Count 260 PT 14.0 H INR 1.26 APTT 35.9 Sodium 140 Potassium 4.4 BUN 26 H Creatinine 1.08 H Glucose 92 Magnesium 2.1 Total Bilirubin 0.2 AST 34 ALT 29 Alkaline Phosphatase 53 Assessment and Plan - Plan Syncope Monitor closely under telemetry Syncopal workup Will get a carotid Doppler. Head CT is negative for any acute changes Will also get an echocardiogram Cardiology consulted History of atrial fibrillation Noted to be in bradycardia at the time of syncopal episode Monitor closely under telemetry Electrolytes monitor and replace accordingly Continue home medications including anticoagulation History of CHF Not in exacerbation Continue home medications and titrate as needed Hypertension COPD Antihypertensives titrated Continue home medications Smoking Advise cessation GI/DVT prophylaxis Advanced directive full code Discharge Plan: Home Plan to discharge in: 48 Hours - Advance Directives Does patient have a Living Will: No Does patient have a Durable POA for Healthcare: Yes - Code Status/Comfort Care Code Status: Full Code Time Spent Managing Pts Care (In Minutes): 48
--- NOTE | 2024-03-20 20:47 | RAD REPORT ---
EXAMINATION: CTA CHEST PE CLINICAL INDICATION: Female, 83 years old. PE protocol TECHNIQUE: This examination was performed according to an angiographic protocol with 3D post-processi ng. This involves 3D reconstructions, MIPs, volume rendered images and/or shaded surface rendering. One or more of the following dose reduction techniques were used: Automated exposure control, adjustm ent of the mA and/or kV according to patient size, and/or iterative reconstruction. Unless otherwise specified, incidental findings do not require dedicated imaging follow-up. [id number]. COMPARISON: 08/09/2023 FINDINGS: LOWER NECK: Visualized thyroid gland and soft tissues are normal. LUNGS AND AIRWAYS: Chronic mild consolidation medial right lung base. Nodule in the right upper lobe near the hilum measures approximately 2.2 cm, previously 2 cm. It appears marginally increased in size. Nodule in the trachea anteriorly measures 7 mm which is new from prior. A few scattered small p ulmonary nodules are also scattered bilaterally. No evidence of acute pneumonia. PLEURA: No pleural effusion. No pneumothorax. Hemidiaphragms are normally positioned. MEDIASTINUM AND LYMPH NODES: Esophagus is distended with particulate matter. Small hiatal hernia. No lymphadenopathy. THORACIC AORTA: Normal caliber and configuration. PULMONARY ARTERIES: No evidence of pulmonary embolism. HEART: Normal heart size. . Mitral annular calcifications. Aortic valve calcifications. Mild coronary calcifications. Small pericardial effusion. OSSEOUS STRUCTURES AND CHEST WALL: Intact. UPPER ABDOMEN: Partially imaged left adrenal nodule measuring approximately 2.7 cm which is increased in size since 08/09/2023. This could reflect metastatic disease. IMPRESSION: No evidence of pulmonary emboli to the subsegmental level. No evidence of edema or pneumonia. Diffusely distended esophagus containing likely ingested food and fluid. Achalasia is a consideration . Right upper lobe lesion and left adrenal nodule are both marginally increased and suspicious for meta static disease. Nodule along the nondependent aspect of the trachea is new from prior. This could reflect adherent se cretions but further evaluation with bronchoscopy would be needed to exclude a small mass.
[2024-03-20 21:21] VITALS: BMI 20.1
[2024-03-20] MEDS ORDERED: ALBUTEROL 2.5 MG/3 ML NEB SOL IH PRN (21:23)
[2024-03-21] MEDS: APIXABAN 5 MG TABLET PO SCH (03:54)
[2024-03-21] MEDS: LEVOTHYROXINE SOD 0.1 MG TAB PO SCH (05:04)
[2024-03-21 05:14] LABS: Absolute Basophils 0.1 K/uL (0-0.5); Absolute Eosinophils 0.2 K/uL (0-0.5); Absolute Lymphocytes (CBC) 2.7 K/uL (0.7-4.9); Absolute Monocytes 0.9 K/uL (0.1-1.3); Absolute Neutrophil 3.1 K/uL (1.8-8.0); Basophils % 0.7 % (0-1.3); Eosinophils % 3.2 % (0-4.4); Hematocrit 34.5 % (36.0-45.0); Hemoglobin 11.5 g/dL (12.0-15.0); Lymphocytes % 39.1 % (15.3-44.8); MCH 30.6 pg (27.0-35.0); MCHC 33.4 g/dL (32.0-36.0); MCV 91.6 fL (80-100); MPV 7.1 fL (7.6-11.3); Monocytes % 12.5 % (3.3-12.3); Neutrophils % 44.5 % (41.7-73.7); Nucleated Red Blood Cells % 0.1 % (0-0); Platelets 259 thou/uL (152-406); RBC Red Blood Cell Count 3.76 M/uL (3.86-4.86); Red Cell Distribution Width 14.6 % (12.1-15.2)
[2024-03-21 05:44] LABS: Albumin 2.5 g/dL (3.4-5.0); Albumin/Globulin Ratio 0.9 (1.1-1.8); Anion Gap 8.9 mEq/L (5.0-15.0); Bilirubin Total 0.2 mg/dL (0.2-1.0); Globulin 2.9 g/dL (2.3-3.5); Potassium 3.9 mEq/L (3.5-5.1); Protein, Total 5.4 g/dL (6.4-8.2)
--- NOTE | 2024-03-21 06:53 | P.PN ---
Date of Service: 03/21/24 Subjective: felt dizzy/lightheaded prior to admission, described as sitting in car feeling like she was going to pass out, so got out and walked toward house made it fpc when she asked her son to help, he was able to help her to the porch chair, where she passed out as soon as sitting down reportedly had some shaking prior to passing out - only briefly reports was in usual state of health leading up to this event reports ~1 week ago - felt like she was going to pass out for ~1hour intermittently, and BP was low at that time, however never passed out she reports some confusion / prescription error recently. Filled metoprolol script and was 12.5mg BID for last month, but then realized she was supposed to be taking 25mg BID She spoke to her mechanic general operational test and restarted 25mg BID ~3 days ago. 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 Reportedly felt lightheaded/dizzy, sat down on chair started "shaking" and passed out. Denies chest pain, palpitations, shortness of breath. Witnessed by family per chart. They report heart rate of 42 at the time of syncopal episode. Possibly related to medication adjustments of Metoprolol vs dehydration She reports recently switched back to her normal dose metoprolol after prescription error / confusion with dose she was supposed to be taking. She was advised to lower metoprolol to 12.5 mg BID during her last hospitalization back in August however there are multiple metoprolol prescriptions between then and now with different dosage instructions Multiple prescriptions from valentin Caraballo for 12.5 BID over the last few months in additions to multiple prescriptions from [facility] for 3 months supplies of metoprolol 25 mg BID resume metoprolol at 12.5 mg BID for now and monitor on telemetry CXR negative, CT head negative, carotid u/s negative CTA chest (03/20): No PE, edema or pneumonia. Small pericardial effusion. Mitral annular calcifications. Aortic valve calcifications. Mild coronary calcifications. Other findings as noted below. 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 Left Adrenal nodule 2.7cm, previously 2.0. New 7mm nodule in trachea anteriorly. A few s cattered small pulmonary nodules are also scattered bilaterally. Nodule along the nondependent aspect of the trachea is new from prior. This could reflect adherent secretions but further evaluation with bronchoscopy would be needed to exclude a small mass. CTA chest also noted diffusely distended esophagus containing likely ingested food and fluid. She reports some difficulty swallowing, ongoing for several years - likely related to cancer/radiation. Swallowing doesn't feel worse. Unchanged for months. Been ~1-2 years since last EGD/Colonoscopy patient updated on CTA findings. Patient follows up with MD Orta continue supportive care confirm home meds, restart as appropriate Tobacco use cessation advised VTE: home eliquis Code: Full Dispo: Home, ~24hrs Pending cardio recs, Echo Time Spent Managing Pts Care (In Minutes): 55
[2024-03-21] MEDS: DULERA 200/5 (MOMETASONE/FORMOTEROL) INHALER IH SCH (07:00)
--- NOTE | 2024-03-21 07:02 | RAD REPORT ---
EXAMINATION: US CAROTID DUPLEX CLINICAL INDICATION: , 83 years old. syncope. TECHNIQUE: Real-time grayscale, color flow and spectral Doppler sonographic images were obtained of t he extracranial carotid system using a linear transducer. [id number]. COMPARISON: No prior exam. FINDINGS: RIGHT: Common carotid artery: 100 cm/s Internal carotid artery: 74 cm/s External carotid artery: 65 cm/s Right ICA/CCA ratio: 0.7 Plaque None Vertebral artery Antegrade LEFT: Common carotid artery: 67 cm/s Internal carotid artery: 77 cm/s External carotid artery: 66 cm/s lEFT ICA/CCA ratio: 1 Plaque None Vertebral artery Antegrade IMPRESSION: No hemodynamically significant stenosis (greater than 50%) within the extracranial internal carotid a eries.
[2024-03-21] MEDS: ASCORBIC ACID 500 MG TABLET PO SCH (08:58)
[2024-03-21] MEDS: METOPROLOL TAR 25 MG TAB PO SCH (08:58)
[2024-03-21] MEDS: POTASSIUM CL SA 10 MEQ TAB PO ONE (08:58)
[2024-03-21] MEDS: TIOTROPIUM 5 SPRAYS/INHALER IH SCH (08:59)
[2024-03-21] MEDS ORDERED: APIXABAN 5 MG TABLET PO SCH (09:00)
[2024-03-21] MEDS ORDERED: ENOXAPARIN 40 MG/0.4 ML SQ SCH (09:00)
[2024-03-21] MEDS: METOPROLOL XL 25 MG TAB PO SCH (20:42)
[2024-03-22 05:27] LABS: Hematocrit 36.6 % (36.0-45.0); Hemoglobin 12.1 g/dL (12.0-15.0); MCH 30.5 pg (27.0-35.0); MCHC 33.1 g/dL (32.0-36.0); MPV 7.1 fL (7.6-11.3); Platelets 267 thou/uL (152-406); RBC Red Blood Cell Count 3.97 M/uL (3.86-4.86); Red Cell Distribution Width 14.3 % (12.1-15.2)
[2024-03-22 05:54] LABS: Anion Gap 7.2 mEq/L (5.0-15.0); Magnesium 2.1 mg/dL (1.6-2.4); Phosphorus 4.6 mg/dL (2.5-4.9); Potassium 4.2 mEq/L (3.5-5.1)
[2024-03-22 07:25] VITALS: O2SAT 97
[2024-03-22 08:48] VITALS: TEMP 97.4
[2024-03-22] MEDS: DILTIAZEM HCL 120 MG SR CAP PO SCH (08:56)
--- NOTE | 2024-03-22 09:31 | P.PN ---
Date of Service: 03/22/24 Subjective: no lightheadedness/dizziness today; resolved yesterday per patient briefly in a-fib with RVR (HR 130-140s) for few minutes overnight per tele back in sinus rhythm this morning prior to hospitalization, able to ambulate without issues. previously only used cane PRN at night sometimes. 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 Reportedly felt lightheaded/d alexandra, sat down on chair started "shaking" and passed out. Denies chest pain, palpitations, shortness of breath. Witnessed by family per chart. They report heart rate of 42 at the time of syncopal episode. Possibly related to medication adjustments of Metoprolol vs dehydration She reports recently switched back to her normal dose metoprolol after prescription error / confusion with dose she was supposed to be taking. She was advised to lower metoprolol to 12.5 mg BID during her last hospitalization back in August however there are multiple metoprolol prescriptions between then and now with different dosage instructions Multiple prescriptions from valentin Caraballo for 12.5 BID over the last few months in additions to multiple prescriptions from [facility] for 3 months supplies of metoprolol 25 mg BID CXR negative, CT head negative, Carotid u/s negative CTA chest (03/20): No PE, edema or pneumonia. Small pericardial effusion. Mitral annular calcifications. Aortic valve calcifications. Mild coronary calcifications. Other findings as noted below. Echo done 03/22; pending official report. Briefly in a-fib with RVR overnight. (HR 130-140s) Converted back to sinus rhythm after a few minutes. 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 Left Adrenal nodule 2.7cm, previously 2.0. New 7mm nodule in trachea anteriorly. A few scattered small pulmonary nodules are also scattered bilaterally. Nodule along the nondependent aspect of the trachea is new from prior. This could reflect adherent secretions but further evaluation with bronchoscopy would be needed to exclude a small mass. CTA chest also noted diffusely distended esophagus containing likely ingested food and fluid. She reports some difficulty swallowing, ongoing for several years - likely related to cancer/radiation. Swallowing doesn't feel worse. Unchanged for months. Been ~1-2 years since last EGD/Colonoscopy patient updated on CTA findings. Patient follows up with MD Orta continue supportive care confirm home meds, restart as appropriate Tobacco use cessation advised VTE: home eliquis Code: Full Dispo: Home, ~24hrs Pending cardio recs Time Spent Managing Pts Care (In Minutes): 55
[2024-03-22 12:17] VITALS: BP 117/60
--- NOTE | 2024-03-22 13:52 | P.CNS ---
Date of Consult: 03/22/24 Chief Complaint: Syncope History of Present Illness: Patient with PMH of atrial fibrillation, has been having near syncope, denies having any other symptoms, no clear syncope. Allergies adenosine Allergy (Verified 07/22/20 07:55) Rash caffeine Allergy (Verified 07/22/20 07:55) Rash cefaclor Allergy (Verified 07/22/20 07:55) Rash cephalexin Allergy (Verified 07/22/20 07:55) Rash Cephalosporins Allergy (Verified 07/22/20 07:55) Rash clarithromycin Allergy (Verified 07/22/20 07:55) Rash codeine Allergy (Verified 07/22/20 07:55) Rash dexamethasone [From Maxitrol] Allergy (Verified 07/22/20 07:55) Rash erythromycin base Allergy (Verified 07/22/20 07:55) Rash ibuprofen Allergy (Verified 07/22/20 07:55) Rash indomethacin [From Indocin] Allergy (Verified 07/22/20 07:55) Rash metronidazole [From Flagyl] Allergy (Verified 07/22/20 07:55) Rash naproxen [From Naprosyn] Allergy (Verified 07/22/20 07:55) Rash neomycin [From Maxitrol] Allergy (Verified 07/22/20 07:55) Rash NSAIDS (Non-Steroidal Anti-Inflamma Allergy (Verified 07/22/20 07:55) Rash polymyxin B [From Maxitrol] Allergy (Verified 07/22/20 07:55) Rash Sulfa (Sulfonamide Antibiotics) Allergy (Verified 07/22/20 07:55) Rash tetracycline [From Sumycin] Allergy (Verified 07/22/20 07:55) Rash Tetracyclines Allergy (Verified 07/22/20 07:55) Rash amox tr-k clv 500-125 Allergy (Uncoded 07/22/20 07:55) Rash Chemical stress test Allergy (Uncoded 07/22/20 07:55) Rash EES 400 Allergy (Uncoded 07/22/20 07:55) Rash fulvicin Allergy (Uncoded 07/22/20 07:55) Rash naflon 600 Allergy (Uncoded 07/22/20 07:55) Rash neodecadron ophthalmic soln Allergy (Uncoded 07/22/20 07:55) Rash promine Allergy (Uncoded 07/22/20 07:55) Rash Sodium pentathol Allergy (Uncoded 07/22/20 07:55) Rash Home medications list reviewed: Yes Home Medications: Albuterol Inhaler [Ventolin Inhaler*] 2 puff IH Q6H PRN #1 hfa.aer.ad 07/22/20 Albuterol Sulfate [Albuterol Sulfate 0.083% Neb Soln] 2.5 mg IH Q6H PRN 07/22/20 Levothyroxine Sodium 100 mcg PO DAILY 07/22/20 Tiotropium [Spiriva Handihaler*] 1 puff IH DAILY 07/22/20 Ascorbic Acid [Vitamin C] 1,000 mg PO DAILY 08/09/23 Cholecalciferol (Vitamin D3) [Vitamin D 5,000 IU Cap*] 1 cap PO DAILY 08/09/23 Fluticasone Propion/Salmeterol [Advair 250-50 Diskus] 1 inh IH PRN PRN 08/20/23 Apixaban [Eliquis] 5 mg PO BID 08/22/23 Diltiazem Cd [Cardizem Cd*] 120 mg PO DAILY #30 cap 08/22/23 Fluticasone Propion/Salmeterol [Advair 250-50 Diskus] 1 each IH BID 03/20/24 Metoprolol Tartrate [Lopressor*] 25 mg PO BID 03/20/24 - Past Medical/Surgical History Diabetic: No -: Breast cancer -: Lymphoma -: Lung cancer -: COPD -: Lobectomy -: R breast mastectomy -: Hysterectomy -: Cholecystectomy -: Cataract sx igor - Family History Father Medical History: Heart disease Mother Medical History: Lung disease Notes: emphysema - Social History Smoking Status: Unknown if ever smoked Alcohol use: No CD- Drugs: No Caffeine use: Yes Place of Residence: Home Review of Systems 10-point ROS is otherwise unremarkable Physical Examination Temp Pulse Resp BP Pulse Ox 97.4 F 78 16 117/60 98 03/22/24 12:00 03/22/24 12:00 03/22/24 12:00 03/22/24 12:00 03/22/24 12:00 General: Alert, In no apparent distress HEENT: Atraumatic, PERRLA, Mucous membr. moist/pink, EOMI, Sclerae nonicteric Neck: Supple, 2+ carotid pulse no bruit, No LAD, Without JVD or thyroid abnormality Respiratory: Clear to auscultation bilaterally, Normal air movement Cardiovascular: Regular rate/rhythm, Normal S1 S2 Gastrointestinal: Normal bowel sounds, No tenderness Musculoskeletal: No tenderness Integumentary: No rashes Neurological: Normal gait, Normal speech, Normal tone, Normal affect Lymphatics: No axilla or inguinal lymphadenopathy - Problems (1) Atrial fibrillation Current Visit: No Status: Acute Plan: patient is currently in sinus rhythm. continue eliquis 5 mg po BID continue Toprol XL 12.5 mg po BID Continue Diltazem (2) Near syncope Current Visit: Yes Status: Acute Plan: most likely orthostatic, continue current medications.
--- NOTE | 2024-03-22 14:42 | ECHO ---
HEIGHT: 5 ft 2 in WEIGHT: 110 lb 0 oz DATE OF STUDY: 03/22/[address]: Chencho Ch DO 2-DIMENSIONAL: YES M.MODE: YES DOPPLER: YES COLOR FLOW: YES TDS: NO PORTABLE: YES DEFINITY: NO BUBBLE STUDY: NO DIAGNOSIS: SYNCOPE CARDIAC HISTORY: CATHERIZATION: SURGERY: PROSTHETIC VALVE: PACEMAKER: MEASUREMENTS (cm) DIASTOLIC (NORMALS) SYSTOLIC (NORMALS) IVSd 0.9 (0.6-1.2) LA Diam 2.3 (1.9-4.0) LVEF 60-65% LVIDd 3.4 (3.5-5.7) LVIDs 2.1 (2.0-3.5) %FS 37% LVPWd 1.0 (0.6-1.2) Ao Diam 2.4 (2.0-3.7) 2 DIMENSIONAL ASSESSMENT: RIGHT ATRIUM: NORMAL LEFT ATRIUM: NORMAL RIGHT VENTRICLE: NORMAL LEFT VENTRICLE: NORMAL TRICUSPID VALVE: TRACE OF TRICUSPID REGURGITATION MITRAL VALVE: NORMAL PULMONIC VALVE: NORMAL AORTIC VALVE: CALCIFIED PERICARDIAL EFFUSION: NONE AORTIC ROOT: NORMAL LEFT VENTRICULAR WALL MOTION: NORMAL. DOPPLER/COLOR FLOW: NORMAL. COMMENTS: 1. NORMAL LEFT VENTRICULAR SYSTOLIC FUNCTION, EJECTION FRACTION 60-65%, NORMAL WALL MOTION. 2. NORMAL DIASTOLIC FUNCTION. 3. MODERATE AORTIC STENOSIS (VALVE AREA 1.1 CENTIMETERS SQUARED, MEAN GRADIENT 21mmHg). TECHNOLOGIST: MEHDI RAMOS
[2024-03-22] MEDS ORDERED: DULERA 200/5 (MOMETASONE/FORMOTEROL) INHALER IH SCH (19:00)
--- NOTE | 2024-03-26 16:12 | EKG ---
Test Date: 2024-03-20 Test Time: 17:18:03 Barber Shop Manager: MILAN MEASUREMENT RESULTS: Intervals: Rate: 77 UT: 174 QRSD: 96 QT: 372 QTc: 420 [place]: P: 88 UT: 174 QRS: -27 T: 58 INTERPRETIVE STATEMENTS: Normal sinus rhythm Minimal voltage criteria for LVH, may be normal variant Borderline ECG Compared to ECG 08/20/2023 17:22:19 Left ventricular hypertrophy now present Atrial fibrillation no longer present Myocardial infarct finding no longer present ST (T wave) deviation no longer present Electronically Signed On 03-26-24 15:59:44 TELECOM SPECIALIST by Francis Pat
--- NOTE | 2024-03-29 18:10 | P.DS ---
Admission Date: 03/21/24 Discharge Date: 03/22/24 Disposition: ROUTINE DISCHARGE Discharge Condition: GOOD Reason for Admission: Syncope Consultations: Cardiology - Dr. Pat Brief History of Present Illness: 83yo F, PMH: atrial fibrillation, CHF, lung cancer, COPD, breast cancer, lymphoma, smoker Patient was brought to ER with syncopal episode. Patient is a poor historian. States that the patient feeling dizzy and lightheaded and she sat down and passed out. Did not lose her consciousness. Did not fall or injure herself. History of brief episode and returned back to normal. Denies any chest pain. Denies any shortness of breath. No nausea vomiting or diarrhea. Family states that her heart rate was 42 at the time of syncopal episode. 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 Unclear exacty etiology which led to syncope, possibly related to recent medication adjustments (metoprolol) vs a-fib / dehydration. She described syncopal episode as sitting in car feeling like she was going to pass out, so she got out and walked toward house. She made it intermediate when she asked her son to help, he was able to help her to the porch chair, where she passed out as soon as sitting down. HR reportedly 42 at the time of syncopal episode. Of note she does report some confusion/prescription error recently. CT head, Chest xray, carotid ultrasound were all negative for any acute findings. CTA chest with findings below. She was advised to lower metoprolol to 12.5 mg BID during her last hospitalization back in August however has multiple filled medications for metoprolol 25 mg BID since then, most recently a few days ago. Discussed with cardiology who recommended continuing on 12.5 mg metoprolol BID and to follow up in office for further management, possible event monitor. During hospitalization, she was noted to have brief episode of a-fib 03/21-03/22 evening and converted back to sinus rhythm after a few minutes. No further episodes. Patient was feeling better close to her normal self, dizziness resolved, in normal sinus rhythm, no chest pain, and was deemed stable for discharge. Echocardiogram done 03/22 however pending official read. Advised patient to follow up with cardiology in next 2-4 weeks for further management, discuss echo results. CTA chest Findings: 1. No evidence of pulmonary emboli to the subsegmental level. No evidence of edema or pneumonia. 2. Diffusely distended esophagus containing likely ingested food and fluid. Achalasia is a consideration. 3. Chronic mild consolidation medial right lung base. Nodule in the right upper lobe near the hilum measures approximately 2.2 cm, previously 2 cm. It appears marginally increased in size. 4. Nodule in the trachea anteriorly measures 7 mm which is new from prior. This could reflect adherent secretions but further evaluation with bronchoscopy would be needed to exclude a small mass. 5. A few scattered small pulmonary nodules are also scattered bilaterally. No evidence of acute pneumonia Patient updated on CTA chest findings. She has known history of lung and breast cancer s/p prior lobectomy and mastectomy respectively. Advised patient to consider following up with oncology/pulmonology for further evaluation. In regards to distended esophagus, patient reports history of difficulty swallowing ongoing but unchanged for several years. Suspect chronic dysphagia related to cancer/radiation. She reports EGD/colonoscopy 1-2 years ago. Medications: Metoprolol 12.5 BID continue other home medications as prescribed Follow up: PCP 3-5 days Cardiology 2-4 weeks Please call to schedule / confirm appointments Physical Exam: GEN: Alert, NAD CV: Regular rate and rhythm, no edema Pulm: Nonlabored respirations on room air, clear bilaterally ABD: soft, nontender, nondistended Neuro: Normal speech, normal affect Vital Signs/Physical Exam: Temp Pulse Resp BP Pulse Ox 97.4 F 78 16 117/60 98 03/22/24 12:00 03/22/24 12:00 03/22/24 12:00 03/22/24 12:00 03/22/24 12:00 Laboratory Data at Discharge: WBC 7.80 thou/uL (4.3-10.9) 03/22/24 05:02 Hgb 12.1 g/dL (12.0-15.0) 03/22/24 05:02 Hct 36.6 % (36.0-45.0) 03/22/24 05:02 Plt Count 267 thou/uL (152-406) 03/22/24 05:02 PT 14.0 SECONDS (9.4-12.5) H 03/20/24 17:26 INR 1.26 03/20/24 17:26 APTT 35.9 SECONDS (24.3-36.9) 03/20/24 17:26 Sodium 140 mEq/L (136-145) 03/22/24 05:02 Potassium 4.2 mEq/L (3.5-5.1) 03/22/24 05:02 BUN 27 mg/dL (7-18) H 03/22/24 05:02 Creatinine 1.00 mg/dL (0.55-1.02) 03/22/24 05:02 Glucose 101 mg/dL (74-106) 03/22/24 05:02 Phosphorus 4.6 mg/dL (2.5-4.9) 03/22/24 05:02 Magnesium 2.1 mg/dL (1.6-2.4) 03/22/24 05:02 Total Bilirubin 0.2 mg/dL (0.2-1.0) 03/21/24 04:41 AST 22 U/L (15-37) 03/21/24 04:41 ALT 24 U/L (13-56) 03/21/24 04:41 Alkaline Phosphatase 48 U/L (45-117) 03/21/24 04:41 Home Medications: Albuterol Inhaler [Ventolin Inhaler*] 2 puff IH Q6H PRN #1 hfa.aer.[id number] 07/22/20 Albuterol Sulfate [Albuterol Sulfate 0.083% Neb Soln] 2.5 mg IH Q6H PRN 07/22/20 Levothyroxine Sodium 100 mcg PO DAILY 07/22/20 Tiotropium [Spiriva Handihaler*] 1 puff IH DAILY 07/22/20 Ascorbic Acid [Vitamin C] 1,000 mg PO DAILY 08/09/23 Cholecalciferol (Vitamin D3) [Vitamin D 5,000 IU Cap*] 1 cap PO DAILY 08/09/23 Fluticasone Propion/Salmeterol [Advair 250-50 Diskus] 1 inh IH PRN PRN 08/20/23 Apixaban [Eliquis] 5 mg PO BID 08/22/23 Diltiazem Cd [Cardizem Cd*] 120 mg PO DAILY #30 cap 08/22/23 Fluticasone Propion/Salmeterol [Advair 250-50 Diskus] 1 each IH BID 03/20/24 Metoprolol Succinate [Toprol Xl*] 12.5 mg PO BID 30 Days #30 tab 03/22/24 New Medications: Metoprolol Succinate [Toprol Xl*] 12.5 mg PO BID 30 Days #30 tab Physician Discharge Instructions: Physician discharge instructions: Patient presented to ED after syncopal episode. Unclear exacty etiology which led to syncope, possibly related to recent medication adjustments (metoprolol) vs a-fib / dehydration. She described syncopal episode as sitting in car feeling like she was going to pass out, so she got out and walked toward house. She made it intermediate when she asked her son to help, he was able to help her to the porch chair, where she passed out as soon as sitting down. HR reportedly 42 at the time of syncopal episode. Of note she does report some confusion/prescription error recently. CT head, Chest xray, carotid ultrasound were all negative for any acute findings. CTA chest with findings below. She was advised to lower metoprolol to 12.5 mg BID during her last hos pitalization back in August however has multiple filled medications for metoprolol 25 mg BID since then, most recently a few days ago. Discussed with cardiology who recommended continuing on 12.5 mg metoprolol BID and to follow up in office for further management, possible event monitor. During hospitalization, she was noted to have brief episode of a-fib 03/21-03/22 evening and converted back to sinus rhythm after a few minutes. No further episodes. Patient was feeling better close to her normal self, dizziness resolved, in normal sinus rhythm, no chest pain, and was deemed stable for discharge. Echocardiogram done 03/22 however pending official read. Advised patient to follow up with cardiology in next 2-4 weeks for further management, discuss echo results. CTA chest Findings: 1. No evidence of pulmonary emboli to the subsegmental level. No evidence of edema or pneumonia. 2. Diffusely distended esophagus containing likely ingested food and fluid. Achalasia is a consideration. 3. Chronic mild consolidation medial right lung base. Nodule in the right upper lobe near the hilum measures approximately 2.2 cm, previously 2 cm. It appears marginally increased in size. 4. Nodule in the trachea anteriorly measures 7 mm which is new from prior. This could reflect adherent secretions but further evaluation with bronchoscopy would be needed to exclude a small mass. 5. A few scattered small pulmonary nodules are also scattered bilaterally. No evidence of acute pneumonia Patient updated on CTA chest findings. She has known history of lung and breast cancer s/p prior lobectomy and mastectomy respectively. Advised patient to consider following up with oncology/pulmonology for further evaluation. In regards to distended esophagus, patient reports history of difficulty swallowing ongoing but unchanged for several years. Suspect chronic dysphagia related to cancer/radiation. She reports EGD/colonoscopy 1-2 years ago. Medications: Metoprolol 12.5 BID continue other home medications as prescribed Follow up: PCP 3-5 days Cardiology 2-4 weeks Please call to schedule / confirm appointments Followup: Francis Pat MD [ACTIVE - CAN ADMIT] - 1-2 Weeks Johnny Brandon MD [Primary Care Provider] - 1-2 Weeks Time spent managing pt's care (in minutes): 45
== END 2024-03-22 14:54 | disposition home or self-care (01) | DRG 312 ==
LOC: ER 16:53 → ERHOLD 19:30 → 2ND 20:12 → OBSVTOIN 03-21 17:18
PROVIDERS: ADMIT Family Medicine; ATTEND Hospitalist
DX: R55 Syncope and collapse (principal); I50.32 Chronic diastolic (congestive) heart failure; I11.0 Hypertensive heart disease with heart failure; I48.0 Paroxysmal atrial fibrillation; E86.0 Dehydration; E03.9 Hypothyroidism, unspecified; K22.2 Esophageal obstruction; K22.0 Achalasia of cardia; J44.9 Chronic obstructive pulmonary disease, unspecified; I25.10 Atherosclerotic heart disease of native coronary artery without angina pectoris; F17.200 Nicotine dependence, unspecified, uncomplicated; T44.7X5A Adverse effect of beta-adrenoreceptor antagonists, initial encounter; R13.10 Dysphagia, unspecified; R00.1 Bradycardia, unspecified; Z88.2 Allergy status to sulfonamides; Z90.2 Acquired absence of lung [part of]; Z88.5 Allergy status to narcotic agent; Z88.1 Allergy status to other antibiotic agents; Z88.8 Allergy status to other drugs, medicaments and biological substances; Z79.01 Long term (current) use of anticoagulants; Z90.11 Acquired absence of right breast and nipple; Z90.49 Acquired absence of other specified parts of digestive tract; Z79.890 Hormone replacement therapy; Z90.710 Acquired absence of both cervix and uterus; Z79.899 Other long term (current) drug therapy; Z85.118 Personal history of other malignant neoplasm of bronchus and lung
CPT/HCPCS: 36415; 70450; 71045; 71275; 80048; 80053; 80076; 81001; 83735; 84100; 84484; 85025; 85027; 85610; 85730; 93005; 93306; 93880; 94760; 96365; 97116; 97161; 99285; G0378; J3535; J7050; Q9967

== ENCOUNTER 2024-11-18 14:30 | Day surgery (SDC) | payer OTHER ==
[2024-11-17 15:24] LABS: Absolute Lymphocytes (CBC) 2.7 K/uL (0.7-4.9); Hematocrit 37.9 % (36.0-45.0); Hemoglobin 12.7 g/dL (12.0-15.0); MCH 30.3 pg (27.0-35.0); MCHC 33.6 g/dL (32.0-36.0); MCV 90.0 fL (80-100); MPV 6.9 fL (7.6-11.3); Nucleated Red Blood Cells % 0.0 % (0-0); RBC Red Blood Cell Count 4.21 M/uL (3.86-4.86); White Blood Count 8.80 thou/uL (4.3-10.9)
[2024-11-17 15:25] LABS: Nucleated RBC Absolute Count 0.0 (0-0)
[2024-11-17 15:33] LABS: PT Prothrombin Time 11.4 SECONDS (10-13.0); PTT, Activated Partial Thromb 32.9 SECONDS (27.2-37.4); Protime INR 1.01
[2024-11-17 15:41] LABS: Anion Gap 10.6 mEq/L (5.0-15.0); BUN Blood Urea Nitrogen 30.0 mg/dL (7-18); Glucose Level 100.0 mg/dL (74-106); Potassium 4.6 mEq/L (3.5-5.1)
--- NOTE | 2024-11-17 15:57 | RAD REPORT ---
EXAM: Chest Pa And Lat (2 Views) HISTORY: 84 years Female Pre-op pending heart catheterization COMPARISON: No prior exams FINDINGS: LUNGS/PLEURA: Left apical thickening which may be postoperative. Surgical river overlie the left hi lar region.Emphysema. CARDIAC/MEDIASTINUM: The cardiac silhouette is within normal limits. UPPER ABDOMEN: No significant abnormality. BONES: No acute abnormality. Surgical clips in the right chest wall. Multiple left-sided rib fracture s. LINES/TUBES/OTHER: Pacemaker present. IMPRESSION: Left apical thickening could be from prior lobectomy. Correlate with surgical history. If no prior green rgery, recommend chest CT for further evaluation.
[2024-11-18] MEDS ORDERED: NA CHLORIDE 0.9% 500 ML ONE (14:46)
[2024-11-18] MEDS ORDERED: HEPA 1000U/500MLS 2,000 UNIT/1,000 ML BAG IV ONE (15:13)
[2024-11-18] MEDS ORDERED: LIDOCAINE 1% 20 ML MDV ONE (15:13)
[2024-11-18] MEDS ORDERED: HEPARIN 10,000 UNIT/10 ML VIAL IV ONE (15:13)
[2024-11-18] MEDS ORDERED: ASPIRIN 325 MG TAB ONE (15:14)
[2024-11-18] MEDS ORDERED: ATROPINE SULF 1 MG/10 ML SYR IV ONE (15:14)
[2024-11-18] MEDS ORDERED: CLOPIDOGREL 75 MG TABLET ONE (15:14)
[2024-11-18] MEDS ORDERED: HEPARIN 5000 UNIT/ML 1 ML VIAL ONE (15:14)
[2024-11-18] MEDS ORDERED: TICAGRELOR 90 MG TABLET PO ONE (15:14)
[2024-11-18] MEDS ORDERED: VERAPAMIL HCL 10 MG/4 ML VIAL IV ONE (15:15)
[2024-11-18] MEDS ORDERED: MIDAZOLAM HCL 2 MG/2 ML INJ ONE (15:19)
[2024-11-18] MEDS ORDERED: FENTANYL CITR 100 MCG/2 ML ONE (15:19)
[2024-11-18] MEDS ORDERED: HEPA 1000U/500MLS 1,000 UNIT/500 ML BAG IV ONE (16:33)
[2024-11-18 18:55] VITALS: BP 127/80; O2SAT 93
--- NOTE | 2024-11-25 16:41 | OP ---
Date of Procedure: 11/18/2024 Surgeon: GEORGINA KUMAR Procedures Performed: 1. Coronary angiogram. 2. Left heart catheterization. 3. Right heart catheterization. Indications: Evaluation of aortic valve stenosis that is a low-flow, low-gradient. Access: 1. Right common femoral artery 6-Micronesian closed with Mynx closure device. 2. Right common femoral vein 7-Micronesian closed with manual pressure. Complications: None. Bleeding: Less than 50 mL. Total Sedation Time: 1 hour, used fentanyl and Versed. Description Of Procedure: After risks, benefits, and alternatives were explained, the patient agreed to the procedure and signed informed consent. The patient was brought into cardiac catheterization laboratory, prepped and draped in a sterile fashion. Then, I accessed right common femoral artery us ing micropuncture kit, ultrasound guidance, fluoroscopy, placed 6-Micronesian [place] sheath and accessed right common femoral vein using ultrasound guidance and micropuncture kit and placed a 7-Micronesian Pinn acle sheath and took a 7-Micronesian balloon-tipped [place] catheter through the venous access into the right atrium, right ventricle, pulmonary artery and wedge, obtained waveform and pressures, as well as, ob tained cardiac output using thermodilutional method, then removed the [place] and then the sheath was re moved. Manual pressure was used for closure with good hemostasis, and then I took a 6-Micronesian JL4 cat heter through the artery access over J-wire into the aortic root, engaged the left main, took standar d views, and then exchanged for 6-Micronesian JR4 catheter, engaged the RCA, took standard views, and then crossed the aortic valve and exchanged for Isabel catheter, measured simultaneous pressure in the heart and in the aorta, and pullback did not record any internal gradient. Then, I removed the dickson ter and the arterial sheath was removed and 6-Micronesian Mynx closure device was used for closure with go od hemostasis. Findings: 1. Coronary angiogram. a. Left main has diffuse 10% to 20% stenosis. b. LAD; proximal 40% stenosis. Rest of LAD is normal. Normal diagonal branches. c. Left circumflex is normal. Normal OM branches. d. RCA; proximal 30% to 40%, mid 30% stenosis. PDA and PLB with luminal irregularities. 2. Right heart cath numbers: RA pressure is 4 mean. RV pressure was 37/1, mean of 7. PA pressure w as 36/10, mean of 21. Pulmonary wedge pressure was 10, and LVEDP was 11 mmHg. Cardiac output averag e was 4.29 L/minute. Aortic valve gradient was 20 mmHg and aortic valve area was 0.86. Conclusion: 1. Moderate coronary artery disease. 2. Severe low-flow low-gradient aortic valve stenosis. Recommendation: TAVR. /VY Voice ID: [id number] Report ID: [id number]
== END 2024-11-18 19:00 | disposition home or self-care (01) ==
LOC: CCL 14:30
PROVIDERS: ATTEND Internal Medicine
DX: I35.0 Nonrheumatic aortic (valve) stenosis (principal); I25.10 Atherosclerotic heart disease of native coronary artery without angina pectoris; I11.0 Hypertensive heart disease with heart failure; I50.32 Chronic diastolic (congestive) heart failure; I48.0 Paroxysmal atrial fibrillation; J44.9 Chronic obstructive pulmonary disease, unspecified; G62.9 Polyneuropathy, unspecified; Z88.8 Allergy status to other drugs, medicaments and biological substances; Z88.0 Allergy status to penicillin; Z88.5 Allergy status to narcotic agent; Z88.2 Allergy status to sulfonamides; Z88.1 Allergy status to other antibiotic agents
CPT/HCPCS: 93005; 85025; 80048; 36415; 85610; 85730; 71046; 93460; 76937; C1893; Q9966; J1644 ×3; J2003; J2250; J3010; J7040; 99152; 99153; J0461